=== PATIENT | male | born 1950 | race Caucasian/White ===

== ENCOUNTER 2016-02-20 07:51 | Inpatient (IN) | payer OTHER, MEDICARE ==
[~2016-02-20] VITALS: Ht 180.3 cm; Wt 100.3 kg
[~2016-02-20 07:51] MED LIST: DOXY100C PO; METF500T PO; TRAM50TA PO
[2016-02-20 07:55] VITALS: BP 139/71; PULSE 88; RESP 22; TEMP 98.1; O2SAT 99
[2016-02-20] MEDS ORDERED: PIPERACIL-TAZO 4.5 GM PREMIX 100 ML IV STA (08:08)
[2016-02-20] MEDS ORDERED: VANCOMYCIN INJ 1,000 MG in SODIUM CHLOR 0.9% 250 ML INJ 250 ML IV STA (08:08)
--- NOTE | 2016-02-20 08:13 | PD ---
HPI Chief Complaint: Skin Problem Time Seen by Provider: 08:03 Travel History International Travel<30 days: No Contact w/Intl Traveler<30days: No Traveled to known affect area: No History of Present Illness HPI 65-year-old male with history of diabetes, COPD, recent admission for sepsis from right leg cellulitis, presents to the ER today after having signed out to weeks ago for sepsis, complaining of increased left leg swelling and pain. He states that he also has had multiple areas on the arms, legs, and neck of pustules to pop up and then become painful sores. He has been having chills. He states his COPD he has been acting up and he has been having shortness of breath and dyspnea on exertion ongoing. He denies any chest pains, abdominal pains, or other symptoms. Modifying Factors: None Associated Signs & Symptoms: Sores on the extremities, left leg swelling and pain Risk Factors: Recent admission for right leg cellulitis PFSH Past Medical History Asthma: Yes Anxiety: Yes Depression: Yes Heart Rhythm Problems: No Cancer: No Cardiovascular Problems: Yes High Cholesterol: Yes Chest Pain: Yes Congestive Heart Failure: No COPD: Yes Cerebrovascular Accident: Yes Diabetes: Yes Patient Takes Glucophage: No Endocrine: Yes Genitourinary: No Hypertension: Yes Immune Disorder: No Musculoskeletal: No Neurologic: No Psychiatric: Yes Reproductive: No Respiratory: Yes Sleep Apnea: No Thyroid Disease: No Tetanus Vaccination: < 5 Years Past Surgical History Abdominal Surgery: Yes (COLOSTOMY AND REVERSAL) Cardiac Surgery: No Ear Surgery: No Endocrine Surgery: No Eye Surgery: No Genitourinary Surgery: No Oral Surgery: No Thoracic Surgery: No Tonsillectomy: Yes Other Surgery: Yes (SPLEENECTOMY) Social History Alcohol Use: Yes (1-2 BEERS DAILY) Tobacco Use: No (QUIT 2016) Substance Use: No Allergies-Medications (Allergen,Severity, Reaction): Coded Allergies: No Known Allergies (Unverified , 02/20/16) Reported Meds & Prescriptions Reported Meds & Active Scripts Active Reported Metformin (Metformin HCl) 500 Mg Tab 500 Mg PO BIDPC With meals Review of Systems Except as stated in HPI: all other systems reviewed are Neg Physical Exam Narrative GENERAL: Well-nourished, well-developed elderly white male patient in mild respiratory distress after getting up from wheelchair. Awake and oriented 3. SKIN: Warm and dry. Notable for several areas of excoriation and surrounding erythema which is diffuse on his arms, back of the neck, and legs. HEAD: Normocephalic. EYES: No scleral icterus. No injection or drainage. NECK: Supple, trachea midline. CARDIOVASCULAR: Regular rate and rhythm without murmurs, gallops, or rubs. RESPIRATORY: Breath sounds equal bilaterally. No accessory muscle use. GASTROINTESTINAL: Abdomen soft, non-tender, nondistended. MUSCULOSKELETAL: No cyanosis, or edema. BACK: Nontender without obvious deformity. No CVA tenderness. EXTREMITIES: No clubbing, cyanosis, or edema. No joint tenderness, effusion, or edema noted. Bilateral posterior calf tenderness with erythema surrounding excoriated areas. No fluctuance. Data Data Last Documented VS Vital Signs Date Time Temp Pulse Resp B/P Pulse Ox O2 Delivery O2 Flow Rate FiO2 02/20/16 08:36 97 Room Air 02/20/16 08:36 18 02/20/16 07:55 98.1 88 139/71 Orders Complete Blood Count With Diff (02/20/16 08:08) Comprehensive Metabolic Panel (02/20/16 08:08) Lactic Acid Sepsis Protocol (02/20/16 08:08) Blood Culture (02/20/16 08:08) Chest, Single Ap (02/20/16 08:08) Blood Glucose (02/20/16 08:08) Ecg Monitoring (02/20/16 08:08) Iv Access Insert/Monitor (02/20/16 08:08) Oximetry (02/20/16 08:08) Oxygen Administration (02/20/16 08:08) Piperacil-Tazo 4.5 Gm Premix (Zosyn 4.5 (02/20/16 08:08) Vancomycin Inj (Vancomycin Inj) (02/20/16 08:08) Prothrombin Time / Inr (Pt) (02/20/16 08:08) Act Partial Throm Time (Ptt) (02/20/16 08:08) Us Leg Venous Doppler Bilat (02/20/16 08:08) Admit Order (Ed Use Only) (02/20/16 10:55) Labs Laboratory Tests Test 02/20/16 08:12 White Blood Count 4.0 TH/MM3 Red Blood Count 3.44 MIL/MM3 Hemoglobin 11.6 GM/DL Hematocrit 33.3 % Mean Corpuscular Volume 96.9 FL Mean Corpuscular Hemoglobin 33.6 PG Mean Corpuscular Hemoglobin 34.7 % Concent Red Cell Distribution Width 14.6 % Platelet Count 61 TH/MM3 Mean Platelet Volume 8.7 FL Neutrophils (%) (Auto) 74.7 % Lymphocytes (%) (Auto) 12.3 % Monocytes (%) (Auto) 10.7 % Eosinophils (%) (Auto) 1.5 % Basophils (%) (Auto) 0.8 % Neutrophils # (Auto) 3.0 TH/MM3 Lymphocytes # (Auto) 0.5 TH/MM3 Monocytes # (Auto) 0.4 TH/MM3 Eosinophils # (Auto) 0.1 TH/MM3 Basophils # (Auto) 0.0 TH/MM3 CBC Comment AUTO DIFF Differential Comment AUTO DIFF CONFIRMED Platelet Estimate LOW Platelet Morphology Comment NORMAL Red Cell Morphology Comment NORMAL Prothrombin Time 12.5 SEC Prothromb Time International 1.1 RATIO Ratio Activated Partial 38.2 SEC Thromboplast Time Sodium Level 136 MEQ/L Potassium Level 4.4 MEQ/L Chloride Level 105 MEQ/L Carbon Dioxide Level 21.9 MEQ/L Anion Gap 9 MEQ/L Blood Urea Nitrogen 14 MG/DL Creatinine 1.53 MG/DL Estimat Glomerular Filtration 46 ML/MIN Rate Random Glucose 127 MG/DL Lactic Acid Level 2.6 mmol/L Calcium Level 8.0 MG/DL Total Bilirubin 2.1 MG/DL Aspartate Amino Transf 74 U/L (AST/SGOT) Alanine Aminotransferase 36 U/L (ALT/SGPT) Alkaline Phosphatase 167 U/L Total Protein 7.4 GM/DL Albumin 2.3 GM/DL [facility] Medical Decision Making Medical Screen Exam Complete: Yes Emergency Medical Condition: Yes Medical Record Reviewed: Yes Interpretation(s) Laboratory Tests Test 02/20/16 08:12 Red Blood Count 3.44 MIL/MM3 (4.50-5.90) Hemoglobin 11.6 GM/DL (13.0-17.0) Hematocrit 33.3 % (39.0-51.0) Platelet Count 61 TH/MM3 (150-450) Neutrophils (%) (Auto) 74.7 % (16.0-70.0) Monocytes (%) (Auto) 10.7 % (0.0-8.0) Lymphocytes # (Auto) 0.5 TH/MM3 (1.0-4.8) Platelet Estimate LOW (NORMAL) Prothrombin Time 12.5 SEC (9.8-11.6) Activated Partial 38.2 SEC Thromboplast Time (24.3-30.1) Creatinine 1.53 MG/DL (0.60-1.30) Estimat Glomerular Filtration 46 ML/MIN (>89) Rate Random Glucose 127 MG/DL (74-106) Lactic Acid Level 2.6 mmol/L (0.4-2.0) Calcium Level 8.0 MG/DL (8.5-10.1) Total Bilirubin 2.1 MG/DL (0.2-1.0) Aspartate Amino Transf 74 U/L (15-37) (AST/SGOT) Alkaline Phosphatase 167 U/L (45-117) Albumin 2.3 GM/DL (3.4-5.0) Last 24 hours Impressions Lower Extremity Ultrasound 02/20/16807 Signed Impressions: Service Date/Time: February 09:52 - CONCLUSION: Normal examination. Alberto Guallpa MD Chest X-Ray 02/20/16807 Signed Impressions: Service Date/Time: February 08:06 - CONCLUSION: No acute disease. Gagandeep Damon MD Differential Diagnosis Cellulitis of the legs versus DVT versus dependent edema versus insect bites/ localized allergic reaction Narrative Course There is significant cellulitis and IV antibiotics were initiated. Ultrasound reveals no signs of DVT. Case was then discussed with Dr. Burgos for admission. Diagnosis Primary Impression: Cellulitis of right lower extremity Admitting Information Admitting Physician Requests: Admit Samy Bonilla MD Feb 20, 2016 08:13
--- NOTE | 2016-02-20 08:22 | RADRPT ---
EXAM DATE/TIME: 02/20/2016 08:06 [facility] COMPARISON: CHEST SINGLE AP, January 20, 2016, 3:17. INDICATIONS : Short of breath MEDICAL HISTORY : Diabetes mellitus type II. SURGICAL HISTORY : None. ENCOUNTER: Initial ACUITY: 1 day PAIN SCORE: 0/10 LOCATION: Bilateral chest FINDINGS: A single view of the chest demonstrates the lungs to be symmetrically aerated without evidence of mas s, infiltrate or effusion. The cardiomediastinal contours are unremarkable. Osseous structures are intact. CONCLUSION: No acute disease. Gagandeep Damon MD on February 20, 2016 at 8:20 Board Certified Radiologist. This report was verified electronically.
[2016-02-20 08:36] VITALS: RESP 18; O2SAT 97
[2016-02-20 08:45] LABS: BASOPHIL % 0.8 % (0.0-2.0); EOSINOPHIL # 0.1 TH/MM3 (0-0.4); EOSINOPHIL % 1.5 % (0.0-4.0); HEMATOCRIT 33.3 % (39.0-51.0); LYMPH % 12.3 % (9.0-44.0); LYMPHOCYTE # 0.5 TH/MM3 (1.0-4.8); MEAN CELL VOLUME 96.9 FL (80.0-100.0); MEAN CORPUSCULAR HEMOGLOBIN 33.6 PG (27.0-34.0); MEAN CORPUSCULAR HGB CONC 34.7 % (32.0-36.0); MONO % 10.7 % (0.0-8.0); NEUT % 74.7 % (16.0-70.0); PLATELET COUNT 61 TH/MM3 (150-450); RED BLOOD COUNT 3.44 MIL/MM3 (4.50-5.90); RED CELL DISTRIBUTION WIDTH 14.6 % (11.6-17.2)
[2016-02-20 08:48] LABS: HEMO FLAGS AUTO DIFF
[2016-02-20 08:58] LABS: ALT (GPT) 36 U/L (12-78); ANION GAP 9 MEQ/L (5-15); AST (GOT) 74 U/L (15-37); BICARBONATE 21.9 MEQ/L (21.0-32.0); BLOOD UREA NITROGEN 14 MG/DL (7-18); CHLORIDE 105 MEQ/L (98-107); GLOMERULAR FILTRATION RATE 46 ML/MIN (>89); POTASSIUM 4.4 MEQ/L (3.5-5.1); SODIUM (NA) 136 MEQ/L (136-145)
[2016-02-20 09:01] LABS: ALKALINE PHOSPHATASE 167 U/L (45-117); TOTAL BILIRUBIN ADULT 2.1 MG/DL (0.2-1.0)
[2016-02-20 09:02] LABS: APTT (PATIENT) 38.2 SEC (24.3-30.1); INTERNATIONAL NORMALIZED RATIO 1.1 RATIO; PROTHROMBIN TIME - PATIENT 12.5 SEC (9.8-11.6)
[2016-02-20 09:30] LABS: PLATELET ESTIMATE SMEAR LOW (NORMAL); PLATELET MORPHOLOGY NORMAL (NORMAL); SCAN/DIFF AUTO DIFF CONFIRMED
[2016-02-20 10:38] LABS: LACTIC ACID GHOST NOT REPORTABLE
--- NOTE | 2016-02-20 10:52 | RADRPT ---
EXAM DATE/TIME: 02/20/2016 09:52 [facility] COMPARISON: No previous studies available for comparison. INDICATIONS : Thrombosis. MEDICAL HISTORY : CVA. Diabetic. Diverticulitis. Chronic obstructive pulmonary disease. Hypertension. Hypercholester olemia SURGICAL HISTORY : Tonsillectomy. Ostomy and reversal ENCOUNTER: Subsequent ACUITY: 1 month PAIN SCORE: 10/10 LOCATION: Bilateral leg. TECHNIQUE: Venous ultrasound of the left and right leg was performed from the inguinal ligament to the proximal calf. Real-time, color Doppler and spectral tracing, compression and augmentation techniques were us ed. FINDINGS: RIGHT LEG: There is normal compressibility of the deep venous system from the inguinal region to the proximal ca lf. No echogenic clot is seen in the lumen of the common femoral, femoral, popliteal, and posterior tibial veins. There is a normal response of the venous system to proximal and distal augmentation an d respiration. LEFT LEG: There is normal compressibility of the deep venous system from the inguinal region to the proximal ca lf. No echogenic clot is seen in the lumen of the common femoral, femoral, popliteal, and posterior tibial veins. There is a normal response of the venous system to proximal and distal augmentation an d respiration. CONCLUSION: Normal examination. Alberto Guallpa MD on February 20, 2016 at 10:36 Board Certified Radiologist. This report was verified electronically.
[2016-02-20 12:36] VITALS: BP 134/74; PULSE 88; RESP 18; O2SAT 97
[2016-02-20] MEDS ORDERED: ACETAMINOPHEN/HYDROcodone 325 MG/5 MG TAB PO PRN (13:15)
[2016-02-20] MEDS ORDERED: MAGNESIUM HYDROXIDE SUSP 30 ML CUP PO PRN (13:15)
[2016-02-20] MEDS ORDERED: SODIUM CHLORIDE 0.9% FLUSH 5 ML FLUSH FLUSH PRN (13:15)
[2016-02-20] MEDS ORDERED: RESP: ALBUTEROL 2.5 MG/IPRATROPIUM 0.5 MG NEB (PRN) NEB (13:15)
[2016-02-20] MEDS ORDERED: ONDANSETRON HCL 4 MG/2 ML VIAL IVP PRN (13:15)
[2016-02-20] MEDS ORDERED: NALOXONE HCL 0.4 MG/ML AMP IV PRN (13:15)
[2016-02-20] MEDS ORDERED: Vancomycin Consult Pharmacy 1 EA OTHER SCH (13:15)
[2016-02-20] MEDS ORDERED: DEXTROSE 50% IN WATER 50 ML VIAL(D50) IV PUSH PRN (13:15)
[2016-02-20] MEDS ORDERED: ACETAMINOPHEN 325 MG TAB PO PRN ×2 (13:15)
[2016-02-20] MEDS ORDERED: GLUCAGON 1 MG/ML VIAL OTHER PRN (13:15)
[2016-02-20] MEDS ORDERED: ENOXAPARIN SODIUM 40 MG/0.4 ML SYRINGE SQ SCH (13:15)
--- NOTE | 2016-02-20 13:17 | HHI.HP ---
[facility] Primary Care Physician [facility] Admission Diagnosis leg cellulitis Diagnoses: (1) Cellulitis of both lower extremities (2) Infection of skin (3) COPD exacerbation Chief Complaint: Painful Skin rash/erythema bilateral lower extremities Travel History International Travel<30 Days: No Contact w/Intl Traveler <30 Da: No Traveled to Known Affected Are: No History of Present Illness 65-year-old male with past medical history diabetes type 2, came to the ED for evaluation of multiple skin rash, bilateral lower extremity erythema/ redness and swelling mostly worse on the left than the right evolving lower leg down to the ankle along with multiple skin sores covering his entire body surface. Patient states, that a month ago he went out fishing at the [employer] and was bitten by mosquitoes. Since then he has noticed multiple skin sores which have progressively gotten worse. Over the past few days he has had worsening and painful swelling of bilateral lower extremities however more so into left than the right. She reported subjective fever. States the pain is a 10 out of 10 in intensity. Patient also complained of shortness of breath and has noticed increase wheezing. Otherwise he has no other issues. Review of Systems Other Other 12 systems reviewed and are negative except for the one mentioned in the history of present illness Past Family Social History Past Medical History COPD Tobacco abuse Liver cirrhosis Type 2 diabetes Hypertension Dyslipidemia Diverticulitis h Past Surgical History History of colostomy and reversal Splenectomy Tonsillectomy Reported Medications Metformin 500 mg twice a day Allergies: Coded Allergies: No Known Allergies (Unverified , 02/20/16) Family History Family history positive for diabetes type 2 in his grandmother Social History Used to smoke 1 pack per day 40 years until he quit 2 weeks ago Drinks 1-2 beers per day Physical Exam Vital Signs Vital Signs Date Time Temp Pulse Resp B/P Pulse Ox O2 Delivery O2 Flow Rate FiO2 02/20/16 12:36 88 18 134/74 97 02/20/16 08:36 97 Room Air 02/20/16 08:36 18 97 Room Air 02/20/16 07:55 98.1 88 22 139/71 99 Physical Exam GENERAL: This is a well-nourished, well-developed patient, in no apparent distress. SKIN: Multiple sores with several areas of excoriation and surrounding erythema which is diffuse on his arms, back of the neck, and legs. HEAD: Atraumatic. Normocephalic. No temporal or scalp tenderness. EYES: Pupils equal round and reactive. Extraocular motions intact. No scleral icterus. No injection or drainage. ENT: Nose without bleeding, purulent drainage or septal hematoma. Throat without erythema, tonsillar hypertrophy or exudate. Uvula midline. Airway patent. NECK: Trachea midline. No JVD or lymphadenopathy. Supple, nontender, no meningeal signs. CARDIOVASCULAR: Regular rate and rhythm without murmurs, gallops, or rubs. RESPIRATORY: Clear to auscultation. Breath sounds decrease bilaterally. Positive for expiratory wheezing GASTROINTESTINAL: Abdomen soft, non-tender, nondistended. No hepato-splenomegaly , or palpable masses. No guarding. MUSCULOSKELETAL: Extremities without clubbing, cyanosis, or edema. Bilateral posterior calf tenderness with erythema surrounding excoriated areas L>R lower extremities NEUROLOGICAL: Awake and alert. Cranial nerves II through XII intact. Motor and sensory grossly within normal limits. Five out of 5 muscle strength in all muscle groups. Normal speech. Laboratory Laboratory Tests Test 02/20/16 02/20/16 08:12 11:56 White Blood Count 4.0 Red Blood Count 3.44 Hemoglobin 11.6 Hematocrit 33.3 Mean Corpuscular Volume 96.9 Mean Corpuscular Hemoglobin 33.6 Mean Corpuscular Hemoglobin 34.7 Concent Red Cell Distribution Width 14.6 Platelet Count 61 Mean Platelet Volume 8.7 Neutrophils (%) (Auto) 74.7 Lymphocytes (%) (Auto) 12.3 Monocytes (%) (Auto) 10.7 Eosinophils (%) (Auto) 1.5 Basophils (%) (Auto) 0.8 Neutrophils # (Auto) 3.0 Lymphocytes # (Auto) 0.5 Monocytes # (Auto) 0.4 Eosinophils # (Auto) 0.1 Basophils # (Auto) 0.0 CBC Comment AUTO DIFF Differential Comment AUTO DIFF CONFIRMED Platelet Estimate LOW Platelet Morphology Comment NORMAL Red Cell Morphology Comment NORMAL Prothrombin Time 12.5 Prothromb Time International 1.1 Ratio Activated Partial 38.2 Thromboplast Time Sodium Level 136 Potassium Level 4.4 Chloride Level 105 Carbon Dioxide Level 21.9 Anion Gap 9 Blood Urea Nitrogen 14 Creatinine 1.53 Estimat Glomerular Filtration 46 Rate Random Glucose 127 Lactic Acid Level 2.6 1.1 Calcium Level 8.0 Total Bilirubin 2.1 Aspartate Amino Transf 74 (AST/SGOT) Alanine Aminotransferase 36 (ALT/SGPT) Alkaline Phosphatase 167 Total Protein 7.4 Albumin 2.3 Date/Time Procedure Status Source Growth 02/20/16 08:20 Aerobic Blood Culture Received Blood Peripheral Pending 02/20/16 08:20 Anaerobic Blood Culture Received Blood Peripheral Pending Result Diagram: 02/20/1612 02/20/16811 Imaging Last Impressions Lower Extremity Ultrasound 02/20/16807 Signed Impressions: Service Date/Time: February 09:52 - CONCLUSION: Normal examination. Alberto Guallpa MD Chest X-Ray 02/20/16807 Signed Impressions: Service Date/Time: , February 20, 2016 08:06 - CONCLUSION: No acute disease. Gagandeep Damon MD Assessment and Plan Problem List: (1) Cellulitis of both lower extremities ICD Code: L03.115 Status: Acute (2) Infection of skin ICD Code: L08.9 Status: Acute (3) COPD exacerbation ICD Code: J44.1 Status: Acute (4) Alcohol dependence ICD Code: F10.20 Status: Acute (5) Thrombocytopenia ICD Code: D69.6 Status: Acute Assessment and Plan 65-year-old male with Cellulitis of both lower extremities as well as skin infection: Status post vancomycin and Zosyn IV 1 in ED, will continue with Zosyn 3.3 and 75 mg every 8 IV and vancomycin 1.2 mg every 24H pending culture. May consider consultation to infectious diseases specialist COPD exacerbation: Chest x-ray noted and reviewed by me without any acute pulmonary disease however patient symptomatic therefore was treated with prednisone 20 mg by mouth daily, start Spiriva, Mucinex and Symbicort as well as DuoNeb when necessary and schedule. Maintain oxygen saturation above 92%. Diabetes type 2: Resume metformin, starts insulin sliding scale with fingerstick blood glucose monitoring. Hypertension: Currently normotensive on no medication, continue to monitor. History of hyperlipidemia: Not on any statin, check lipid profile and treat accordingly. History of alcohol abuse: Counseled to quit, start rally pack, CIWS per protocol Thrombocytopenia: 2/2 liver disease, continue to monitor DVT prophylaxis: Heparin Code Status Full code Discussed Condition With Patient, ED physician Physician Certification 2 Midnight Certification Type: Admission for Inpatient Services Order for Inpatient Services The services are ordered in accordance with Medicare regulations or non- Medicare payer requirements, as applicable. In the case of services not specified as inpatient-only, they are appropriately provided as inpatient services in accordance with the 2-midnight benchmark. Estimated LOS (days): 2 days is the estimated time the patient will need to remain in the hospital, assuming treatment plan goals are met and no additional complications. Post-Hospital Plan: Not yet determined Gagandeep Burgos MD Feb 20, 2016 13:17
[2016-02-20] MEDS ORDERED: predniSONE 20 MG TAB PO SCH (14:00)
[2016-02-20] MEDS ORDERED: VANCOMYCIN 1,000 MG/NS 250 ML IV ONE ×2 (15:00)
[2016-02-20 15:07] VITALS: BP 138/76; PULSE 90; RESP 18; O2SAT 96
[2016-02-20] MEDS: ACETAMINOPHEN/HYDROcodone 325 MG/7.5 MG TAB PO PRN (15:12)
[2016-02-20] MEDS: PIPERACIL-TAZO 3.375 GM PREMIX 50 ML IV SCH (16:33)
[2016-02-20] MEDS: INSULIN NovoLIN REGULAR SUPPLEMENTAL SCALE SQ SCH ×2 (16:42→21:00)
[2016-02-20] MEDS: RESP: ALBUTEROL 2.5 MG/IPRATROPIUM 0.5 MG NEB (SCH) NEB ×2 (16:52→22:38)
[2016-02-20] MEDS: metFORMIN HCL 500 MG TAB PO SCH (17:52)
[2016-02-20 18:07] VITALS: BP 142/80; PULSE 88; RESP 18; O2SAT 95
[2016-02-20] MEDS: guaiFENesin E.R. 600 MG TAB PO SCH (22:28)
[2016-02-20] MEDS: HEPARIN SODIUM - SQ 10,000 UNITS/ML VIAL SQ SCH (22:28)
[2016-02-20] MEDS: SODIUM CHLORIDE 0.9% FLUSH 5 ML FLUSH FLUSH SCH (23:09)
[2016-02-20] MEDS: BUDESONIDE-FORMOTEROL 160/4.5 MCG INHALER INH SCH (23:09)
[2016-02-20] MEDS: LACTOBACILLUS ACIDOPHILUS TAB PO SCH (23:10)
[2016-02-21] MEDS: PIPERACIL-TAZO 3.375 GM PREMIX 50 ML IV SCH ×3 (00:01→17:35)
[2016-02-21 00:08] VITALS: BP 128/76; PULSE 70; RESP 22; TEMP 96.2; O2SAT 97
[2016-02-21 04:27] VITALS: BP 107/56; PULSE 57; RESP 16; TEMP 96.7; O2SAT 96
[2016-02-21] MEDS: INSULIN NovoLIN REGULAR SUPPLEMENTAL SCALE SQ SCH ×4 (07:00→22:29)
--- NOTE | 2016-02-21 08:44 | HHI.PR ---
Subjective Remarks Follow-up lower extremity cellulitis/skin sores and infection 02/21/16-patient seen and examined, complaints of lower extremities wound drainage. Some shortness of breath and wheezing as well as coughing mostly nonproductive. Afebrile Objective Vitals Vital Signs Date Time Temp Pulse Resp B/P Pulse Ox O2 Delivery O2 Flow Rate FiO2 02/21/16 04:27 96.7 57 16 107/56 96 02/21/16 00:08 96.2 70 22 128/76 97 02/20/16 18:07 88 18 142/80 95 Room Air 02/20/16 15:07 90 18 138/76 96 Room Air 02/20/16 12:36 88 18 134/74 97 I/O 02/20/16 02/20/16 02/20/16 02/21/16 02/21/16 02/21/16 07:00 15:00 23:00 07:00 15:00 23:00 Intake Total 350 ml Output Total 800 ml Balance -450 ml Intake Oral 350 ml Output Urine Total 800 ml # Voids 2 Result Diagram: 02/20/16 0812 02/20/16 0812 Imaging Last Impressions Lower Extremity Ultrasound 02/20/16 0808 Signed Impressions: Service Date/Time: February 09:52 - CONCLUSION: Normal examination. Alberto Guallpa MD Chest X-Ray 02/20/16 0808 Signed Impressions: Service Date/Time: February 08:06 - CONCLUSION: No acute disease. Gagandeep Damon MD Objective Remarks GENERAL: NAD SKIN: Multiple sores with several areas of excoriation and surrounding erythema which is diffuse on his arms, back of the neck, and legs. HEAD: Normocephalic. EYES: No scleral icterus. No injection or drainage. NECK: Supple, trachea midline. No JVD or lymphadenopathy. CARDIOVASCULAR: Regular rate and rhythm without murmurs, gallops, or rubs. RESPIRATORY: Breath sounds equal bilaterally. No accessory muscle use.exp wheezing GASTROINTESTINAL: Abdomen soft, non-tender, nondistended. MUSCULOSKELETAL: No cyanosis, or edema. Bilateral posterior calf tenderness with erythema surrounding excoriated areas L>R lower extremities with some drainage BACK: Nontender without obvious deformity. No CVA tenderness. A/P Problem List: (1) Cellulitis of both lower extremities ICD Code: L03.115 Status: Acute (2) Infection of skin ICD Code: L08.9 Status: Acute (3) COPD exacerbation ICD Code: J44.1 Status: Acute (4) Alcohol dependence ICD Code: F10.20 Status: Acute (5) Thrombocytopenia ICD Code: D69.6 Status: Acute Assessment and Plan 65-year-old male with Cellulitis of both lower extremities as well as skin infection: Status post vancomycin and Zosyn IV 1 in ED, on Zosyn and vancomycin IV pending culture. May consider consultation to infectious diseases specialist. Will consult wound care nurse COPD exacerbation: Patient still symptomatic therefore will d/c prednisone 20 mg by mouth daily, start Solu-Medrol 40 mg IV every 12H, continue Spiriva, Mucinex and Symbicort as well as DuoNeb when necessary and schedule. Maintain oxygen saturation above 92%. Diabetes type 2: on metformin, continue insulin sliding scale with fingerstick blood glucose monitoring. Hypertension: Currently normotensive on no medication, continue to monitor. History of hyperlipidemia: Not on any statin, check lipid profile and treat accordingly. History of alcohol abuse: Counseled to quit, continue rally pack, CIWS per protocol Thrombocytopenia: 2/2 liver disease, continue to monitor DVT prophylaxis: Gagandeep Thacker MD Feb 21, 2016 08:44
[2016-02-21 08:57] VITALS: BP 103/54; PULSE 55; RESP 20; TEMP 96.3; O2SAT 96
[2016-02-21] MEDS ORDERED: VANCOMYCIN INJ 1,250 MG in SODIUM CHLOR 0.9% 250 ML INJ 250 ML IV SCH (09:00)
[2016-02-21 09:21] LABS: AUTOMATED NEUTROPHIL # 1.5 TH/MM3 (1.8-7.7); BASOPHIL % 0.4 % (0.0-2.0); EOSINOPHIL % 0.2 % (0.0-4.0); HEMATOCRIT 31.1 % (39.0-51.0); LYMPH % 24.6 % (9.0-44.0); LYMPHOCYTE # 0.6 TH/MM3 (1.0-4.8); MEAN CELL VOLUME 96.3 FL (80.0-100.0); MEAN CORPUSCULAR HEMOGLOBIN 32.3 PG (27.0-34.0); MEAN CORPUSCULAR HGB CONC 33.6 % (32.0-36.0); MONO % 17.4 % (0.0-8.0); NEUT % 57.4 % (16.0-70.0); PLATELET COUNT 53 TH/MM3 (150-450); RED BLOOD COUNT 3.23 MIL/MM3 (4.50-5.90); WHITE BLOOD COUNT 2.6 TH/MM3 (4.0-11.0)
[2016-02-21 09:39] LABS: HEMO FLAGS AUTO DIFF
[2016-02-21 09:47] LABS: ALKALINE PHOSPHATASE 128 U/L (45-117); ALT (GPT) 32 U/L (12-78); ANION GAP 10 MEQ/L (5-15); AST (GOT) 74 U/L (15-37); BICARBONATE 20.4 MEQ/L (21.0-32.0); BLOOD UREA NITROGEN 18 MG/DL (7-18); CHLORIDE 109 MEQ/L (98-107); GLOMERULAR FILTRATION RATE 49 ML/MIN (>89); HDL CHOLESTEROL 18.3 MG/DL (40.0-60.0); LDL CHOLESTEROL 45 MG/DL (0-99); POTASSIUM 4.2 MEQ/L (3.5-5.1); SODIUM (NA) 139 MEQ/L (136-145); TOTAL BILIRUBIN ADULT 1.5 MG/DL (0.2-1.0)
[2016-02-21] MEDS: BUDESONIDE-FORMOTEROL 160/4.5 MCG INHALER INH SCH ×2 (10:30→22:20)
[2016-02-21] MEDS: LACTOBACILLUS ACIDOPHILUS TAB PO SCH ×2 (10:31→22:19)
[2016-02-21] MEDS: metFORMIN HCL 500 MG TAB PO SCH ×2 (10:31→17:34)
[2016-02-21] MEDS: guaiFENesin E.R. 600 MG TAB PO SCH ×2 (10:31→22:19)
[2016-02-21] MEDS: methylPREDNISolone SOD SUCC 40 MG/1 ML VIAL IV PUSH SCH ×2 (10:31→22:18)
[2016-02-21] MEDS: SODIUM CHLORIDE 0.9% FLUSH 5 ML FLUSH FLUSH SCH ×2 (10:32→22:18)
[2016-02-21] MEDS: VANCOMYCIN INJ 1,500 MG in SODIUM CHLORID 0.9% 500 ML INJ 500 ML IV SCH (10:33)
[2016-02-21] MEDS: HEPARIN SODIUM - SQ 10,000 UNITS/ML VIAL SQ SCH ×2 (10:33→22:19)
[2016-02-21] MEDS: RESP: ALBUTEROL 2.5 MG/IPRATROPIUM 0.5 MG NEB (SCH) NEB ×3 (10:47→20:00)
[2016-02-21] MEDS: TIOTROPIUM BROMIDE 18 MCG INH INH SCH (11:33)
[2016-02-21 11:43] VITALS: BP 113/70; PULSE 67; RESP 20; TEMP 97.7; O2SAT 97
[2016-02-21 11:43] LABS: PLATELET ESTIMATE SMEAR LOW (NORMAL); PLATELET MORPHOLOGY NORMAL (NORMAL); SCAN/DIFF AUTO DIFF CONFIRMED
[2016-02-21 16:02] VITALS: BP 130/73; PULSE 77; RESP 22; TEMP 97.8; O2SAT 97
[2016-02-21] MEDS: ACETAMINOPHEN/HYDROcodone 325 MG/7.5 MG TAB PO PRN (17:35)
[2016-02-21 19:44] VITALS: BP 130/71; PULSE 61; RESP 20; TEMP 98.1; O2SAT 95
[2016-02-21] MEDS: TEMAZEPAM 15 MG CAP PO PRN (22:34)
[2016-02-22] VITALS (7 sets, daily range): BP systolic 122–159; BP diastolic 61–80; PULSE 57–78; RESP 18–20; TEMP 96.2–98.1; O2SAT 93–97
[2016-02-22] MEDS: PIPERACIL-TAZO 3.375 GM PREMIX 50 ML IV SCH ×3 (00:03→17:48)
[2016-02-22 06:46] LABS: BICARBONATE 22.4 MEQ/L (21.0-32.0); POTASSIUM 4.8 MEQ/L (3.5-5.1)
[2016-02-22] MEDS: INSULIN NovoLIN REGULAR SUPPLEMENTAL SCALE SQ SCH ×4 (07:00→21:00)
[2016-02-22 07:05] LABS: AUTOMATED NEUTROPHIL # 2.7 TH/MM3 (1.8-7.7); BASOPHIL % 0.1 % (0.0-2.0); LYMPH % 13.4 % (9.0-44.0); LYMPHOCYTE # 0.4 TH/MM3 (1.0-4.8); MEAN CELL VOLUME 97.1 FL (80.0-100.0); MEAN CORPUSCULAR HEMOGLOBIN 32.6 PG (27.0-34.0); MEAN CORPUSCULAR HGB CONC 33.6 % (32.0-36.0); MONO % 4.6 % (0.0-8.0); NEUT % 81.9 % (16.0-70.0); PLATELET COUNT 48 TH/MM3 (150-450); RED CELL DISTRIBUTION WIDTH 15.2 % (11.6-17.2); WHITE BLOOD COUNT 3.3 TH/MM3 (4.0-11.0)
[2016-02-22 07:15] LABS: HEMO FLAGS AUTO DIFF
[2016-02-22] MEDS: RESP: ALBUTEROL 2.5 MG/IPRATROPIUM 0.5 MG NEB (SCH) NEB ×2 (08:00→14:00)
--- NOTE | 2016-02-22 09:38 | HHI.PR ---
Subjective Remarks Follow-up lower extremity cellulitis/skin sores and infection 02/21/16-patient seen and examined, complaints of lower extremities wound drainage. Some shortness of breath and wheezing as well as coughing mostly nonproductive. Afebrile 02/22/16-patient seen and examined; reports significant improvement or shortness of breath and wheezing as well as cough. Afebrile denies any chest pain. States his wounds are looking better Objective Vitals Vital Signs Date Time Temp Pulse Resp B/P Pulse Ox O2 Delivery O2 Flow Rate FiO2 02/22/16 07:26 97.7 60 18 122/72 95 02/22/16 04:25 98.1 58 20 159/74 94 02/22/16 00:16 98.0 59 18 125/61 97 02/21/16 19:44 98.1 61 20 130/71 95 02/21/16 18:40 18 02/21/16 16:02 97.8 77 22 130/73 97 02/21/16 11:43 97.7 67 20 113/70 97 Result Diagram: 02/22/1652102/22/16521 Imaging Last Impressions Lower Extremity Ultrasound 02/20/16807 Signed Impressions: Service Date/Time: February 09:52 - CONCLUSION: Normal examination. Alberto Guallpa MD Chest X-Ray 02/20/16807 Signed Impressions: Service Date/Time: February 08:06 - CONCLUSION: No acute disease. Gagandeep Damon MD Objective Remarks GENERAL: NAD SKIN: Multiple sores with several areas of excoriation and improving surrounding erythema which is diffuse on his arms, back of the neck, and legs. HEAD: Normocephalic. EYES: No scleral icterus. No injection or drainage. NECK: Supple, trachea midline. No JVD or lymphadenopathy. CARDIOVASCULAR: Regular rate and rhythm without murmurs, gallops, or rubs. RESPIRATORY: Breath sounds equal bilaterally. No accessory muscle use.exp wheezing GASTROINTESTINAL: Abdomen soft, non-tender, nondistended. MUSCULOSKELETAL: No cyanosis, or edema. Bilateral posterior improving calf tenderness with improving erythema surrounding excoriated areas L>R lower extremities with some drainage BACK: Nontender without obvious deformity. No CVA tenderness. A/P Problem List: (1) Cellulitis of both lower extremities ICD Code: L03.115 Status: Acute (2) Infection of skin ICD Code: L08.9 Status: Acute (3) COPD exacerbation ICD Code: J44.1 Status: Acute (4) Alcohol dependence ICD Code: F10.20 Status: Acute (5) Thrombocytopenia ICD Code: D69.6 Status: Acute Assessment and Plan 65-year-old male with Cellulitis of both lower extremities as well as skin infection: Status post vancomycin and Zosyn IV 1 in ED, continue Zosyn and vancomycin IV pending culture. May consider consultation to infectious diseases specialist if no improvement. Appreciate wound care nurse recommendation COPD exacerbation: Improving on Solu-Medrol 40 mg IV every 12H, continue Spiriva , Mucinex and Symbicort as well as DuoNeb when necessary and schedule. Likely switch to by mouth prednisone in a.m. 02/23/16. Maintain oxygen saturation above 92%. Peripheral vascular disease: Check CTA runoff bilateral lower extremities prior to discharge and May consider evaluation from vascular surgery Diabetes type 2: on metformin, continue insulin sliding scale with fingerstick blood glucose monitoring. Hypertension: Currently normotensive on no medication, continue to monitor. History of hyperlipidemia: LDL 45 therefore will not start patient on any statin History of alcohol abuse: Counseled to quit, continue rally pack, CIWS per protocol Thrombocytopenia: 2/2 liver disease, continue to monitor DVT prophylaxis: Heparin Gagandeep Burgos MD Feb 22, 2016 09:38
[2016-02-22] MEDS: SODIUM CHLORIDE 0.9% FLUSH 5 ML FLUSH FLUSH SCH ×2 (10:43→21:00)
[2016-02-22] MEDS: TIOTROPIUM BROMIDE 18 MCG INH INH SCH (10:43)
[2016-02-22] MEDS: BUDESONIDE-FORMOTEROL 160/4.5 MCG INHALER INH SCH ×2 (10:44→21:14)
[2016-02-22] MEDS: methylPREDNISolone SOD SUCC 40 MG/1 ML VIAL IV PUSH SCH ×2 (10:44→21:13)
[2016-02-22] MEDS: LACTOBACILLUS ACIDOPHILUS TAB PO SCH ×2 (10:44→21:13)
[2016-02-22] MEDS: metFORMIN HCL 500 MG TAB PO SCH (10:44)
[2016-02-22] MEDS: HEPARIN SODIUM - SQ 10,000 UNITS/ML VIAL SQ SCH ×2 (10:44→21:13)
[2016-02-22] MEDS: guaiFENesin E.R. 600 MG TAB PO SCH ×2 (10:45→21:13)
[2016-02-22 10:53] LABS: PLATELET ESTIMATE SMEAR LOW (NORMAL); PLATELET MORPHOLOGY NORMAL (NORMAL); SCAN/DIFF AUTO DIFF CONFIRMED; TARGET CELLS 1+ (NORMAL)
[2016-02-22] MEDS: VANCOMYCIN INJ 1,500 MG in SODIUM CHLORID 0.9% 500 ML INJ 500 ML IV SCH (11:53)
[2016-02-22] MEDS: diphenhydrAMINE HCL 25 MG CAP PO PRN (21:13)
[2016-02-23] VITALS: BP 144/78; PULSE 67; RESP 20; TEMP 96.5; O2SAT 93
[2016-02-23] MEDS: PIPERACIL-TAZO 3.375 GM PREMIX 50 ML IV SCH ×2 (00:56→08:49)
[2016-02-23] MEDS: ACETAMINOPHEN/HYDROcodone 325 MG/7.5 MG TAB PO PRN ×3 (00:56→21:08)
[2016-02-23 04:00] VITALS: BP 123/74; PULSE 59; RESP 20; TEMP 96.6; O2SAT 94
[2016-02-23] MEDS: INSULIN NovoLIN REGULAR SUPPLEMENTAL SCALE SQ SCH ×4 (07:00→21:00)
[2016-02-23] MEDS: RESP: ALBUTEROL 2.5 MG/IPRATROPIUM 0.5 MG NEB (SCH) NEB ×3 (07:35→21:04)
[2016-02-23 08:02] VITALS: BP 142/93; PULSE 70; RESP 18; TEMP 96.8; O2SAT 97
[2016-02-23] MEDS: guaiFENesin E.R. 600 MG TAB PO SCH ×2 (08:49→21:07)
[2016-02-23] MEDS: BUDESONIDE-FORMOTEROL 160/4.5 MCG INHALER INH SCH ×2 (08:50→21:08)
[2016-02-23] MEDS: TIOTROPIUM BROMIDE 18 MCG INH INH SCH (08:50)
[2016-02-23] MEDS: SODIUM CHLORIDE 0.9% FLUSH 5 ML FLUSH FLUSH SCH ×2 (08:50→21:08)
[2016-02-23] MEDS: HEPARIN SODIUM - SQ 10,000 UNITS/ML VIAL SQ SCH ×2 (08:50→21:07)
[2016-02-23] MEDS: LACTOBACILLUS ACIDOPHILUS TAB PO SCH ×2 (08:50→21:07)
[2016-02-23] MEDS: predniSONE 20 MG TAB PO SCH (08:50)
[2016-02-23] MEDS ORDERED: PHARMACY ORDERED LAB XX ONE (09:45)
[2016-02-23] MEDS: metFORMIN HCL 500 MG TAB PO SCH ×2 (10:47→17:12)
[2016-02-23] MEDS: VANCOMYCIN INJ 1,500 MG in SODIUM CHLORID 0.9% 500 ML INJ 500 ML IV SCH (10:57)
[2016-02-23 12:02] VITALS: BP 127/75; PULSE 53; RESP 18; TEMP 96.6; O2SAT 99
--- NOTE | 2016-02-23 13:14 | HHI.FPPN ---
Subjective Remarks Patient seen and examined this am. Vitals are stable. Afebrile. Saturating well on room air. Current recieving breating treatment, coughing the entire time. It is dry. Constant tickle. Feels his leg infection is improving. Has lots of itching, mostly in the morning and in the evening. He subconsciously scratches and then bleeds from his sore sites. Objective Vitals Vital Signs Date Time Temp Pulse Resp B/P Pulse Ox O2 Delivery O2 Flow Rate FiO2 02/23/16 12:02 96.6 53 18 127/75 99 02/23/16 08:02 96.8 70 18 142/93 97 02/23/16 04:00 96.6 59 20 123/74 94 02/23/16 01:56 18 02/23/16 00:00 96.5 67 20 144/78 93 02/22/16 20:00 96.2 78 20 138/72 95 02/22/16 18:42 96.6 69 18 140/80 94 02/22/16 15:08 97.5 57 18 130/78 93 I/O 02/22/16 02/22/16 02/22/16 02/23/16 02/23/16 02/23/16 07:00 15:00 23:00 07:00 15:00 23:00 Intake Total 120 ml 290 ml Balance 120 ml 290 ml Intake Oral 120 ml 240 ml IV Total 50 ml # Voids 1 2 # Bowel Movements 0 0 Result Diagram: 02/22/16 0522 02/22/16 0522 Imaging Last Impressions Lower Extremity Ultrasound 02/20/16 0808 Signed Impressions: Service Date/Time: February 09:52 - CONCLUSION: Normal examination. Alberto Guallpa MD Chest X-Ray 02/20/16 0808 Signed Impressions: Service Date/Time: February 08:06 - CONCLUSION: No acute disease. Gagandeep Damon MD Objective Remarks GENERAL: NAD SKIN: Multiple sores with several areas of excoriation and improving surrounding erythema which is diffuse on his arms, back of the neck, and legs. Sores on left leg (approx 5) are draining with surrounding erythema and several lesions on right leg are healing and have healing scar in the center. The left leg has some swelling. HEAD: Normocephalic. EYES: No scleral icterus. No injection or drainage. NECK: Supple, trachea midline. No JVD or lymphadenopathy. CARDIOVASCULAR: Regular rate and rhythm without murmurs, gallops, or rubs. RESPIRATORY: Breath sounds equal bilaterally. No accessory muscle use.exp wheezing GASTROINTESTINAL: Abdomen soft, non-tender, nondistended. MUSCULOSKELETAL: No cyanosis. Non pitting edema of LE. BACK: Nontender without obvious deformity. No CVA tenderness. A/P Assessment and Plan 65-year-old male with Cellulitis of both lower extremities as well as skin infection: Status post vancomycin and Zosyn IV 1 in ED, will continue with Zosyn 3.3 and 75 mg every 8 IV and vancomycin 1.2 mg every 24H (since 02/19). Appears significantly improved. * blood culture negative x 3 days * Will switch to PO abx Keflex 500 mg PO q8hrs * Motrin for swelling COPD exacerbation: Chest x-ray negative any acute pulmonary disease however patient was symptomatic therefore and was treated with prednisone 20 mg by mouth daily, Spiriva, Mucinex and Symbicort as well as DuoNeb when necessary and schedule. Maintain oxygen saturation above 92%. * Tessalon peals for dry nagging cough * Honey prn Diabetes type 2: Resume metformin, starts insulin sliding scale with fingerstick blood glucose monitoring. Hypertension: Currently normotensive on no medication, continue to monitor. History of hyperlipidemia: lipid profile wnl History of alcohol abuse: Counseled to quit, rally pack, CIWA per protocol Thrombocytopenia: 2/2 liver disease, continue to monitor DVT prophylaxis: Heparin Discharge Planning Will switch to PO abx, if continues to improve plan for d/c tomorrow. Problem List: (1) COPD exacerbation Status: Acute (2) Thrombocytopenia Status: Acute (3) Alcohol dependence Status: Acute (4) Cellulitis of both lower extremities Status: Acute Cathi Ruth MD R3 Feb 23, 2016 13:14
[2016-02-23] MEDS: IBUPROFEN 600 MG TAB PO SCH ×2 (14:00→21:07)
[2016-02-23] MEDS: CEPHALEXIN MONOHYDRATE 500 MG CAP PO SCH ×2 (14:45→21:06)
[2016-02-23 16:00] VITALS: BP 119/79; PULSE 53; RESP 18; TEMP 96.8; O2SAT 98
[2016-02-23] MEDS: diphenhydrAMINE HCL 25 MG CAP PO PRN (17:12)
[2016-02-23] MEDS: BENZONATATE 100 MG CAP PO SCH (17:12)
[2016-02-23 20:00] VITALS: BP 146/74; PULSE 63; RESP 20; TEMP 96.8; O2SAT 93
[2016-02-24] VITALS: BP 121/86; PULSE 68; RESP 20; TEMP 96.8; O2SAT 94
[2016-02-24 04:00] VITALS: BP 134/72; PULSE 62; RESP 20; TEMP 96.7; O2SAT 96
[2016-02-24] MEDS: CEPHALEXIN MONOHYDRATE 500 MG CAP PO SCH ×3 (06:55→21:04)
[2016-02-24] MEDS: IBUPROFEN 600 MG TAB PO SCH ×3 (06:56→21:04)
[2016-02-24] MEDS: INSULIN NovoLIN REGULAR SUPPLEMENTAL SCALE SQ SCH ×4 (06:56→21:00)
[2016-02-24] MEDS: ACETAMINOPHEN/HYDROcodone 325 MG/7.5 MG TAB PO PRN ×2 (06:59→21:04)
[2016-02-24] MEDS: RESP: ALBUTEROL 2.5 MG/IPRATROPIUM 0.5 MG NEB (SCH) NEB ×2 (07:36→12:38)
[2016-02-24 08:00] VITALS: BP 136/74; PULSE 62; RESP 20; TEMP 96.9; O2SAT 96
[2016-02-24 08:14] LABS: BICARBONATE 20.5 MEQ/L (21.0-32.0)
[2016-02-24 08:16] LABS: POTASSIUM 5.2 MEQ/L (3.5-5.1)
[2016-02-24] MEDS: metFORMIN HCL 500 MG TAB PO SCH (08:33)
[2016-02-24] MEDS: BENZONATATE 100 MG CAP PO SCH ×3 (08:33→17:05)
[2016-02-24] MEDS: predniSONE 20 MG TAB PO SCH (08:33)
[2016-02-24] MEDS: LACTOBACILLUS ACIDOPHILUS TAB PO SCH ×2 (08:33→21:04)
[2016-02-24] MEDS: guaiFENesin E.R. 600 MG TAB PO SCH ×2 (08:34→21:03)
[2016-02-24] MEDS: HEPARIN SODIUM - SQ 10,000 UNITS/ML VIAL SQ SCH ×2 (08:35→21:05)
[2016-02-24] MEDS: diphenhydrAMINE HCL 25 MG CAP PO PRN ×3 (08:40→21:03)
[2016-02-24] MEDS: TIOTROPIUM BROMIDE 18 MCG INH INH SCH (08:41)
[2016-02-24] MEDS: BUDESONIDE-FORMOTEROL 160/4.5 MCG INHALER INH SCH ×2 (08:42→21:00)
[2016-02-24 12:00] VITALS: BP 128/72; PULSE 64; RESP 20; TEMP 97.6; O2SAT 97
[2016-02-24] MEDS ORDERED: SYMB160A INH (12:28)
[2016-02-24] MEDS ORDERED: CEPH500C PO (12:28)
[2016-02-24] MEDS ORDERED: SPIRCAP INH (12:28)
[2016-02-24] MEDS ORDERED: LACT PO (12:28)
[2016-02-24] MEDS ORDERED: MUCI600T PO (12:28)
[2016-02-24] MEDS ORDERED: DIPH25CA PO (12:28)
--- NOTE | 2016-02-24 12:28 | HHI.DCPOC ---
Discharge Care Plan Goals to Promote Your Health * To prevent worsening of your condition and complications * To maintain your health at the optimal level Directions to Meet Your Goals Take your medications as prescribed Follow your dietary instruction Follow activity as directed Keep your appointments as scheduled Take your immunizations and boosters as scheduled If your symptoms worsen call your PCP, if no PCP go to Urgent Care Center or Emergency Room Smoking is Dangerous to Your Health. Avoid second hand smoke Call the 24-hour hour crisis hotline for domestic abuse at Mona Contreras MD Feb 24, 2016 12:28
--- NOTE | 2016-02-24 12:28 | HHI.DS ---
Discharge Summary Admission Date Feb 20, 2016 at 10:59 Discharge Date: Feb 25, 2016 Admitting Diagnosis leg cellulitis (1) Cellulitis of both lower extremities ICD Code: L03.115 Diagnosis: Principal (2) Infection of skin ICD Code: L08.9 Diagnosis: Principal (3) COPD exacerbation ICD Code: J44.1 Diagnosis: Secondary (4) Alcohol dependence ICD Code: F10.20 Diagnosis: Secondary (5) Thrombocytopenia ICD Code: D69.6 Diagnosis: Secondary Procedures none Brief History - From Admission 65-year-old male with past medical history diabetes type 2, came to the ED for evaluation of multiple skin rash, bilateral lower extremity erythema/ redness and swelling mostly worse on the left than the right evolving lower leg down to the ankle along with multiple skin sores covering his entire body surface. Patient states, that a month ago he went out [place] the [place] and was bitten by mosquitoes. Since then he has noticed multiple skin sores which have progressively gotten worse. Over the past few days he has had worsening and painful swelling of bilateral lower extremities however more so into left than the right. She reported subjective fever. States the pain is a 10 out of 10 in intensity. Patient also complained of shortness of breath and has noticed increase wheezing. Otherwise he has no other issues. CBC/BMP: 02/22/16 0522 02/24/16 0647 Significant Findings Laboratory Tests Test 02/22/16 02/23/16 02/24/16 05:22 10:45 06:47 White Blood Count 3.3 TH/MM3 (4.0-11.0) Red Blood Count 3.30 MIL/MM3 (4.50-5.90) Hemoglobin 10.8 GM/DL (13.0-17.0) Hematocrit 32.0 % (39.0-51.0) Platelet Count 48 TH/MM3 (150-450) Neutrophils (%) (Auto) 81.9 % (16.0-70.0) Lymphocytes # (Auto) 0.4 TH/MM3 (1.0-4.8) Platelet Estimate LOW (NORMAL) Target Cells 1+ (NORMAL) Chloride Level 108 MEQ/L 112 MEQ/L (98-107) (98-107) Blood Urea Nitrogen 26 MG/DL (7-18) 46 MG/DL (7-18) Creatinine 1.53 MG/DL 1.93 MG/DL (0.60-1.30) (0.60-1.30) Estimat Glomerular Filtration 46 ML/MIN (>89) 35 ML/MIN (>89) Rate Random Glucose 141 MG/DL (74-106) Calcium Level 8.2 MG/DL 8.2 MG/DL (8.5-10.1) (8.5-10.1) Vancomycin Level Trough 11.7 MCG/ML (5.0-10.0) Potassium Level 5.2 MEQ/L (3.5-5.1) Carbon Dioxide Level 20.5 MEQ/L (21.0-32.0) PE at Discharge GENERAL: NAD SKIN: Multiple sores with several areas of excoriation and improving surrounding erythema which is diffuse on his arms, back of the neck, and legs. HEAD: Normocephalic. EYES: No scleral icterus. No injection or drainage. NECK: Supple, trachea midline. No JVD or lymphadenopathy. CARDIOVASCULAR: Regular rate and rhythm without murmurs, gallops, or rubs. RESPIRATORY: Breath sounds equal bilaterally. No accessory muscle use.exp wheezing GASTROINTESTINAL: Abdomen soft, non-tender, nondistended. MUSCULOSKELETAL: No cyanosis, or edema. Bilateral posterior improving calf tenderness with improving erythema surrounding excoriated areas L>R lower extremities with some drainage BACK: Nontender without obvious deformity. No CVA tenderness. Hospital Course 65-year-old male with Cellulitis of both lower extremities as well as skin infection: Status post vancomycin and Zosyn IV 1 in ED, continue Zosyn and vancomycin IV pending culture. May consider consultation to infectious diseases specialist if no improvement. Appreciate wound care nurse recommendation. Improved. Discharged home on PO abx. To follow up with PCP and consultants at [place]. COPD exacerbation: Improving on Solu-Medrol 40 mg IV every 12H, continue Spiriva , Mucinex and Symbicort as well as DuoNeb when necessary and schedule. Likely switch to by mouth prednisone in a.m. 02/23/16. Maintain oxygen saturation above 92%. Peripheral vascular disease: Check CTA runoff bilateral lower extremities prior to discharge and May consider evaluation from vascular surgery Diabetes type 2: on metformin, continue insulin sliding scale with fingerstick blood glucose monitoring. Hypertension: Currently normotensive on no medication, continue to monitor. History of hyperlipidemia: LDL 45 therefore will not start patient on any statin History of alcohol abuse: Counseled to quit, continue rally pack, CIWS per protocol Thrombocytopenia: 2/2 liver disease, continue to monitor DVT prophylaxis: Heparin DC when arrangements done per CM Pt Condition on Discharge: Fair Discharge Disposition: Disch w/ Home Health Serv Discharge Time: > 30 minutes Discharge Instructions DIET: Follow Instructions for: Diabetic Diet Activities you can perform: Regular-No Restrictions Follow up Referrals: PCP Follow-up - 3-5 Days New Medications: Prednisone (21) 10 mg tab Dose Pack (Prednisone (21) 10 mg tab Dose Pack) 10 Mg Pack 10 MG PO DIRECTED Inflammation #1 Ref 0 DSPK Budesonide-Formoterol Inh (Symbicort Inh) 160-4.5 Mcg/Act Aero 2 PUFF INH Q12HR copd #30 INHALER Cephalexin (Cephalexin) 500 Mg Cap 500 MG PO Q8HR cellulitis #30 CAP Diphenhydramine (Diphenhydramine) 25 Mg Cap 25 MG PO Q6H PRN itching #15 CAP Guaifenesin ER 12 HR (Mucinex ER 12 HR) 600 Mg Suzi 600 MG PO BID cough #6 TAB Lactobacillus Acidophilus (Acidophilus/l-Sporogenes) 1 Tab Tab 1 TAB PO Q12HR probiotic, take 2 hrs appart a #30 TAB Tiotropium Inh (Spiriva Handihaler) 18 Mcg Cap 18 MCG INH DAILY copd #30 CAP Continued Medications: Metformin (Metformin) 500 Mg Tab 500 MG PO BIDPC With meals Blood Sugar Management #60 Ref 0 TAB Mona Contreras MD Feb 24, 2016 12:28
--- NOTE | 2016-02-24 13:55 | HHI.FF ---
Face to Face Verification Diagnosis: (1) Cellulitis (2) Respiratory failure (3) Tobacco abuse (4) Sepsis (5) Cellulitis of right lower extremity (6) Bandemia (7) COPD exacerbation (8) Liver cirrhosis Physical Therapy Order: Evaluate and Treat Occupational Therapy Order: Evaluate and Treat Home Health Nursing Order: Medical education Signs/symptoms of disease process Medication education-adverse effect Nursing assessment with vital signs I have seen patient Eric Ortiz on 02/24/16. My clinical findings support the need for the requested home health care services because: Ltd mobility - disease progression I certify that my clinical findings support that this patient is homebound because: Post-op weakness Mona Contreras MD Feb 24, 2016 13:55
[2016-02-24 16:00] VITALS: BP 132/70; PULSE 68; RESP 18; TEMP 98.1; O2SAT 99
--- NOTE | 2016-02-24 16:32 | HHI.PR ---
Subjective Remarks Patient is in nad. No n/v/d/c. Rash improving. However still with itchy skin. Objective Vitals Vital Signs Date Time Temp Pulse Resp B/P Pulse Ox O2 Delivery O2 Flow Rate FiO2 02/24/16 12:00 97.6 64 20 128/72 97 02/24/16 08:00 96.9 62 20 136/74 96 02/24/16 04:00 96.7 62 20 134/72 96 02/24/16 00:00 96.8 68 20 121/86 94 02/23/16 20:00 96.8 63 20 146/74 93 02/23/16 18:23 18 I/O 02/23/16 02/23/16 02/23/16 02/24/16 02/24/16 02/24/16 07:00 15:00 23:00 07:00 15:00 23:00 Intake Total 290 ml 1180 ml 240 ml 120 ml 720 ml Balance 290 ml 1180 ml 240 ml 120 ml 720 ml Intake Oral 240 ml 600 ml 240 ml 120 ml 720 ml IV Total 50 ml 580 ml # Voids 2 4 1 3 3 # Bowel Movements 0 0 0 Result Diagram: 02/22/16 0522 02/24/16 0647 Imaging Last Impressions Lower Extremity Ultrasound 02/20/16 0808 Signed Impressions: Service Date/Time: February 09:52 - CONCLUSION: Normal examination. Alberto Guallpa MD Chest X-Ray 02/20/16 0808 Signed Impressions: Service Date/Time: February 08:06 - CONCLUSION: No acute disease. Gagandeep Damon MD Objective Remarks GENERAL: NAD SKIN: Multiple sores with several areas of excoriation and improving surrounding erythema which is diffuse on his arms, back of the neck, and legs. HEAD: Normocephalic. EYES: No scleral icterus. No injection or drainage. NECK: Supple, trachea midline. No JVD or lymphadenopathy. CARDIOVASCULAR: Regular rate and rhythm without murmurs, gallops, or rubs. RESPIRATORY: Breath sounds equal bilaterally. No accessory muscle use.exp wheezing GASTROINTESTINAL: Abdomen soft, non-tender, nondistended. MUSCULOSKELETAL: No cyanosis, or edema. Bilateral posterior improving calf tenderness with improving erythema surrounding excoriated areas L>R lower extremities with some drainage BACK: Nontender without obvious deformity. No CVA tenderness. A/P Problem List: (1) Cellulitis of both lower extremities ICD Code: L03.115 Status: Acute (2) Infection of skin ICD Code: L08.9 Status: Acute (3) COPD exacerbation ICD Code: J44.1 Status: Acute (4) Alcohol dependence ICD Code: F10.20 Status: Acute (5) Thrombocytopenia ICD Code: D69.6 Status: Acute Assessment and Plan 65-year-old male with Cellulitis of both lower extremities as well as skin infection: Status post vancomycin and Zosyn IV 1 in ED, continue Zosyn and vancomycin IV pending culture. May consider consultation to infectious diseases specialist if no improvement. Appreciate wound care nurse recommendation COPD exacerbation: Improving on Solu-Medrol 40 mg IV every 12H, continue Spiriva , Mucinex and Symbicort as well as DuoNeb when necessary and schedule. Likely switch to by mouth prednisone in a.m. 02/23/16. Maintain oxygen saturation above 92%. Peripheral vascular disease: Check CTA runoff bilateral lower extremities prior to discharge and May consider evaluation from vascular surgery Diabetes type 2: on metformin, continue insulin sliding scale with fingerstick blood glucose monitoring. Hypertension: Currently normotensive on no medication, continue to monitor. History of hyperlipidemia: LDL 45 therefore will not start patient on any statin History of alcohol abuse: Counseled to quit, continue rally pack, CIWS per protocol Thrombocytopenia: 2/2 liver disease, continue to monitor DVT prophylaxis: Heparin DC when arrangements done per Mona Contreras MD Feb 24, 2016 16:32
[2016-02-24] MEDS ORDERED: PRED10PA PO (16:33)
[2016-02-24 20:00] VITALS: BP 147/82; PULSE 71; RESP 20; TEMP 96.8; O2SAT 95
[2016-02-24] MEDS: SODIUM CHLORIDE 0.9% FLUSH 5 ML FLUSH FLUSH SCH (21:00)
[2016-02-24] MEDS: TEMAZEPAM 15 MG CAP PO PRN (23:51)
[2016-02-25] VITALS: BP 116/64; PULSE 77; RESP 20; TEMP 96; O2SAT 96
[2016-02-25 04:00] VITALS: BP 146/70; PULSE 70; RESP 20; TEMP 96.5; O2SAT 96
[2016-02-25] MEDS: CEPHALEXIN MONOHYDRATE 500 MG CAP PO SCH (05:40)
[2016-02-25] MEDS: IBUPROFEN 600 MG TAB PO SCH (05:40)
[2016-02-25] MEDS: INSULIN NovoLIN REGULAR SUPPLEMENTAL SCALE SQ SCH (05:44)
[2016-02-25 08:00] VITALS: BP 147/92; PULSE 80; RESP 18; TEMP 97.5; O2SAT 96
== END 2016-02-25 10:21 | disposition home or self-care (01) | DRG 603 ==
LOC: NEPE 07:51 → NEDA 10:59 → NEDH 21:23 → NEPHCDU 23:29 → N05B 02-22 17:58
PROVIDERS: ADMIT Hospitalist; ATTEND Hospitalist
DX: L03.115 Cellulitis of right lower limb (principal); L03.116 Cellulitis of left lower limb; J44.1 Chronic obstructive pulmonary disease with (acute) exacerbation; D69.59 Other secondary thrombocytopenia; K74.60 Unspecified cirrhosis of liver; I10 Essential (primary) hypertension; M79.89 Other specified soft tissue disorders; J45.909 Unspecified asthma, uncomplicated; E78.00 Pure hypercholesterolemia, unspecified; E78.5 Hyperlipidemia, unspecified; E11.9 Type 2 diabetes mellitus without complications; Z79.84 Long term (current) use of oral hypoglycemic drugs; Z87.891 Personal history of nicotine dependence; Z86.73 Personal history of transient ischemic attack (TIA), and cerebral infarction without residual deficits; F10.20 Alcohol dependence, uncomplicated
CPT/HCPCS: 71010; 80048; 80053; 80061; 80202; 82948; 83605; 85025; 85610; 85730; 87040; 93970; 94640; 94664; 96365; 96375; J1644; J2543; J2920; J3370; J7040; J7050; J7512

== ENCOUNTER 2016-11-29 16:30 | Emergency (ER) | payer OTHER, MEDICARE ==
[~2016-11-29 16:30] MED LIST changes: +CEPH500C PO; +DIPH25CA PO; -DOXY100C PO; +LACT PO; +MUCI600T PO; +PRED10PA PO; +SPIRCAP INH; +SYMB160A INH; -TRAM50TA PO
[2016-11-29 16:33] VITALS: BP 133/74; PULSE 84; RESP 18; TEMP 98; O2SAT 96
--- NOTE | 2016-11-29 17:31 | PD ---
Physical Exam Time Seen by Provider: 17:29 Narrative 66-year-old male complaining of severe abdominal pain, abdominal bloating, and blood in his stool times one and half to 2 weeks ago. History of cirrhosis. Denies fever. Reports vomiting a couple times. Reports current alcohol use. Denies anticoagulant therapy. Patient seen in triage. Vital signs reviewed. Patient awaiting bed placement. Data Data Last Documented VS Vital Signs Date Time Temp Pulse Resp B/P (MAP) Pulse Ox O2 Delivery O2 Flow Rate FiO2 11/29/16 16:33 98.0 84 18 133/74 (93) 96 MDM Supervised Visit with [facility]: Malu Blood Nov 29, 2016 17:31
[2016-11-29] MEDS ORDERED: SODIUM CHLOR 0.9% 1000 ML INJ 1,000 ML IV SCH (17:55)
[2016-11-29] MEDS ORDERED: FAMOTIDINE 20 MG/2 ML VIAL IV PUSH ONE (18:00)
[2016-11-29] MEDS ORDERED: ONDANSETRON HCL 4 MG/2 ML VIAL IV PUSH ONE (18:00)
[2016-11-29] MEDS ORDERED: PANTOPRAZOLE SODIUM 40 MG VIAL IVP ONE (18:00)
[2016-11-29] MEDS ORDERED: MORPHINE SULFATE 4 MG/ML INJ IV PUSH ONE (18:00)
[2016-11-29 18:30] VITALS: BP 127/73; PULSE 80; RESP 20; O2SAT 100
--- NOTE | 2016-11-29 18:31 | PD ---
HPI Chief Complaint: GI Complaint Time Seen by Provider: 17:50 Travel History International Travel<30 days: No Contact w/Intl Traveler<30days: No Traveled to known affect area: No History of Present Illness HPI 66-year-old male that presents to the ED for evaluation of abdominal pain. Patient has had abdominal pain for about 2 weeks now. Per patient she's been sober for some time about 2 weeks ago he started drinking again secondary to stresses secondary to money issues. Patient has a history of liver disease which per patient states is likely cirrhosis. He states that the abdominal pain is gone and the pain has become more severe the past couple days. He's had a couple of bloody stools about a week and a half ago. Not anymore. Per patient when he wipes sometimes he does see blood. He states no nausea or vomiting. Per patient pain is 8 out of 10. His been drinking today and yesterday. Per patient he feels distended as well. No leg pain or arm pain. No chest pain or shortness of breath. No nausea or vomiting. No history of paracentesis in the past. Denies taking any blood thinners. Pain per patient states mainly on the lower abdomen. PFSH Past Medical History Asthma: Yes Anxiety: Yes Depression: Yes Heart Rhythm Problems: No Cancer: No Cardiovascular Problems: Yes High Cholesterol: Yes Chest Pain: Yes Congestive Heart Failure: No COPD: Yes Cerebrovascular Accident: Yes Diabetes: Yes Endocrine: Yes Genitourinary: No Hypertension: Yes Immune Disorder: No Musculoskeletal: No Neurologic: No Psychiatric: Yes Reproductive: No Respiratory: Yes Sleep Apnea: No Thyroid Disease: No Past Surgical History Abdominal Surgery: Yes (COLOSTOMY AND REVERSAL) Cardiac Surgery: No Ear Surgery: No Endocrine Surgery: No Eye Surgery: No Genitourinary Surgery: No Oral Surgery: No Thoracic Surgery: No Tonsillectomy: Yes Other Surgery: Yes (SPLEENECTOMY) Social History Alcohol Use: Yes (1-2 BEERS DAILY) Tobacco Use: No (QUIT 2015) Substance Use: No Allergies-Medications (Allergen,Severity, Reaction): Coded Allergies: No Known Allergies (Unverified , 11/29/16) Reported Meds & Prescriptions Reported Meds & Active Scripts Active Spiriva Handihaler (Tiotropium Inh) 18 Mcg Cap 18 Mcg INH DAILY Symbicort Inh (Budesonide/Formoterol Fumarate) 160-4.5 Mcg/Act Aero 2 Puff INH Q12HR Reported Klonopin (Clonazepam) 1 Mg Tab 1 Mg PO BID [Bp Med] PO BID Metformin (Metformin HCl) 500 Mg Tab 500 Mg PO BIDPC With meals Review of Systems Except as stated in HPI: all other systems reviewed are Neg Physical Exam Narrative GENERAL: SKIN: Warm and dry. HEAD: Atraumatic. Normocephalic. EYES: Pupils equal and round. No scleral icterus. No injection or drainage. ENT: No nasal bleeding or discharge. Mucous membranes pink and moist. Tongue is midline. No uvula deviation. NECK: Trachea midline. No JVD. CARDIOVASCULAR: Regular rate and rhythm. No murmurs, S3, S4. RESPIRATORY: No accessory muscle use. Clear to auscultation. Breath sounds equal bilaterally. GASTROINTESTINAL: Abdomen soft, tender in the lower abdomen, moderately distended. Hepatic and splenic margins not palpable. MUSCULOSKELETAL: Extremities without clubbing, cyanosis, or edema. No obvious deformities. Full range of motion of the upper and lower extremities bilaterally. 2+ pulses bilaterally. NEUROLOGICAL: Awake and alert. No obvious cranial nerve deficits. Motor grossly within normal limits. Five out of 5 muscle strength in the arms and legs. Normal speech. PSYCHIATRIC: Appropriate mood and affect; insight and judgment normal. Data Data Last Documented VS Vital Signs Date Time Temp Pulse Resp B/P (MAP) Pulse Ox O2 Delivery O2 Flow Rate FiO2 11/29/16 20:13 82 139/62 (87) 99 Room Air 11/29/16 18:57 18 11/29/16 16:33 98.0 Orders Orders Complete Blood Count With Diff (11/29/16 17:55) Comprehensive Metabolic Panel (11/29/16 17:55) Lipase (11/29/16 17:55) Lactic Acid (11/29/16 17:55) Prothrombin Time / Inr (Pt) (11/29/16 17:55) Act Partial Throm Time (Ptt) (11/29/16 17:55) Urinalysis - C+S If Indicated (11/29/16 17:55) Ct Abd/Pel W Iv Contrast(Rout) (11/29/16 17:55) Iv Access Insert/Monitor (11/29/16 17:55) Ecg Monitoring (11/29/16 17:55) Oximetry (11/29/16 17:55) Morphine Inj (Morphine Inj) (11/29/16 18:00) Pantoprazole Inj (Protonix Inj) (11/29/16 18:00) Sodium Chlor 0.9% 1000 Ml Inj (Ns 1000 M (11/29/16 17:55) Famotidine Inj (Pepcid Inj) (11/29/16 18:00) Ondansetron Inj (Zofran Inj) (11/29/16 18:00) Alcohol (Ethanol) (11/29/16 17:55) Type And Screen (11/29/16 17:55) Iohexol 350 Inj (Omnipaque 350 Inj) (11/29/16 19:54) Hydromorphone Pf Inj (Dilaudid Pf Inj) (11/29/16 20:15) Urine Culture (11/29/16 20:06) Labs Laboratory Tests Test 11/29/16 18:30 11/29/16 20:06 White Blood Count 4.2 TH/MM3 Red Blood Count 3.49 MIL/MM3 Hemoglobin 12.1 GM/DL Hematocrit 35.3 % Mean Corpuscular Volume 101.2 FL Mean Corpuscular Hemoglobin 34.8 PG Mean Corpuscular Hemoglobin Concent 34.3 % Red Cell Distribution Width 15.9 % Platelet Count 90 TH/MM3 Mean Platelet Volume 10.2 FL Neutrophils (%) (Auto) 58.9 % Lymphocytes (%) (Auto) 24.8 % Monocytes (%) (Auto) 11.2 % Eosinophils (%) (Auto) 3.9 % Basophils (%) (Auto) 1.2 % Neutrophils # (Auto) 2.5 TH/MM3 Lymphocytes # (Auto) 1.0 TH/MM3 Monocytes # (Auto) 0.5 TH/MM3 Eosinophils # (Auto) 0.2 TH/MM3 Basophils # (Auto) 0.1 TH/MM3 CBC Comment AUTO DIFF Differential Comment AUTO DIFF CONFIRMED Prothrombin Time 13.4 SEC Prothromb Time International Ratio 1.2 RATIO Activated Partial Thromboplast Time 34.8 SEC Blood Urea Nitrogen 15 MG/DL Creatinine 0.81 MG/DL Random Glucose 80 MG/DL Total Protein 6.3 GM/DL Albumin 2.4 GM/DL Calcium Level 8.3 MG/DL Alkaline Phosphatase 252 U/L Aspartate Amino Transf (AST/SGOT) 116 U/L Alanine Aminotransferase (ALT/SGPT) 54 U/L Total Bilirubin 4.5 MG/DL Sodium Level 139 MEQ/L Potassium Level 4.2 MEQ/L Chloride Level 110 MEQ/L Carbon Dioxide Level 21.2 MEQ/L Anion Gap 8 MEQ/L Estimat Glomerular Filtration Rate 96 ML/MIN Lactic Acid Level 0.9 mmol/L Lipase 324 U/L Ethyl Alcohol Level LESS THAN 3 MG/DL Urine Color YELLOW Urine Turbidity CLEAR Urine pH 5.5 Urine Specific [place] 1.028 Urine Protein NEG mg/dL Urine Glucose (UA) NEG mg/dL Urine Ketones NEG mg/dL Urine Occult Blood SMALL Urine Nitrite NEG Urine Bilirubin SMALL Urine Urobilinogen 2.0 MG/DL Urine Leukocyte Esterase MOD Urine RBC LESS THAN 1 /hpf Urine WBC 27 /hpf Urine Squamous Epithelial Cells 1 /hpf Urine Bacteria FEW /hpf Urine Mucus FEW /lpf Microscopic Urinalysis Comment CULTURE INDICATED MDM Medical Decision Making Medical Screen Exam Complete: Yes Emergency Medical Condition: Yes Medical Record Reviewed: Yes Interpretation(s) CBC & BMP Diagram 11/29/16 18:30 Total Protein 6.3 L, Albumin 2.4 L, Calcium Level 8.3 L, Alkaline Phosphatase 252 H, Aspartate Amino Transf (AST/SGOT) 116 H, Alanine Aminotransferase (ALT/ SGPT) 54, Total Bilirubin 4.5 H UA shows UTI coags WNL CT abdomen shows moderate ascities, 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 alcohol negative lipase WNL Differential Diagnosis Abdominal pain versus acute abdomen versus cirrhosis versus sinusitis versus diverticulitis versus GI bleed versus gastritis versus appendicitis Narrative Course 66-year-old male that presents to the ED for evaluation of abdominal pain. Patient was properly examined and was found to have signs and symptoms consistent with appears to be abdominal pain. Unclear etiology at this time. Labs and imaging were ordered. Patient was started on IV pain medications. Labs and imaging showed ascites otherwise unremarkable. Patient does appear to have signs and symptoms consistent with liver cirrhosis. Case was discussed in my attending who was made aware of all findings and recommends discharge and outpatient treatment. Patient was told this. Patient does appear to have inflammation of his left abdomen per CT report but unclear. On physical examination he does not appear to have an area of erythema. Could be early cellulitis. At this time patient will be treated for this with tramadol, Lasix with potassium as well as Keflex. Patient was told to follow with PCP. See ED worsening symptoms. HemaPrompt Point of Care Internal Pos. & Neg. Controls: Passed Fecal Specimen Occult Blood: Positive Diagnosis Primary Impression: Liver cirrhosis Qualified Codes: K70.31 - Alcoholic cirrhosis of liver with ascites Additional Impressions: UTI (urinary tract infection) Qualified Codes: N30.01 - Acute cystitis with hematuria Abdominal pain Qualified Codes: R10.84 - Generalized abdominal pain Patient Instructions: General Instructions, Narcotic given in the ED Additional Instructions: Take medications as prescribed. Follow-up with PCP. See ED for any worsening symptoms. Do not drink or drive while taking pain medication. Apply ice or heat as needed for pain Med/Other Pt SpecificInfo: Prescription(s) given Disposition: 01 DISCHARGE HOME Condition: Xavi Johnson Nov 29, 2016 18:31
[2016-11-29 18:52] LABS: AUTOMATED NEUTROPHIL # 2.5 TH/MM3 (1.8-7.7); BASOPHIL # 0.1 TH/MM3 (0-0.2); BASOPHIL % 1.2 % (0.0-2.0); EOSINOPHIL # 0.2 TH/MM3 (0-0.4); EOSINOPHIL % 3.9 % (0.0-4.0); HEMATOCRIT 35.3 % (39.0-51.0); LYMPH % 24.8 % (9.0-44.0); MEAN CELL VOLUME 101.2 FL (80.0-100.0); MEAN CORPUSCULAR HEMOGLOBIN 34.8 PG (27.0-34.0); MEAN CORPUSCULAR HGB CONC 34.3 % (32.0-36.0); MONO % 11.2 % (0.0-8.0); NEUT % 58.9 % (16.0-70.0); PLATELET COUNT 90 TH/MM3 (150-450); RED BLOOD COUNT 3.49 MIL/MM3 (4.50-5.90); RED CELL DISTRIBUTION WIDTH 15.9 % (11.6-17.2); WHITE BLOOD COUNT 4.2 TH/MM3 (4.0-11.0)
[2016-11-29 18:57] VITALS: RESP 18
[2016-11-29 19:02] LABS: ALCOHOL LESS THAN 3 MG/DL (0-5); ANION GAP 8 MEQ/L (5-15); AST (GOT) 116 U/L (15-37); BICARBONATE 21.2 MEQ/L (21.0-32.0); BLOOD UREA NITROGEN 15 MG/DL (7-18); CHLORIDE 110 MEQ/L (98-107); GLOMERULAR FILTRATION RATE 96 ML/MIN (>89); HEMO FLAGS AUTO DIFF; POTASSIUM 4.2 MEQ/L (3.5-5.1); SODIUM (NA) 139 MEQ/L (136-145)
[2016-11-29 19:04] LABS: INTERNATIONAL NORMALIZED RATIO 1.2 RATIO; PROTHROMBIN TIME - PATIENT 13.4 SEC (9.8-11.6)
[2016-11-29 19:05] LABS: ALKALINE PHOSPHATASE 252 U/L (45-117); ALT (GPT) 54 U/L (12-78); TOTAL BILIRUBIN ADULT 4.5 MG/DL (0.2-1.0)
[2016-11-29 19:06] LABS: APTT (PATIENT) 34.8 SEC (24.3-30.1)
[2016-11-29 19:29] LABS: SCAN/DIFF AUTO DIFF CONFIRMED
[2016-11-29] MEDS ORDERED: IOHEXOL 350 MG/ML 10 ML VIAL (for RAD DIAG) IVCONTRAST ONE (19:54)
[2016-11-29] MEDS ORDERED: CLON1 PO (20:12)
[2016-11-29] MEDS ORDERED: BP MED PO (20:12)
[2016-11-29 20:13] VITALS: BP 139/62; PULSE 82; O2SAT 99
[2016-11-29] MEDS ORDERED: HYDROmorphone HCL PF 1 MG/ML VIAL IV PUSH ONE ×2 (20:15→21:15)
--- NOTE | 2016-11-29 20:26 | RADRPT ---
EXAM DATE/TIME: 11/29/2016 19:42 [facility] COMPARISON: No previous studies available for comparison. INDICATIONS : Diffuse abdomen pain today. IV CONTRAST: 93 cc Omnipaque 350 (iohexol) IV ORAL CONTRAST: No oral contrast ingested. RADIATION DOSE: 14.21 CTDIvol (mGy) MEDICAL HISTORY : Stroke. Hypertension. diabetes SURGICAL HISTORY : None. ENCOUNTER: Initial ACUITY: 1 day PAIN SCALE: 7/10 LOCATION: Bilateral abdomen TECHNIQUE: Volumetric scanning of the abdomen and pelvis was performed. Using automated exposure control and ad justment of the mA and/or kV according to patient size, radiation dose was kept as low as reasonably achievable to obtain optimal diagnostic quality images. DICOM format image data is available electro nically for review and comparison. FINDINGS: LOWER LUNGS: The visualized lower lungs are clear. LIVER: Liver is diffusely abnormal in appearance with a heterogeneous texture and nodular contour. Portal ve in is patent. There are no focal lesions or evidence of biliary duct dilatation. SPLEEN: Spleen is enlarged. PANCREAS: Within normal limits. KIDNEYS: Normal in size and shape. There is no mass, stone or hydronephrosis. ADRENAL GLANDS: Within normal limits. VASCULAR: Large serpiginous vascular channels are seen along the fundus of the stomach. A spontaneous gastroren al shunt is identified. Large vascular channels identified from the gastric varices caudally into the left renal vein. There is no aortic aneurysm. BOWEL/MESENTERY: A moderate amount of ascites is identified. There is no evidence of ileus or significant intestinal w all inflammation. ABDOMINAL WALL: Umbilical hernia with underlying air-filled loop of small bowel is noted. Focal inflammation is ident ified in the left mid abdominal wall. RETROPERITONEUM: There is no lymphadenopathy. BLADDER: No wall thickening or mass. REPRODUCTIVE: Within normal limits. INGUINAL: There is no lymphadenopathy or hernia. MUSCULOSKELETAL: Within normal limits for patient age. CONCLUSION: 1. Cirrhotic liver disease with moderate splenomegaly 2. Gastric varices with gastrorenal shunt 3. Moderate ascites 4. Periumbilical hernia 5. Left anterior mid abdominal wall inflammation or wall no evidence of significant ileus or obstruct chano gas pattern. Mikey Fuller MD on November 29, 2016 at 20:09 Board Certified Radiologist. This report was verified electronically.
[2016-11-29 20:48] LABS: BACTERIA, URINE FEW /hpf; BLOOD, URINE SMALL (NEG); COMMENT (UR) CULTURE INDICATED; CULTURE IF INDICATED CULTURE INDICATED; GLUCOSE,URINE NEG (NEG); KETONE, URINE NEG (NEG); MUCUS URINE FEW /lpf (OCC); NITRITE,URINE NEG (NEG); PH, URINE 5.5 (5.0-8.5); SQUAMOUS EPITHELIAL CELL URINE 1 /hpf (0-5); URINE COLOR YELLOW (YELLW/STRAW)
[2016-11-29] MEDS ORDERED: CEPH-460 PO (21:09)
[2016-11-29] MEDS ORDERED: TRAM50TA PO (21:09)
[2016-11-29] MEDS ORDERED: FURO1TAB62 PO (21:09)
[2016-11-29] MEDS ORDERED: POTA10CA PO (21:09)
[2016-11-29] MEDS ORDERED: FUROSEMIDE 20 MG TAB PO ONE (21:15)
[2016-11-29] MEDS ORDERED: CEPHALEXIN MONOHYDRATE 500 MG CAP PO ONE (21:15)
== END 2016-11-29 21:20 | disposition home or self-care (01) ==
LOC: NEPC 16:30
DX: K70.31 Alcoholic cirrhosis of liver with ascites (principal); N30.01 Acute cystitis with hematuria; R10.84 Generalized abdominal pain; B96.1 Klebsiella pneumoniae [K. pneumoniae] as the cause of diseases classified elsewhere; E11.9 Type 2 diabetes mellitus without complications; I10 Essential (primary) hypertension; E78.00 Pure hypercholesterolemia, unspecified; Z79.84 Long term (current) use of oral hypoglycemic drugs; Z79.899 Other long term (current) drug therapy; Z87.09 Personal history of other diseases of the respiratory system; Z86.59 Personal history of other mental and behavioral disorders; Z86.79 Personal history of other diseases of the circulatory system
CPT/HCPCS: 74177; 80053; 80307; 81001; 83605; 83690; 85025; 85610; 85730; 86850; 86900; 86901; 87077; 87086; 87186; 96361; 96374; 96375; 99285; C9113; J1170; J2270; J2405; J7030; Q9967

== ENCOUNTER 2016-11-30 08:07 | Inpatient (IN) | payer MEDICARE ==
[~2016-11-30] VITALS: Ht 180.3 cm; Wt 95.0 kg
[~2016-11-30 08:07] MED LIST changes: +BP MED PO; +CEPH-460 PO; -CEPH500C PO; +CLON1 PO; -DIPH25CA PO; +FURO1TAB62 PO; -LACT PO; -MUCI600T PO; +POTA10CA PO; -PRED10PA PO; +TRAM50TA PO
[2016-11-30 08:12] VITALS: BP 115/56; PULSE 81; RESP 16; TEMP 97.5; O2SAT 92
[2016-11-30 09:29] VITALS: BP 121/67; PULSE 73; RESP 18; TEMP 97.4; O2SAT 97
--- NOTE | 2016-11-30 09:33 | PD ---
HPI Chief Complaint: GI Complaint Time Seen by Provider: 09:33 Travel History International Travel<30 days: No Contact w/Intl Traveler<30days: No Traveled to known affect area: No History of Present Illness HPI 66-year-old male came to the emergency room with history of severe abdominal pain. Patient was in the emergency room yesterday for abdominal distention and abdominal pain. There was CT scan of his abdomen along with blood test done. CT scan showed significant ascites and some bowel loop hernia without obstruction. Patient says that he has vomited twice and the pain still continues. Patient was a chronic alcoholic but quit drinking 2 months ago as per him. He has history of esophageal varices but has not had any blood in his vomit this time. He pointed to his entire abdomen saying that everything hurts. No history of diarrhea. Vital signs are relatively stable. Patient seemed very anxious and in distress from the pain asking to give some pain medication. PFSH Past Medical History Narrative Medical List of his past medical, surgical, social and family history is reviewed from the nursing note. Asthma: Yes Anxiety: Yes Depression: Yes Heart Rhythm Problems: No Cancer: No Cardiovascular Problems: Yes High Cholesterol: Yes Chest Pain: Yes Congestive Heart Failure: No COPD: Yes Cerebrovascular Accident: Yes Diabetes: Yes Endocrine: Yes Gastrointestinal Disorders: Yes Genitourinary: No Hypertension: Yes Immune Disorder: No Implanted Vascular Access Dvce: No Musculoskeletal: No Neurologic: No Psychiatric: Yes Reproductive: No Respiratory: Yes Sleep Apnea: No Thyroid Disease: No Past Surgical History Abdominal Surgery: Yes (COLOSTOMY AND REVERSAL) Cardiac Surgery: No Ear Surgery: No Endocrine Surgery: No Eye Surgery: No Genitourinary Surgery: No Neurologic Surgery: No Oral Surgery: No Thoracic Surgery: No Tonsillectomy: Yes Other Surgery: Yes (SPLEENECTOMY) Social History Alcohol Use: Yes (1-2 BEERS DAILY) Tobacco Use: No (QUIT 2015) Substance Use: No Allergies-Medications (Allergen,Severity, Reaction): Coded Allergies: No Known Allergies (Unverified , 11/30/16) Comments No known drug allergies Reported Meds & Prescriptions Reported Meds & Active Scripts Active Potassium Chloride ER (Potassium Chloride) 10 Meq Cap 10 Meq PO DAILY 7 Days Lasix (Furosemide) 20 Mg Tab 20 Mg PO DAILY Keflex (Cephalexin) 500 Mg Cap 500 Mg PO Q8H 10 Days Tramadol (Tramadol HCl) 50 Mg Tab 50 Mg PO Q6H PRN Spiriva Handihaler (Tiotropium Inh) 18 Mcg Cap 18 Mcg INH DAILY Symbicort Inh (Budesonide/Formoterol Fumarate) 160-4.5 Mcg/Act Aero 2 Puff INH Q12HR Reported Klonopin (Clonazepam) 1 Mg Tab 1 Mg PO BID [Bp Med] PO BID Metformin (Metformin HCl) 500 Mg Tab 500 Mg PO BIDPC With meals Narrative Medication List of his home medications reviewed from the nursing note. Review of Systems Except as stated in HPI: all other systems reviewed are Neg Physical Exam Narrative GENERAL: Awake, alert, moderate distress, anxious SKIN: Focused skin assessment warm/dry. HEAD: Atraumatic. Normocephalic. EYES: Pupils equal and round. No scleral icterus. No injection or drainage. ENT: No nasal bleeding or discharge. Dry mucous membrane NECK: Trachea midline. No JVD. CARDIOVASCULAR: Regular rate and rhythm. No murmur appreciated. RESPIRATORY: No accessory muscle use. Clear to auscultation. Breath sounds equal bilaterally. GASTROINTESTINAL: Abdomen soft, non-tender, distended, diminished bowel sounds. Hepatic and splenic margins not palpable. Ascites, thrill, ventral hernia palpated MUSCULOSKELETAL: No obvious deformities. No clubbing. No cyanosis. No edema. NEUROLOGICAL: Awake and alert. No obvious cranial nerve deficits. Motor grossly within normal limits. Normal speech. PSYCHIATRIC: Appropriate mood and affect; insight and judgment normal. Data Data Last Documented VS Vital Signs Date Time Temp Pulse Resp B/P (MAP) Pulse Ox O2 Delivery O2 Flow Rate FiO2 11/30/16 09:29 97.4 73 18 121/67 (85) 97 Room Air Orders Orders Complete Blood Count With Diff (11/30/16 09:39) Comprehensive Metabolic Panel (11/30/16 09:39) Lipase (11/30/16 09:39) Prothrombin Time / Inr (Pt) (11/30/16 09:39) Urinalysis - C+S If Indicated (11/30/16 09:39) Iv Access Insert/Monitor (11/30/16 09:39) Ecg Monitoring (11/30/16 09:39) Oximetry (11/30/16 09:39) Sodium Chloride 0.9% Flush (Ns Flush) (11/30/16 09:45) Abdomen, Upright Only (11/30/16 09:39) Morphine Inj (Morphine Inj) (11/30/16 09:45) Chest, Single Ap (11/30/16 ) Urine Culture (11/30/16 11:31) Admit Order (Ed Use Only) (11/30/16 12:15) Morphine Inj (Morphine Inj) (11/30/16 12:30) Labs Laboratory Tests Test 11/30/16 09:51 11/30/16 11:31 White Blood Count 4.5 TH/MM3 Red Blood Count 3.63 MIL/MM3 Hemoglobin 12.4 GM/DL Hematocrit 36.6 % Mean Corpuscular Volume 100.8 FL Mean Corpuscular Hemoglobin 34.3 PG Mean Corpuscular Hemoglobin Concent 34.0 % Red Cell Distribution Width 15.5 % Platelet Count 68 TH/MM3 Mean Platelet Volume 9.3 FL Neutrophils (%) (Auto) 74.6 % Lymphocytes (%) (Auto) 12.7 % Monocytes (%) (Auto) 9.5 % Eosinophils (%) (Auto) 2.1 % Basophils (%) (Auto) 1.1 % Neutrophils # (Auto) 3.4 TH/MM3 Lymphocytes # (Auto) 0.6 TH/MM3 Monocytes # (Auto) 0.4 TH/MM3 Eosinophils # (Auto) 0.1 TH/MM3 Basophils # (Auto) 0.1 TH/MM3 CBC Comment AUTO DIFF Differential Comment AUTO DIFF CONFIRMED Prothrombin Time 13.1 SEC Prothromb Time International Ratio 1.2 RATIO Blood Urea Nitrogen 15 MG/DL Creatinine 0.92 MG/DL Random Glucose 107 MG/DL Total Protein 6.7 GM/DL Albumin 2.5 GM/DL Calcium Level 8.3 MG/DL Alkaline Phosphatase 209 U/L Aspartate Amino Transf (AST/SGOT) 116 U/L Alanine Aminotransferase (ALT/SGPT) 56 U/L Total Bilirubin 6.0 MG/DL Sodium Level 139 MEQ/L Potassium Level 3.8 MEQ/L Chloride Level 110 MEQ/L Carbon Dioxide Level 20.2 MEQ/L Anion Gap 9 MEQ/L Estimat Glomerular Filtration Rate 83 ML/MIN Lipase 212 U/L Urine Color DARK-YELLOW Urine Turbidity HAZY Urine pH 5.5 Urine Specific [place] 1.033 Urine Protein TRACE mg/dL Urine Glucose (UA) NEG mg/dL Urine Ketones NEG mg/dL Urine Occult Blood SMALL Urine Nitrite NEG Urine Bilirubin SMALL Urine Urobilinogen 4.0 MG/DL Urine Leukocyte Esterase LARGE Urine RBC 9 /hpf Urine WBC 141 /hpf Urine WBC Clumps FEW Urine Squamous Epithelial Cells <1 /hpf Urine Bacteria RARE /hpf Urine Hyaline Casts 4 /lpf Urine Mucus FEW /lpf Microscopic Urinalysis Comment CULTURE INDICATED MDM Medical Decision Making Medical Screen Exam Complete: Yes Emergency Medical Condition: Yes Medical Record Reviewed: Yes Differential Diagnosis Intense ascites, incarcerated hernia, SBP Narrative Course 12:19 PM blood test results are back. CBC is unchanged from yesterday. However the chemistry shows hyperbilirubinemia which is worse than yesterday. Patient does have history of cirrhosis. I intend to admit him so that he can be seen by GI as well as paracentesis done. He was medicated for pain 2. Since there was a CAT scan done yesterday just did a plain film to look for any major bowel obstruction which I did not see. Procedures EKG Prior to Arrival: No Diagnosis Primary Impression: Liver cirrhosis Qualified Codes: K70.31 - Alcoholic cirrhosis of liver with ascites Additional Impressions: Hyperbilirubinemia Intractable abdominal pain Ventral hernia Qualified Codes: K43.9 - Ventral hernia without obstruction or gangrene Admitting Information Admitting Physician Requests: it Ammon Mcdonough MD Nov 30, 2016 09:33
[2016-11-30] MEDS ORDERED: SODIUM CHLORIDE 0.9% FLUSH 10 ML FLUSH IV FLUSH PRN ×2 (09:45→12:15)
[2016-11-30] MEDS ORDERED: MORPHINE SULFATE 8 MG/ML INJ IV PUSH ONE (09:45)
[2016-11-30 10:13] LABS: AUTOMATED NEUTROPHIL # 3.4 TH/MM3 (1.8-7.7); BASOPHIL # 0.1 TH/MM3 (0-0.2); BASOPHIL % 1.1 % (0.0-2.0); EOSINOPHIL # 0.1 TH/MM3 (0-0.4); EOSINOPHIL % 2.1 % (0.0-4.0); HEMATOCRIT 36.6 % (39.0-51.0); HEMO FLAGS AUTO DIFF; LYMPH % 12.7 % (9.0-44.0); LYMPHOCYTE # 0.6 TH/MM3 (1.0-4.8); MEAN CELL VOLUME 100.8 FL (80.0-100.0); MEAN CORPUSCULAR HEMOGLOBIN 34.3 PG (27.0-34.0); MONO % 9.5 % (0.0-8.0); NEUT % 74.6 % (16.0-70.0); PLATELET COUNT 68 TH/MM3 (150-450); RED BLOOD COUNT 3.63 MIL/MM3 (4.50-5.90); RED CELL DISTRIBUTION WIDTH 15.5 % (11.6-17.2); WHITE BLOOD COUNT 4.5 TH/MM3 (4.0-11.0)
[2016-11-30 10:23] LABS: INTERNATIONAL NORMALIZED RATIO 1.2 RATIO; PROTHROMBIN TIME - PATIENT 13.1 SEC (9.8-11.6)
[2016-11-30 10:38] LABS: SCAN/DIFF AUTO DIFF CONFIRMED
[2016-11-30 10:41] LABS: ALT (GPT) 56 U/L (12-78); ANION GAP 9 MEQ/L (5-15); AST (GOT) 116 U/L (15-37); BICARBONATE 20.2 MEQ/L (21.0-32.0); BLOOD UREA NITROGEN 15 MG/DL (7-18); CHLORIDE 110 MEQ/L (98-107); GLOMERULAR FILTRATION RATE 83 ML/MIN (>89); POTASSIUM 3.8 MEQ/L (3.5-5.1); SODIUM (NA) 139 MEQ/L (136-145)
[2016-11-30 10:44] LABS: ALKALINE PHOSPHATASE 209 U/L (45-117)
--- NOTE | 2016-11-30 10:47 | RADRPT ---
EXAM DATE/TIME: 11/30/2016 10:12 [facility] COMPARISON: CHEST SINGLE AP, February 20, 2016, 8:06. INDICATIONS : Short of breath. MEDICAL HISTORY : Chronic obstructive pulmonary disease. Emphysema. Stroke. bronchitis, diabetes, hypertension SURGICAL HISTORY : None. ENCOUNTER: Initial ACUITY: 1 day PAIN SCORE: 0/10 LOCATION: Bilateral chest FINDINGS: Portable AP view of the chest demonstrates a normal-sized cardiac silhouette. Lungs are underinflated with mild atelectasis at the lung bases. No effusion or pneumothorax is identified. Bones and soft t issues demonstrate no acute finding. CONCLUSION: Mild atelectasis at the lung bases. No acute cardiopulmonary abnormality is identified. Alberto Singh MD on November 30, 2016 at 10:45 Board Certified Radiologist. This report was verified electronically.
--- NOTE | 2016-11-30 10:52 | RADRPT ---
EXAM DATE/TIME: 11/30/2016 10:06 [facility] COMPARISON: No previous studies available for comparison. INDICATIONS : Abdomen pain, bloated MEDICAL HISTORY : Stroke. Hypertension diabetes SURGICAL HISTORY : part of colon removed. ENCOUNTER: Initial ACUITY: 2 days PAIN SCORE: 10/10 LOCATION: Bilateral abdomen FINDINGS: 2 portable erect views of the upper abdomen are very limited due to the penetration of this study in conjunction with the patient's body habitus. No gross pneumoperitoneum observed. No dilated loops of bowel appreciated. Lung bases are clear. CONCLUSION: Limited exam without gross pneumoperitoneum. Eric Cruz Jr., MD on November 30, 2016 at 10:50 Board Certified Radiologist. This report was verified electronically.
[2016-11-30 12:08] LABS: BACTERIA, URINE RARE /hpf; BLOOD, URINE SMALL (NEG); COMMENT (UR) CULTURE INDICATED; CULTURE IF INDICATED CULTURE INDICATED; GLUCOSE,URINE NEG (NEG); HYALINE CAST, URINE 4 /lpf (RARE); KETONE, URINE NEG (NEG); MUCUS URINE FEW /lpf (OCC); NITRITE,URINE NEG (NEG); PH, URINE 5.5 (5.0-8.5); SQUAMOUS EPITHELIAL CELL URINE <1 /hpf (0-5); URINE COLOR DARK-YELLOW (YELLW/STRAW)
[2016-11-30] MEDS ORDERED: ACETAMINOPHEN/HYDROcodone 325 MG/10 MG TAB PO PRN (12:15)
[2016-11-30] MEDS ORDERED: NALOXONE HCL 0.4 MG/ML AMP IV PUSH PRN (12:15)
[2016-11-30] MEDS ORDERED: ACETAMINOPHEN/HYDROcodone 325 MG/5 MG TAB PO PRN (12:15)
[2016-11-30] MEDS ORDERED: ONDANSETRON HCL 4 MG/2 ML VIAL IVP PRN (12:15)
[2016-11-30] MEDS ORDERED: MAGNESIUM HYDROXIDE SUSP 30 ML CUP PO PRN (12:15)
[2016-11-30] MEDS ORDERED: MORPHINE SULFATE 4 MG/ML INJ IV PUSH ONE ×3 (12:30→14:16)
[2016-11-30] MEDS ORDERED: LORazepam 2 MG/ML VIAL IV PUSH PRN (13:00)
[2016-11-30] MEDS ORDERED: DEXTROSE 50% IN WATER 50 ML VIAL(D50) IV PUSH PRN (13:15)
[2016-11-30] MEDS ORDERED: GLUCAGON 1 MG/ML VIAL OTHER PRN (13:15)
--- NOTE | 2016-11-30 13:16 | HHI.HP ---
[facility] Primary Care Physician No Primary Care Physician Admission Diagnosis intractable abdominal pain, hyperbilirubinemia, ascites Diagnoses: (1) Liver cirrhosis Diagnosis: Principal (2) Hyperbilirubinemia Diagnosis: Principal (3) Intractable abdominal pain Diagnosis: Principal (4) Ventral hernia Diagnosis: Principal (5) Abdominal pain Diagnosis: Principal Travel History International Travel<30 Days: No Contact w/Intl Traveler <30 Da: No Traveled to Known Affected Are: No History of Present Illness Mr. Ortiz is a 66 year old male. He returns to the ER today, he was here yesterday, for abdominal pain. He's been having abdominal pain and distention recently. She attributes this to return to abusing alcohol temporarily. Since yesterday's bilirubin level has increased and he has elevated LFTs. At baseline he has cirrhosis and ascites. He's had a paracentesis in the past. Etiology for his symptoms may be related to his ascites or could represent an obstructive biliary pattern. His primary complaint is pain. He not denies any fever. Review of Systems Constitutional: COMPLAINS OF: Fatigue, DENIES: Fever, Chills, Dizziness, Change in appetite, Night Sweats Eyes: DENIES: Blurred vision, Diplopia, Eye inflammation, Eye pain Ears, nose, mouth, throat: DENIES: Tinnitus, Hearing loss, Vertigo Respiratory: DENIES: Apneas, Cough, Wheezing, Sputum production Cardiovascular: DENIES: Chest pain, Palpitations, Syncope Gastrointestinal: COMPLAINS OF: Abdominal pain, DENIES: Black stools, Bloody stools Musculoskeletal: COMPLAINS OF: Joint Swelling, DENIES: Joint pain, Muscle aches , Stiffness Integumentary: DENIES: Abnormal pigmentation, Nail changes, Pruritus, Rash Hematologic/lymphatic: DENIES: Bruising, Lymphadenopathy Immunologic/allergic: DENIES: Eczema, Urticaria Neurologic: DENIES: Abnormal gait, Headache, Paresthesias Psychiatric: DENIES: Anxiety, Confusion, Hallucinations Past Family Social History Past Medical History Asthma Gen. anxiety disorder COPD Hypertension Diabetes mellitus type 2 CVA History of chest pain Hyperlipidemia Past Surgical History Tonsillectomy Splenectomy History of colostomy History of colostomy reversal Reported Medications Reported Meds & Active Scripts Active Potassium Chloride ER (Potassium Chloride) 10 Meq Cap 10 Meq PO DAILY 7 Days Lasix (Furosemide) 20 Mg Tab 20 Mg PO DAILY Keflex (Cephalexin) 500 Mg Cap 500 Mg PO Q8H 10 Days Tramadol (Tramadol HCl) 50 Mg Tab 50 Mg PO Q6H PRN Spiriva Handihaler (Tiotropium Inh) 18 Mcg Cap 18 Mcg INH DAILY Symbicort Inh (Budesonide/Formoterol Fumarate) 160-4.5 Mcg/Act Aero 2 Puff INH Q12HR Reported Klonopin (Clonazepam) 1 Mg Tab 1 Mg PO BID [Bp Med] PO BID Metformin (Metformin HCl) 500 Mg Tab 500 Mg PO BIDPC With meals Allergies: Coded Allergies: No Known Allergies (Unverified , 11/30/16) Family History Patient denies any positive medical history in his family Social History Patient denies any illicit drug abuse history Patient was a smoker but says he quit in 2016 Patient at baseline drinks 1-2 beers per day but says he's been drinking higher amounts recently, doesn't quantify. Physical Exam Vital Signs Vital Signs Date Time Temp Pulse Resp B/P (MAP) Pulse Ox O2 Delivery O2 Flow Rate FiO2 11/30/16 09:29 97.4 73 18 121/67 (85) 97 Room Air 11/30/16 08:12 97.5 81 16 115/56 (75) 92 Physical Exam GENERAL: NAD, A&Ox3 HEAD: Normocephalic. NECK: Supple, trachea midline. No lymphadenopathy. EYES: No scleral icterus. No injection or drainage. CARDIOVASCULAR: Regular rate and rhythm without murmurs, gallops, or rubs. RESPIRATORY: Breath sounds equal bilaterally. No accessory muscle use. GASTROINTESTINAL: Abdomen soft, non-tender. Abdominal distention. MUSCULOSKELETAL: No cyanosis. Bilateral lower extremity edema SKIN: Warm and dry. Jaundice. NEURO: No focal neurological deficitis. Laboratory Laboratory Tests Test 11/30/16 09:51 11/30/16 11:31 White Blood Count 4.5 Red Blood Count 3.63 Hemoglobin 12.4 Hematocrit 36.6 Mean Corpuscular Volume 100.8 Mean Corpuscular Hemoglobin 34.3 Mean Corpuscular Hemoglobin Concent 34.0 Red Cell Distribution Width 15.5 Platelet Count 68 Mean Platelet Volume 9.3 Neutrophils (%) (Auto) 74.6 Lymphocytes (%) (Auto) 12.7 Monocytes (%) (Auto) 9.5 Eosinophils (%) (Auto) 2.1 Basophils (%) (Auto) 1.1 Neutrophils # (Auto) 3.4 Lymphocytes # (Auto) 0.6 Monocytes # (Auto) 0.4 Eosinophils # (Auto) 0.1 Basophils # (Auto) 0.1 CBC Comment AUTO DIFF Differential Comment AUTO DIFF CONFIRMED Prothrombin Time 13.1 Prothromb Time International Ratio 1.2 Blood Urea Nitrogen 15 Creatinine 0.92 Random Glucose 107 Total Protein 6.7 Albumin 2.5 Calcium Level 8.3 Alkaline Phosphatase 209 Aspartate Amino Transf (AST/SGOT) 116 Alanine Aminotransferase (ALT/SGPT) 56 Total Bilirubin 6.0 Sodium Level 139 Potassium Level 3.8 Chloride Level 110 Carbon Dioxide Level 20.2 Anion Gap 9 Estimat Glomerular Filtration Rate 83 Lipase 212 Urine Color DARK-YELLOW Urine Turbidity HAZY Urine pH 5.5 Urine Specific [place] 1.033 Urine Protein TRACE Urine Glucose (UA) NEG Urine Ketones NEG Urine Occult Blood SMALL Urine Nitrite NEG Urine Bilirubin SMALL Urine Urobilinogen 4.0 Urine Leukocyte Esterase LARGE Urine RBC 9 Urine WBC 141 Urine WBC Clumps FEW Urine Squamous Epithelial Cells <1 Urine Bacteria RARE Urine Hyaline Casts 4 Urine Mucus FEW Microscopic Urinalysis Comment CULTURE INDICATED Date/Time Source Procedure Growth Status 11/30/16 11:31 Urine Clean Catch Urine Culture Pending Received Result Diagram: 11/30/16 0951 11/30/16 0951 Imaging Last Impressions Abdomen X-Ray 11/30/16 0939 Signed Impressions: Service Date/Time: Wednesday, November 30, 2016 10:06 - CONCLUSION: Limited exam without gross pneumoperitoneum. Eric Cruz Jr., MD Chest X-Ray 11/30/16 0000 Signed Impressions: Service Date/Time: Wednesday, November 30, 2016 10:12 - CONCLUSION: Mild atelectasis at the lung bases. No acute cardiopulmonary abnormality is identified. MD Bernabe Jacoboi VTE Risk Assessment Jason VTE Risk Assessment: Mod/High Risk (score >= 2) VTE Pharm Contraindication: High risk for bleeding Caprini Risk Assessment Model Point Value = 1 Point Value = 2 Point Value = 3 Point Value = 5 Age 41-60 Minor surgery BMI > 25 kg/m2 Swollen legs Varicose veins or History of unexplained or recurrent spontaneous Oral contraceptives or hormone replacement Sepsis (< 1 month) Serious lung disease, including pneumonia (< 1 month) Abnormal pulmonary function Acute myocardial infarction Congestive heart failure (< 1 month) History of inflammatory bowel disease Medical patient at bed rest Age 61-74 Arthroscopic surgery Major open surgery (> 45 min) Laparoscopic surgery (> 45 min) Malignancy Confined to bed (> 72 hours) Immobilizing plaster cast Central venous access Age >= 75 History of VTE Family history of VTE Factor V Leiden Prothrombin [id number] Lupus anticoagulant Anticardiolipin antibodies Elevated serum homocysteine Heparin-induced thrombocytopenia Other congenital or acquired thrombophilia Stroke (< 1 month) Elective arthroplasty Hip, pelvis, or leg fracture Acute spinal cord injury (< 1 month) Prophylaxis Regimen Total Risk Factor Score Risk Level Prophylaxis Regimen 0-1 Low Early ambulation 2 Moderate Order ONE of the following: *Sequential Compression Device (SCD) *Heparin 5000 units SQ BID 3-4 Higher Order ONE of the following medications: *Heparin 5000 units SQ TID *Enoxaparin/Lovenox 40 mg SQ daily (WT < 150 kg, CrCl > 30 mL/min) *Enoxaparin/Lovenox 30 mg SQ daily (WT < 150 kg, CrCl > 10-29 mL/min) *Enoxaparin/Lovenox 30 mg SQ BID (WT < 150 kg, CrCl > 30 mL/min) AND/OR *Sequential Compression Device (SCD) 5 or more Highest Order ONE of the following medications: *Heparin 5000 units SQ TID (Preferred with Epidurals) *Enoxaparin/Lovenox 40 mg SQ daily (WT < 150 kg, CrCl > 30 mL/min) *Enoxaparin/Lovenox 30 mg SQ daily (WT < 150 kg, CrCl > 10-29 mL/min) *Enoxaparin/Lovenox 30 mg SQ BID (WT < 150 kg, CrCl > 30 mL/min) AND *Sequential Compression Device (SCD) Assessment and Plan Problem List: (1) Ventral hernia ICD Code: K43.9 - Ventral hernia without obstruction or gangrene Status: Acute (2) Intractable abdominal pain ICD Code: R10.9 - Unspecified abdominal pain Status: Acute (3) Hyperbilirubinemia ICD Code: E80.6 - Other disorders of bilirubin metabolism Status: Acute (4) Liver cirrhosis ICD Code: K74.60 - Unspecified cirrhosis of liver Status: Acute (5) Abdominal pain ICD Code: R10.9 - Unspecified abdominal pain Status: Acute (6) UTI (urinary tract infection) ICD Code: N39.0 - Urinary tract infection, site not specified Status: Acute Assessment and Plan Assessment and plan 66-year-old male admitted secondary to abdominal pain. Abdominal pain Hyperbilirubinemia Symptomatic ascites Transaminitis Consult IR for therapeutic paracentesis Obtain nuclear medicine HIDA scan to evaluate for any biliary obstruction GI consult Follow bilirubin levels Follow LFTs Hepatitis Panel ordered UTI Rocephin Follow urine cultures Probiotics History of Alcohol Abuse Thiamine Folic Acid Follow for DTs Asthma COPD No exacerbations Follow clinically Gen. anxiety disorder Ativan ordered for procedure Hypertension Continue baseline blood pressure treatments Follow blood pressures Diabetes mellitus type 2 Follow blood sugars Insulin sliding scale Diabetic diet History of CVA Follow clinically Hyperlipidemia Follows as an outpatient DVT prophylaxis SCDs, patient has increased bleed risk Physician Certification 2 Midnight Certification Type: Admission for Inpatient Services Order for Inpatient Services The services are ordered in accordance with Medicare regulations or non- Medicare payer requirements, as applicable. In the case of services not specified as inpatient-only, they are appropriately provided as inpatient services in accordance with the 2-midnight benchmark. Estimated LOS (days): 3 days is the estimated time the patient will need to remain in the hospital, assuming treatment plan goals are met and no additional complications. Post-Hospital Plan: Home Problem Qualifiers (1) Liver cirrhosis: Qualified Codes: K70.31 - Alcoholic cirrhosis of liver with ascites (2) Ventral hernia: Qualified Codes: K43.9 - Ventral hernia without obstruction or gangrene Sudhakar Woodson MD Nov 30, 2016 13:16
--- NOTE | 2016-11-30 13:58 | PD.CONS ---
HPI History of Present Illness This is a 66 year old male with hx cirrhosis, ETOH abuse, diverticulitis, who presented to the ER with worsening abd pain. He has been having abd pain for the last 2 weeks, he started "drinking again" 3 weeks ago. He also admits red blood in his stools in the last 5 to 6 days. Admits n/v, no blood. Denies fevers , weight loss, hematemesis. He had colonoscopy and EGD in 2011, says polyps were found and these procedures were done prior to getting colostomy reversal. He had colostomy and colectomy d/t [place] in [place], timing not clear and pt cannot elaborate. he says he has cirrhosis from herbicides in [place], denies heavy drinking. Admits hx hepatitis but does not know what kind. Poor historian (Ginny Cam) PFSH Past Medical History Asthma Gen. anxiety disorder COPD Hypertension Diabetes mellitus type 2 CVA History of chest pain Hyperlipidemia Past Surgical History Tonsillectomy Splenectomy History of colostomy History of colostomy reversal (Ginny Cam) Coded Allergies: No Known Allergies (Unverified , 11/30/16) Family History Patient denies any positive medical history in his family Social History 1/2 ppd Started "drinking again" but denies hx of heavy ETOH use, inconsistently (Ginny Cam) Review of Systems Constitutional: DENIES: Fever, Weight loss Eyes: DENIES: Photosensitivity Ears, nose, mouth, throat: DENIES: Hearing loss Respiratory: DENIES: Hemoptysis Gastrointestinal: COMPLAINS OF: Bloody stools, Diarrhea, Nausea, Vomiting, Swelling of Abdomen, DENIES: Black stools, Constipation, Hematemesis Genitourinary: DENIES: Hematuria Integumentary: DENIES: Rash Neurologic: DENIES: Abnormal gait Psychiatric: DENIES: Confusion (Ginny Cam) GI Exam Vitals I&O Vital Signs Date Time Temp Pulse Resp B/P (MAP) Pulse Ox O2 Delivery O2 Flow Rate FiO2 11/30/16 09:29 97.4 73 18 121/67 (85) 97 Room Air 11/30/16 08:12 97.5 81 16 115/56 (75) 92 Imaging Last Impressions Abdomen X-Ray 11/30/16 0939 Signed Impressions: Service Date/Time: Wednesday, November 30, 2016 10:06 - CONCLUSION: Limited exam without gross pneumoperitoneum. Eric Cruz Jr., MD Chest X-Ray 11/30/16 0000 Signed Impressions: Service Date/Time: Wednesday, November 30, 2016 10:12 - CONCLUSION: Mild atelectasis at the lung bases. No acute cardiopulmonary abnormality is identified. Alberto Singh MD Laboratory Test 11/30/16 09:51 11/30/16 11:31 White Blood Count 4.5 TH/MM3 Red Blood Count 3.63 MIL/MM3 Hemoglobin 12.4 GM/DL Hematocrit 36.6 % Mean Corpuscular Volume 100.8 FL Mean Corpuscular Hemoglobin 34.3 PG Mean Corpuscular Hemoglobin Concent 34.0 % Red Cell Distribution Width 15.5 % Platelet Count 68 TH/MM3 Mean Platelet Volume 9.3 FL Neutrophils (%) (Auto) 74.6 % Lymphocytes (%) (Auto) 12.7 % Monocytes (%) (Auto) 9.5 % Eosinophils (%) (Auto) 2.1 % Basophils (%) (Auto) 1.1 % Neutrophils # (Auto) 3.4 TH/MM3 Lymphocytes # (Auto) 0.6 TH/MM3 Monocytes # (Auto) 0.4 TH/MM3 Eosinophils # (Auto) 0.1 TH/MM3 Basophils # (Auto) 0.1 TH/MM3 CBC Comment AUTO DIFF Differential Comment AUTO DIFF CONFIRMED Prothrombin Time 13.1 SEC Prothromb Time International Ratio 1.2 RATIO Blood Urea Nitrogen 15 MG/DL Creatinine 0.92 MG/DL Random Glucose 107 MG/DL Total Protein 6.7 GM/DL Albumin 2.5 GM/DL Calcium Level 8.3 MG/DL Alkaline Phosphatase 209 U/L Aspartate Amino Transf (AST/SGOT) 116 U/L Alanine Aminotransferase (ALT/SGPT) 56 U/L Total Bilirubin 6.0 MG/DL Sodium Level 139 MEQ/L Potassium Level 3.8 MEQ/L Chloride Level 110 MEQ/L Carbon Dioxide Level 20.2 MEQ/L Anion Gap 9 MEQ/L Estimat Glomerular Filtration Rate 83 ML/MIN Lipase 212 U/L Urine Color DARK-YELLOW Urine Turbidity HAZY Urine pH 5.5 Urine Specific [place] 1.033 Urine Protein TRACE mg/dL Urine Glucose (UA) NEG mg/dL Urine Ketones NEG mg/dL Urine Occult Blood SMALL Urine Nitrite NEG Urine Bilirubin SMALL Urine Urobilinogen 4.0 MG/DL Urine Leukocyte Esterase LARGE Urine RBC 9 /hpf Urine WBC 141 /hpf Urine WBC Clumps FEW Urine Squamous Epithelial Cells <1 /hpf Urine Bacteria RARE /hpf Urine Hyaline Casts 4 /lpf Urine Mucus FEW /lpf Microscopic Urinalysis Comment CULTURE INDICATED Date/Time Source Procedure Growth Status 11/30/16 11:31 Urine Clean Catch Urine Culture Pending Received Physical Examination HEENT: PERRL; normocephalic; atraumatic; +icterus CHEST: cough, diminished CARDIAC: RRR ABDOMEN: semi firm, distended, diffusely TTP, dull; bowel sounds are present in all four quadrants. EXTREMITIES: No clubbing, cyanosis, pitting edema BLE SKIN: Normal; no rash; mild jaundice ADMINISTRATIVE PROFESSIONAL: No focal deficits; alert and oriented times three. (Ginny Cam) Assessment and Plan Plan ASSESSMENT - elevated LFTs, ascites - on admission AST 116, ALT 56, ALP 209, tbil 6.0, this is higher than previous admission. hx cirrhosis. Pt claims d/t herbicide exposure in [place], admits hepatitis. Admits starting "drinking again" but denies any hx of ETOH abuse. paracentesis pending. KUB unremarkable. hep panel pending. US 2016 shows cirrhosis. - blood in stool, abd pain - blood in stools last 5-6 days. pt cites distant hx diverticulitis but can offer no further details. EGD colonoscopy 2011. hx colectomy, colostomy and reversal. will get CT r/o diverticulitis - anemia - mild, hgb 12.4 PLAN - CT abd/pelvis - await hepatitis panel - await paracentesis - consider EGD +/- colonoscopy - monitor LFTs - ammonia level - monitor HH - further recs to follow This pt seen by myself and Dr Thorne and this note is written on his behalf (Ginny Cam) Physician Comments Patient seen and examined Agree with above Continue with current supportive care Monitor labs We'll plan for an EGD and a colonoscopy on Wednesday and we will prep the colon tomorrow We will also check for the alpha-fetoprotein (Jay Thorne MD) Ginny Cam Nov 30, 2016 13:58 Jay Thorne MD Nov 30, 2016 22:21
[2016-11-30] MEDS: HYDROmorphone HCL PF 1 MG/ML VIAL IV PUSH PRN (14:10)
[2016-11-30] MEDS ORDERED: DIATRIZOATE MEGLUM/DIATRIZOATE SOD 9 ML CUP PO ONE (14:35)
[2016-11-30 15:10] VITALS: BP 116/73; PULSE 82; RESP 20; TEMP 97.6; O2SAT 94
[2016-11-30] MEDS ORDERED: LIDOCAINE HCL 1% 20 ML VIAL ONE (15:45)
[2016-11-30] MEDS: cefTRIAXone INJ 1,000 MG in SODIUM CHLORIDE 0.9% INJ 100 ML IV SCH (16:04)
[2016-11-30] MEDS ORDERED: DIATRIZOATE MEGLUM/DIATRIZOATE SOD 9 ML CUP ONE (16:12)
[2016-11-30 16:16] VITALS: BP 128/68; PULSE 85; RESP 18; O2SAT 98
--- NOTE | 2016-11-30 16:43 | RADRPT ---
EXAM DATE/TIME: 11/30/2016 14:52 [facility] COMPARISON: No previous studies available for comparison. INDICATIONS : Ascites. MEDICAL HISTORY : Myocardial infarction. Hypercholesterolemia. Hypertension. COPD. Diabetes. Emphysema. Cirrhosis. ETOH . SURGICAL HISTORY : Tonsillectomy. Splenectomy. Colostomy and reversal. Paracentesis. ENCOUNTER: Initial ACUITY: 1 week PAIN SCORE: 4/10 LOCATION: Right lower quadrant FLUID: Total volume of 2500 cc of clear, yellow fluid was removed. Fluid was discarded. Paracentesis was therapeutic only. Post procedure scanning reveals no hematoma or other complication. TECHNIQUE: 1. Ultrasound guidance for abdominal paracentesis. 2. Paracentesis. The risks, benefits, and alternatives to ultrasound guided paracentesis were explained to the patient in detail including the risk of bleeding and infection. Written and verbal informed consent was obt ained. With the patient on the ultrasound table, ultrasound imaging was used to select the most appropriate approach for paracentesis. Overlying skin was prepped and draped in the usual sterile fashion and wi th a local anesthetic, a dermatotomy was made with an 11 blade scalpel. A 6 Vincentian Iim-S-[id number] ca theter was introduced into the peritoneal cavity and fluid was collected. The patient tolerated the procedure well and left the ultrasound suite in stable condition. CONCLUSION: Uncomplicated ultrasound guided paracentesis. Gagandeep Damon MD on November 30, 2016 at 16:41 Board Certified Radiologist. This report was verified electronically.
[2016-11-30] MEDS: INSULIN ASPART SUPPLEMENTAL SCALE SQ SCH ×2 (17:00→21:00)
[2016-11-30] MEDS ORDERED: IOHEXOL 350 MG/ML 10 ML VIAL (for RAD DIAG) IVCONTRAST ONE (17:43)
--- NOTE | 2016-11-30 17:48 | RADRPT ---
EXAM DATE/TIME: 11/30/2016 17:24 [facility] COMPARISON: CT ABDOMEN & PELVIS W CONTRAST, November 29, 2016, 19:42. INDICATIONS : Abdomen pain with elevated live enzymes. IV CONTRAST: 97 cc Omnipaque 350 (iohexol) IV ORAL CONTRAST: Prescribed oral contrast ingested. RADIATION DOSE: 13.06 CTDIvol (mGy) MEDICAL HISTORY : None SURGICAL HISTORY : None. ENCOUNTER: Initial ACUITY: 1 day PAIN SCALE: 7/10 LOCATION: Bilateral abdomen TECHNIQUE: Volumetric scanning of the abdomen and pelvis was performed. Using automated exposure control and ad justment of the mA and/or kV according to patient size, radiation dose was kept as low as reasonably achievable to obtain optimal diagnostic quality images. DICOM format image data is available electro nically for review and comparison. FINDINGS: LOWER LUNGS: Mild left basilar atelectasis. No effusions. No pericardial effusion. LIVER: There is a lobulated contour to the liver with a heterogeneous background. All volume ascites adjacen t to the liver. Portal vein remains patent. Large varices are seen at the GE junction. A gastrospleni c shunt is observed. No mass or ductal dilatation. The gallbladder is well-distended and contains yovany arious excretion of contrast within its lumen. SPLEEN: The spleen is just on the normal range of size. It measures 12.5 cm. No splenic lesion. Splenic vein is patent. PANCREAS: Within normal limits. KIDNEYS: Normal in size and shape. There is no mass, stone or hydronephrosis. ADRENAL GLANDS: Within normal limits. VASCULAR: There is no aortic aneurysm. BOWEL/MESENTERY: The stomach, small bowel, and colon demonstrate no acute abnormality. There is no free intraperitone al air or fluid. Surgical reyna seen involving the sigmoid colon. ABDOMINAL WALL: There is mild stranding of the subcutaneous fat throughout the abdominal wall but most pronounced wit hin the left lower quadrant and bilateral flanks. This is stable. Umbilical hernia containing omental fat. RETROPERITONEUM: There is no lymphadenopathy. BLADDER: No wall thickening or mass. REPRODUCTIVE: Within normal limits. INGUINAL: There is no lymphadenopathy or hernia. MUSCULOSKELETAL: Within normal limits for patient age. CONCLUSION: 1. Cirrhosis with small volume ascites and mild splenomegaly. 2. Mild left basilar atelectasis. 3. Edema involving the abdominal wall. No abscess or fluid collection. 4. Umbilical hernia containing fat. Eric Cruz Jr., MD on November 30, 2016 at 17:40 Board Certified Radiologist. This report was verified electronically.
[2016-11-30 20:00] VITALS: BP 126/70; PULSE 73; RESP 20; TEMP 96.6; O2SAT 96
[2016-11-30] MEDS: LACTOBACILLUS ACIDOPHILUS TAB PO SCH (20:11)
[2016-11-30] MEDS: SODIUM CHLORIDE 0.9% FLUSH 10 ML FLUSH IV FLUSH SCH (20:58)
[2016-11-30] MEDS: DOCUSATE SODIUM 50 MG/SENNA 8.6 MG TAB PO SCH (21:00)
[2016-12-01] VITALS: BP 123/76; PULSE 97; RESP 22; TEMP 97.3; O2SAT 92
[2016-12-01] MEDS: HYDROmorphone HCL PF 1 MG/ML VIAL IV PUSH PRN ×2 (00:45→07:38)
[2016-12-01 07:02] LABS: BASOPHIL # 0.1 TH/MM3 (0-0.2); BASOPHIL % 1.2 % (0.0-2.0); EOSINOPHIL # 0.2 TH/MM3 (0-0.4); EOSINOPHIL % 4.1 % (0.0-4.0); HEMATOCRIT 34.2 % (39.0-51.0); LYMPH % 18.9 % (9.0-44.0); LYMPHOCYTE # 0.8 TH/MM3 (1.0-4.8); MEAN CELL VOLUME 100.7 FL (80.0-100.0); MEAN CORPUSCULAR HEMOGLOBIN 34.4 PG (27.0-34.0); MEAN CORPUSCULAR HGB CONC 34.2 % (32.0-36.0); MONO % 8.1 % (0.0-8.0); NEUT % 67.7 % (16.0-70.0); PLATELET COUNT 63 TH/MM3 (150-450); RED BLOOD COUNT 3.39 MIL/MM3 (4.50-5.90); WHITE BLOOD COUNT 4.4 TH/MM3 (4.0-11.0)
[2016-12-01 07:08] LABS: HEMO FLAGS AUTO DIFF
[2016-12-01 07:34] LABS: ANION GAP 8 MEQ/L (5-15); AST (GOT) 112 U/L (15-37); BICARBONATE 21.6 MEQ/L (21.0-32.0); BLOOD UREA NITROGEN 18 MG/DL (7-18); CHLORIDE 108 MEQ/L (98-107); GLOMERULAR FILTRATION RATE 81 ML/MIN (>89); POTASSIUM 3.9 MEQ/L (3.5-5.1); SODIUM (NA) 138 MEQ/L (136-145)
[2016-12-01] MEDS: FOLIC ACID 1 MG TAB PO SCH (07:37)
[2016-12-01] MEDS: THIAMINE HCL 100 MG TAB PO SCH (07:37)
[2016-12-01] MEDS: DOCUSATE SODIUM 50 MG/SENNA 8.6 MG TAB PO SCH ×2 (07:38→20:25)
[2016-12-01] MEDS: LACTOBACILLUS ACIDOPHILUS TAB PO SCH ×3 (07:38→16:39)
[2016-12-01 07:39] LABS: ALKALINE PHOSPHATASE 177 U/L (45-117); ALT (GPT) 56 U/L (12-78)
[2016-12-01] MEDS: SODIUM CHLORIDE 0.9% FLUSH 10 ML FLUSH IV FLUSH SCH ×2 (07:45→20:26)
[2016-12-01] MEDS: INSULIN ASPART SUPPLEMENTAL SCALE SQ SCH ×4 (07:45→20:26)
[2016-12-01 08:00] VITALS: BP 131/76; PULSE 70; RESP 18; TEMP 96.7; O2SAT 93
[2016-12-01 08:03] LABS: SCAN/DIFF AUTO DIFF CONFIRMED
--- NOTE | 2016-12-01 08:03 | HHI.PR ---
Subjective Remarks Patient refusing HIDA scan. Discusse dwith the patien the is theodore mathur. he says he was not able to eat at all for the past 4 day s2/2 severe pain and he wanted to eat now since pain is better controlled, he agrees for HIDA scan tomorrow. Discusse dwith th epatient,will be NpO after midnight. Patient denies com, sob, n/v/d/c. Has some nonroductive cough. Says abdominal pain is better controlled. No fever ro chills. Objective Vitals Vital Signs Date Time Temp Pulse Resp B/P (MAP) Pulse Ox O2 Delivery O2 Flow Rate FiO2 12/01/16 00:00 97.3 97 22 123/76 (92) 92 11/30/16 20:00 96.6 73 20 126/70 (88) 96 11/30/16 18:05 11/30/16 16:16 85 18 128/68 (88) 98 Room Air 11/30/16 15:10 97.6 82 20 116/73 (87) 94 11/30/16 09:29 97.4 73 18 121/67 (85) 97 Room Air 11/30/16 08:12 97.5 81 16 115/56 (75) 92 I/O 11/30/16 11/30/16 11/30/16 12/01/16 12/01/16 12/01/16 07:00 15:00 23:00 07:00 15:00 23:00 Intake Total 480 ml Balance 480 ml Intake Oral 480 ml # Voids 3 Result Diagram: 12/01/16 0635 12/01/16 0635 Imaging Last Impressions Abdomen X-Ray 11/30/16 0939 Signed Impressions: Service Date/Time: Wednesday, November 30, 2016 10:06 - CONCLUSION: Limited exam without gross pneumoperitoneum. Eric Cruz Jr., MD Cyst Biopsy Asp-Paracentesis US 11/30/16 0000 Signed Impressions: Service Date/Time: Wednesday, November 30, 2016 14:52 - CONCLUSION: Uncomplicated ultrasound guided paracentesis. Gagandeep Damon MD Chest X-Ray 11/30/16 0000 Signed Impressions: Service Date/Time: Wednesday, November 30, 2016 10:12 - CONCLUSION: Mild atelectasis at the lung bases. No acute cardiopulmonary abnormality is identified. Alberto Singh MD Abdomen/Pelvis CT 11/30/16 0000 Signed Impressions: Service Date/Time: Wednesday, November 30, 2016 17:24 - CONCLUSION: 1. Cirrhosis with small volume ascites and mild splenomegaly. 2. Mild left basilar atelectasis. 3. Edema involving the abdominal wall. No abscess or fluid collection. 4. Umbilical hernia containing fat. Eric Cruz Jr., MD Objective Remarks GENERAL: Pleasant 66 yo male, well nourished well developed appears in nad. RESPIRATORY: No accessory muscle use. Clear to auscultation. Breath sounds equal bilaterally. GASTROINTESTINAL: Abdomen soft,diffuse tenderness, distended. MUSCULOSKELETAL: Extremities without clubbing, cyanosis, or edema. No obvious deformities. NEUROLOGICAL: Awake and alert. No obvious cranial nerve deficits. Motor grossly within normal limits. Five out of 5 muscle strength in the arms and legs. Normal speech. PSYCHIATRIC: Appropriate mood and affect; insight and judgment normal. A/P Problem List: (1) Ventral hernia ICD Code: K43.9 - Ventral hernia without obstruction or gangrene Status: Acute (2) Intractable abdominal pain ICD Code: R10.9 - Unspecified abdominal pain Status: Acute (3) Hyperbilirubinemia ICD Code: E80.6 - Other disorders of bilirubin metabolism Status: Acute (4) Liver cirrhosis ICD Code: K74.60 - Unspecified cirrhosis of liver Status: Acute (5) Abdominal pain ICD Code: R10.9 - Unspecified abdominal pain Status: Acute (6) UTI (urinary tract infection) ICD Code: N39.0 - Urinary tract infection, site not specified Status: Acute Assessment and Plan 66-year-old male admitted secondary to abdominal pain. Abdominal pain Hyperbilirubinemia Symptomatic ascites Transaminitis Consult IR for therapeutic paracentesis Obtain nuclear medicine HIDA scan to evaluate for any biliary obstruction , NPO after midnight GI consult Follow bilirubin levels Follow LFTs Hepatitis Panel pending IS UTI Rocephin Follow urine cultures Probiotics History of Alcohol Abuse Thiamine Folic Acid Follow for DTs Asthma COPD No exacerbations Follow clinically Gen. anxiety disorder Ativan ordered for procedure Hypertension Continue baseline blood pressure treatments Follow blood pressures Diabetes mellitus type 2 Follow blood sugars Insulin sliding scale Diabetic diet History of CVA Follow clinically Hyperlipidemia Follows as an outpatient DVT prophylaxis SCDs, patient has increased bleed risk Problem Qualifiers (1) Ventral hernia: Qualified Codes: K43.9 - Ventral hernia without obstruction or gangrene (2) Liver cirrhosis: Qualified Codes: K70.31 - Alcoholic cirrhosis of liver with ascites Mona Contreras MD Dec 01, 2016 08:03
[2016-12-01 12:00] VITALS: BP 130/76; PULSE 65; RESP 18; TEMP 96.2; O2SAT 97
[2016-12-01] MEDS: LACTULOSE SYRUP 20 GM/30 ML CUP PO SCH ×4 (13:00→20:25)
[2016-12-01] MEDS: cefTRIAXone INJ 1,000 MG in SODIUM CHLORIDE 0.9% INJ 100 ML IV SCH (13:56)
[2016-12-01 16:00] VITALS: BP 137/82; PULSE 77; RESP 18; TEMP 97.7; O2SAT 95
[2016-12-01] MEDS: HYDROmorphone HCL PF 2 MG/ML VIAL IV PUSH PRN ×2 (16:39→23:17)
[2016-12-01 20:00] VITALS: BP 127/71; PULSE 79; RESP 17; TEMP 96.4; O2SAT 94
--- NOTE | 2016-12-01 22:19 | HHI.GIFU ---
Subjective Remarks Laying in bed states he has an important appointment in [place] on and is insisting on leaving for that appointment Objective Vitals I&O Vital Signs Date Time Temp Pulse Resp B/P (MAP) Pulse Ox O2 Delivery O2 Flow Rate FiO2 12/01/16 16:00 97.7 77 18 137/82 (100) 95 12/01/16 12:00 96.2 65 18 130/76 (94) 97 12/01/16 08:00 96.7 70 18 131/76 (94) 93 12/01/16 00:00 97.3 97 22 123/76 (92) 92 I/O 11/30/16 11/30/16 11/30/16 12/01/16 12/01/16 12/01/16 07:00 15:00 23:00 07:00 15:00 23:00 Intake Total 480 ml 1680 ml Balance 480 ml 1680 ml Intake Oral 480 ml 1680 ml # Voids 3 5 # Bowel Movements 0 Laboratory Laboratory Tests Test 12/01/16 06:35 White Blood Count 4.4 Red Blood Count 3.39 Hemoglobin 11.7 Hematocrit 34.2 Mean Corpuscular Volume 100.7 Mean Corpuscular Hemoglobin 34.4 Mean Corpuscular Hemoglobin Concent 34.2 Red Cell Distribution Width 16.0 Platelet Count 63 Mean Platelet Volume 9.2 Neutrophils (%) (Auto) 67.7 Lymphocytes (%) (Auto) 18.9 Monocytes (%) (Auto) 8.1 Eosinophils (%) (Auto) 4.1 Basophils (%) (Auto) 1.2 Neutrophils # (Auto) 3.0 Lymphocytes # (Auto) 0.8 Monocytes # (Auto) 0.4 Eosinophils # (Auto) 0.2 Basophils # (Auto) 0.1 CBC Comment AUTO DIFF Differential Comment AUTO DIFF CONFIRMED Blood Urea Nitrogen 18 Creatinine 0.94 Random Glucose 108 Total Protein 6.0 Albumin 2.3 Calcium Level 8.1 Alkaline Phosphatase 177 Aspartate Amino Transf (AST/SGOT) 112 Alanine Aminotransferase (ALT/SGPT) 56 Total Bilirubin 5.0 Sodium Level 138 Potassium Level 3.9 Chloride Level 108 Carbon Dioxide Level 21.6 Anion Gap 8 Estimat Glomerular Filtration Rate 81 Ammonia 75 Tumor Marker Alpha Fetoprotein 171.1 Hepatitis A IgM Antibody NEGATIVE Hepatitis B Surface Antigen POSITIVE Hepatitis B Core IgM Antibody NEGATIVE Hepatitis C Antibody NEGATIVE Date/Time Source Procedure Growth Status 11/30/16 11:31 Urine Clean Catch Urine Culture - Preliminary IMMATURE GROWTH - REINCUBATE Resulted Imaging Last 48 hours Impressions Abdomen X-Ray 11/30/16 0939 Signed Impressions: Service Date/Time: Wednesday, November 30, 2016 10:06 - CONCLUSION: Limited exam without gross pneumoperitoneum. Eric Cruz Jr., MD Cyst Biopsy Asp-Paracentesis US 11/30/16 0000 Signed Impressions: Service Date/Time: Wednesday, November 30, 2016 14:52 - CONCLUSION: Uncomplicated ultrasound guided paracentesis. Gagandeep Damon MD Chest X-Ray 11/30/16 0000 Signed Impressions: Service Date/Time: Wednesday, November 30, 2016 10:12 - CONCLUSION: Mild atelectasis at the lung bases. No acute cardiopulmonary abnormality is identified. Alberto Singh MD Abdomen/Pelvis CT 11/30/16 0000 Signed Impressions: Service Date/Time: Wednesday, November 30, 2016 17:24 - CONCLUSION: 1. Cirrhosis with small volume ascites and mild splenomegaly. 2. Mild left basilar atelectasis. 3. Edema involving the abdominal wall. No abscess or fluid collection. 4. Umbilical hernia containing fat. Eric Cruz Jr., MD Physical Exam HEENT: normocephalic; atraumatic; no jaundice. Throat is clear. NECK: Neck is supple, no JVD, CHEST: Chest is clear to auscultation and percussion. CARDIAC: Regular rate and rhythm with no murmur gallop or rubs. ABDOMEN: Soft, nondistended, nontender; no hepatosplenomegaly; bowel sounds are present in all four quadrants. EXTREMITIES: No clubbing, cyanosis, or edema. SKIN: Normal; no rash; no jaundice. 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 Assessment and Plan Plan ASSESSMENT - elevated LFTs consistent with alcohol injury, acute alcoholic hepatitis, ascites - on admission AST 116, ALT 56, ALP 209, tbil 6.0, this is higher than previous admission. hx cirrhosis. Pt claims d/t herbicide exposure in [place], admits hepatitis. Admits starting "drinking again" but denies any hx of ETOH abuse. paracentesis pending. KUB unremarkable. hep panel pending. US 2016 shows cirrhosis. - blood in stool, abd pain - blood in stools last 5-6 days. pt cites distant hx diverticulitis but can offer no further details. EGD colonoscopy 2011. hx colectomy, colostomy and reversal. will get CT r/o diverticulitis - anemia - mild, hgb 12.4 Elevated alpha-fetoprotein Hepatitis B surface antigen positive PLAN -We will obtain MRI of the abdomen to further evaluate for hepatocellular carcinoma -Patient with what appears to be chronic hepatitis B we'll check the DNA - await paracentesis - consider EGD +/- colonoscopy but patient is not wanting to pursue that at this point - monitor LFTs - ammonia level slightly elevated patient will need to be on lactulose and Xifaxan - monitor HH - further recs to follow Jay Thorne MD Dec 01, 2016 22:19
[2016-12-01] MEDS: RIFAXIMIN 550 MG TAB PO SCH (23:19)
[2016-12-02] VITALS: BP 137/65; PULSE 86; RESP 17; TEMP 97.4; O2SAT 96
[2016-12-02 07:13] LABS: AUTOMATED NEUTROPHIL # 2.4 TH/MM3 (1.8-7.7); BASOPHIL # 0.1 TH/MM3 (0-0.2); BASOPHIL % 2.6 % (0.0-2.0); EOSINOPHIL # 0.2 TH/MM3 (0-0.4); EOSINOPHIL % 4.4 % (0.0-4.0); HEMATOCRIT 33.2 % (39.0-51.0); LYMPH % 23.9 % (9.0-44.0); MEAN CORPUSCULAR HEMOGLOBIN 34.9 PG (27.0-34.0); MEAN CORPUSCULAR HGB CONC 34.2 % (32.0-36.0); MONO % 10.7 % (0.0-8.0); NEUT % 58.4 % (16.0-70.0); PLATELET COUNT 56 TH/MM3 (150-450); RED BLOOD COUNT 3.26 MIL/MM3 (4.50-5.90); WHITE BLOOD COUNT 4.1 TH/MM3 (4.0-11.0)
[2016-12-02 07:19] LABS: HEMO FLAGS AUTO DIFF
[2016-12-02 07:22] LABS: ALT (GPT) 64 U/L (12-78); ANION GAP 5 MEQ/L (5-15); AST (GOT) 125 U/L (15-37); BICARBONATE 24.6 MEQ/L (21.0-32.0); BLOOD UREA NITROGEN 17 MG/DL (7-18); CHLORIDE 110 MEQ/L (98-107); GLOMERULAR FILTRATION RATE 81 ML/MIN (>89); POTASSIUM 4.3 MEQ/L (3.5-5.1); SODIUM (NA) 140 MEQ/L (136-145)
[2016-12-02 07:24] LABS: ALKALINE PHOSPHATASE 169 U/L (45-117)
[2016-12-02] MEDS: INSULIN ASPART SUPPLEMENTAL SCALE SQ SCH ×4 (07:39→19:55)
[2016-12-02 08:00] VITALS: BP 130/73; PULSE 98; RESP 17; TEMP 97; O2SAT 92
[2016-12-02 08:41] LABS: PLATELET ESTIMATE SMEAR LOW (NORMAL); PLATELET MORPHOLOGY NORMAL (NORMAL); SCAN/DIFF AUTO DIFF CONFIRMED
[2016-12-02] MEDS: THIAMINE HCL 100 MG TAB PO SCH (09:00)
--- NOTE | 2016-12-02 11:13 | RADRPT ---
EXAM DATE/TIME: 12/02/2016 07:55 [facility] COMPARISON: CT ABDOMEN & PELVIS W CONTRAST, November 30, 2016, 17:24. INDICATIONS : Abdominal pain, nausea and vomiting. DOSE: 4.1 mCi Tc99m Mebrofenin IV MEDICAL HISTORY : Chronic obstructive pulmonary disease. SURGICAL HISTORY : Colon resection. ENCOUNTER: Initial ACUITY: 1 day PAIN SCALE: 1/10 LOCATION: Right upper quadrant TECHNIQUE: Following the intravenous administration of radiotracer, dynamic sequential images were performed wit h continuous acquisition. FINDINGS: HEPATIC KINETICS: Very poor uptake of radiotracer in the hepatic parenchyma with a large amount of background activity on the first 20 minutes of images characteristic of poor hepatic function. Limited washout as well a. BILIARY CLEARANCE: Activity is first seen in the extrahepatic biliary system at 50 minutes. There is normal excretion i nto the small bowel. GALLBLADDER: Nonvisualization of the gallbladder BILIARY ENTRIC REFLUX: None observed. CONCLUSION: 1. Poor hepatic uptake with enlargement of background activity on the earlier images characteristic o f limited biliary function. Prior CT shows findings characteristic of hepatic cirrhosis. 2. Similarly, limited washout and tracer excretion. 3. Nonvisualization of the gallbladder. In the appropriate clinical setting, findings could represent acute cholecystitis. Damion Mejia MD on December 02, 2016 at 11:08 Board Certified Radiologist. This report was verified electronically.
[2016-12-02] MEDS ORDERED: GADODIAMIDE PF 287 MG/ML 20 ML VIAL (for RAD MRI) IVCONTRAST ONE (11:24)
[2016-12-02 12:00] VITALS: BP 126/84; PULSE 95; RESP 18; TEMP 96.6; O2SAT 96
--- NOTE | 2016-12-02 12:04 | RADRPT ---
EXAM DATE/TIME: 12/02/2016 10:32 [facility] COMPARISON: BILIARY SCAN (HIDA), December 02, 2016, 7:55. CT ABDOMEN & PELVIS W CONTRAST, November 30, 2016, 17:24 . INDICATIONS : Cirrhosis. CONTRAST: 19 cc Omniscan (gadodiamide) IV MEDICAL HISTORY : Renal insufficiency. Hypertension. Cirrhosis. DIABETES SURGICAL HISTORY : Colon resection. ENCOUNTER: Subsequent ACUITY: 3 day PAIN SCORE: 6/10 LOCATION: ABDOMEN TECHNIQUE: Multiplanar, multisequence magnetic resonance imaging of the abdomen was performed without and with i ntravenous contrast. FINDINGS: LIVER: The liver measures 13.5 cm. It demonstrates a nodular contour with right lobe atrophy. There are no T 2 hyperintense lesions or concerning lesions with increased diffusion signal. There is slight increas ed enhancement on the arterial phase within segment 4 but no abnormality is identified in this area o n any additional sequence. No concerning enhancing lesion is seen. There is heterogeneous enhancement at the liver dome. Portal vein is patent. Hepatic vasculature demonstrates no acute abnormality. BILIARY: There is no intra- or extra-hepatic biliary ductal dilatation. Gallbladder contains no stones. There is diffuse gallbladder wall edema. SPLEEN: Enlarged measuring 17.4 cm. PANCREAS: Within normal limits. ADRENALS: Not well seen but none no abnormality is appreciated. KIDNEYS: Normal size and signal intensity. There is no hydronephrosis or mass. There are bilateral renal cyst s. OTHER: Aorta is nonaneurysmal. There is no lymphadenopathy. There are large gastric varices and a splenorena l shunt is present. A small volume of free fluid is present within the abdomen. CONCLUSION: 1. Liver features diagnostic of a cirrhosis. No suspicious enhancing liver lesion is identified. 2. There are findings associated with chronic liver disease and portal hypertension including small v olume ascites, splenomegaly, and large gastric varices. Alberto Singh MD on December 02, 2016 at 11:15 Board Certified Radiologist. This report was verified electronically.
[2016-12-02] MEDS: RIFAXIMIN 550 MG TAB PO SCH ×2 (12:25→19:55)
[2016-12-02] MEDS: FOLIC ACID 1 MG TAB PO SCH (12:25)
[2016-12-02] MEDS: LACTOBACILLUS ACIDOPHILUS TAB PO SCH ×3 (12:26→18:00)
[2016-12-02] MEDS: DOCUSATE SODIUM 50 MG/SENNA 8.6 MG TAB PO SCH ×2 (12:27→19:54)
[2016-12-02] MEDS: LACTULOSE SYRUP 20 GM/30 ML CUP PO SCH ×4 (12:29→19:55)
[2016-12-02] MEDS: SODIUM CHLORIDE 0.9% FLUSH 10 ML FLUSH IV FLUSH SCH ×2 (12:33→19:55)
--- NOTE | 2016-12-02 13:41 | HHI.PR ---
Subjective Remarks Went for HIDA, seen there after. Patient in nad. Says he is still with nausea, did not vomit. No chest pain . No sob he has copd. No fever or chills. Objective Vitals Vital Signs Date Time Temp Pulse Resp B/P (MAP) Pulse Ox O2 Delivery O2 Flow Rate FiO2 12/02/16 08:00 97.0 98 17 130/73 (92) 92 12/02/16 00:00 97.4 86 17 137/65 (89) 96 12/01/16 20:00 96.4 79 17 127/71 (89) 94 12/01/16 16:00 97.7 77 18 137/82 (100) 95 I/O 12/01/16 12/01/16 12/01/16 12/02/16 12/02/16 12/02/16 07:00 15:00 23:00 07:00 15:00 23:00 Intake Total 480 ml 1680 ml 0 ml Balance 480 ml 1680 ml 0 ml Intake Oral 480 ml 1680 ml 0 ml # Voids 3 5 3 # Bowel Movements 0 1 Result Diagram: 12/02/1622 12/02/16621 Imaging Last Impressions Hepatobiliary Scan Nuclear Medicine 12/02/16 0600 Signed Impressions: Service Date/Time: Friday, December 02, 2016 07:55 - CONCLUSION: 1. Poor hepatic uptake with enlargement of background activity on the earlier images characteristic of limited biliary function. Prior CT shows findings characteristic of hepatic cirrhosis. 2. Similarly, limited washout and tracer excretion. 3. Nonvisualization of the gallbladder. In the appropriate clinical setting, findings could represent acute cholecystitis. Damion Mejia MD Abdomen MRI 12/02/16 0000 Signed Impressions: Service Date/Time: Friday, December 02, 2016 10:32 - CONCLUSION: 1. Liver features diagnostic of a cirrhosis. No suspicious enhancing liver lesion is identified. 2. There are findings associated with chronic liver disease and portal hypertension including small volume ascites, splenomegaly, and large gastric varices. Alberto Singh MD Abdomen X-Ray 11/30/16 0939 Signed Impressions: Service Date/Time: Wednesday, November 30, 2016 10:06 - CONCLUSION: Limited exam without gross pneumoperitoneum. Eric Cruz Jr., MD Cyst Biopsy Asp-Paracentesis US 11/30/16 0000 Signed Impressions: Service Date/Time: Wednesday, November 30, 2016 14:52 - CONCLUSION: Uncomplicated ultrasound guided paracentesis. Gagandeep Damon MD Chest X-Ray 11/30/16 0000 Signed Impressions: Service Date/Time: Wednesday, November 30, 2016 10:12 - CONCLUSION: Mild atelectasis at the lung bases. No acute cardiopulmonary abnormality is identified. Alberto Singh MD Abdomen/Pelvis CT 11/30/16 0000 Signed Impressions: Service Date/Time: Wednesday, November 30, 2016 17:24 - CONCLUSION: 1. Cirrhosis with small volume ascites and mild splenomegaly. 2. Mild left basilar atelectasis. 3. Edema involving the abdominal wall. No abscess or fluid collection. 4. Umbilical hernia containing fat. Eric Cruz Jr., MD Objective Remarks GENERAL: Pleasant 66 yo male, well nourished well developed appears in nad. RESPIRATORY: No accessory muscle use. Clear to auscultation. Breath sounds equal bilaterally. GASTROINTESTINAL: Abdomen soft,diffuse tenderness, distended. MUSCULOSKELETAL: Extremities without clubbing, cyanosis, or edema. No obvious deformities. NEUROLOGICAL: Awake and alert. No obvious cranial nerve deficits. Motor grossly within normal limits. Five out of 5 muscle strength in the arms and legs. Normal speech. PSYCHIATRIC: Appropriate mood and affect; insight and judgment normal. A/P Problem List: (1) Ventral hernia ICD Code: K43.9 - Ventral hernia without obstruction or gangrene Status: Acute (2) Intractable abdominal pain ICD Code: R10.9 - Unspecified abdominal pain Status: Acute (3) Hyperbilirubinemia ICD Code: E80.6 - Other disorders of bilirubin metabolism Status: Acute (4) Liver cirrhosis ICD Code: K74.60 - Unspecified cirrhosis of liver Status: Acute (5) Abdominal pain ICD Code: R10.9 - Unspecified abdominal pain Status: Acute (6) UTI (urinary tract infection) ICD Code: N39.0 - Urinary tract infection, site not specified Status: Acute Assessment and Plan 66-year-old male admitted secondary to abdominal pain. Abdominal pain Hyperbilirubinemia Symptomatic ascites Transaminitis Consult IR for therapeutic paracentesis Obtain nuclear medicine HIDA scan to evaluate for any biliary obstruction , NPO after midnight GI consult Follow bilirubin levels Follow LFTs Hepatitis Panel pending IS Plan for EGD 12/03/16 UTI Rocephin Follow urine cultures Probiotics History of Alcohol Abuse Thiamine Folic Acid Follow for DTs Asthma COPD No exacerbations Follow clinically Gen. anxiety disorder Ativan ordered for procedure Hypertension Continue baseline blood pressure treatments Follow blood pressures Diabetes mellitus type 2 Follow blood sugars Insulin sliding scale Diabetic diet History of CVA Follow clinically Hyperlipidemia Follows as an outpatient DVT prophylaxis SCDs, patient has increased bleed risk Problem Qualifiers (1) Ventral hernia: Qualified Codes: K43.9 - Ventral hernia without obstruction or gangrene (2) Liver cirrhosis: Qualified Codes: K70.31 - Alcoholic cirrhosis of liver with ascites Mona Contreras MD Dec 02, 2016 13:41
[2016-12-02] MEDS: cefTRIAXone INJ 1,000 MG in SODIUM CHLORIDE 0.9% INJ 100 ML IV SCH (15:05)
[2016-12-02] MEDS: HYDROmorphone HCL PF 2 MG/ML VIAL IV PUSH PRN ×2 (15:05→23:12)
[2016-12-02 16:00] VITALS: BP 114/53; PULSE 81; RESP 19; TEMP 97.4; O2SAT 96
--- NOTE | 2016-12-02 16:47 | HHI.GIFU ---
Subjective Remarks Resting in bed. Pt states that he has postponed his appointment and plans on leaving to go to [place] Wednesday night. He is having some abdominal discomfort. He is agreeable to EGD/Colonoscopy as long as it can be done first thing in am. (Jesica Claros) Objective Vitals I&O Vital Signs Date Time Temp Pulse Resp B/P (MAP) Pulse Ox O2 Delivery O2 Flow Rate FiO2 12/02/16 16:00 97.4 81 19 114/53 (73) 96 12/02/16 12:00 96.6 95 18 126/84 (98) 96 12/02/16 08:00 97.0 98 17 130/73 (92) 92 12/02/16 00:00 97.4 86 17 137/65 (89) 96 12/01/16 20:00 96.4 79 17 127/71 (89) 94 I/O 12/01/16 12/01/16 12/01/16 12/02/16 12/02/16 12/02/16 07:00 15:00 23:00 07:00 15:00 23:00 Intake Total 480 ml 1680 ml 0 ml Balance 480 ml 1680 ml 0 ml Intake Oral 480 ml 1680 ml 0 ml # Voids 3 5 3 # Bowel Movements 0 1 Laboratory Laboratory Tests Test 12/02/16 06:22 White Blood Count 4.1 Red Blood Count 3.26 Hemoglobin 11.4 Hematocrit 33.2 Mean Corpuscular Volume 102.0 Mean Corpuscular Hemoglobin 34.9 Mean Corpuscular Hemoglobin Concent 34.2 Red Cell Distribution Width 16.0 Platelet Count 56 Mean Platelet Volume 9.1 Neutrophils (%) (Auto) 58.4 Lymphocytes (%) (Auto) 23.9 Monocytes (%) (Auto) 10.7 Eosinophils (%) (Auto) 4.4 Basophils (%) (Auto) 2.6 Neutrophils # (Auto) 2.4 Lymphocytes # (Auto) 1.0 Monocytes # (Auto) 0.4 Eosinophils # (Auto) 0.2 Basophils # (Auto) 0.1 CBC Comment AUTO DIFF Differential Comment AUTO DIFF CONFIRMED Platelet Estimate LOW Platelet Morphology Comment NORMAL Blood Urea Nitrogen 17 Creatinine 0.94 Random Glucose 89 Total Protein 6.0 Albumin 2.2 Calcium Level 8.0 Alkaline Phosphatase 169 Aspartate Amino Transf (AST/SGOT) 125 Alanine Aminotransferase (ALT/SGPT) 64 Total Bilirubin 5.0 Sodium Level 140 Potassium Level 4.3 Chloride Level 110 Carbon Dioxide Level 24.6 Anion Gap 5 Estimat Glomerular Filtration Rate 81 Ammonia 62 Date/Time Source Procedure Growth Status 11/30/16 11:31 Urine Clean Catch Urine Culture - Final 10-50,000 CFU/ML MIXED AMADA... Complete Imaging Last Impressions Hepatobiliary Scan Nuclear Medicine 12/02/16 0600 Signed Impressions: Service Date/Time: Friday, December 02, 2016 07:55 - CONCLUSION: 1. Poor hepatic uptake with enlargement of background activity on the earlier images characteristic of limited biliary function. Prior CT shows findings characteristic of hepatic cirrhosis. 2. Similarly, limited washout and tracer excretion. 3. Nonvisualization of the gallbladder. In the appropriate clinical setting, findings could represent acute cholecystitis. Damion Mejia MD Abdomen MRI 12/02/16 0000 Signed Impressions: Service Date/Time: Friday, December 02, 2016 10:32 - CONCLUSION: 1. Liver features diagnostic of a cirrhosis. No suspicious enhancing liver lesion is identified. 2. There are findings associated with chronic liver disease and portal hypertension including small volume ascites, splenomegaly, and large gastric varices. Alberto Singh MD Abdomen X-Ray 11/30/16 0939 Signed Impressions: Service Date/Time: Wednesday, November 30, 2016 10:06 - CONCLUSION: Limited exam without gross pneumoperitoneum. Eric Cruz Jr., MD Cyst Biopsy Asp-Paracentesis US 11/30/16 0000 Signed Impressions: Service Date/Time: Wednesday, November 30, 2016 14:52 - CONCLUSION: Uncomplicated ultrasound guided paracentesis. Gagandeep Damon MD Chest X-Ray 11/30/16 0000 Signed Impressions: Service Date/Time: Wednesday, November 30, 2016 10:12 - CONCLUSION: Mild atelectasis at the lung bases. No acute cardiopulmonary abnormality is identified. Alberto Singh MD Abdomen/Pelvis CT 11/30/16 0000 Signed Impressions: Service Date/Time: Wednesday, November 30, 2016 17:24 - CONCLUSION: 1. Cirrhosis with small volume ascites and mild splenomegaly. 2. Mild left basilar atelectasis. 3. Edema involving the abdominal wall. No abscess or fluid collection. 4. Umbilical hernia containing fat. Eric Cruz Jr., MD Physical Exam HEENT: Normocephalic; atraumatic; no jaundice. CHEST: CTA CARDIAC: RRR ABDOMEN: Soft, distended with ascites, nontender; hepatosplenomegaly; bowel sounds are present in all four quadrants. EXTREMITIES: BLE edema. SKIN: Normal; no rash; no jaundice. 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 (Jesica Claros [facility]) Assessment and Plan Plan ASSESSMENT - Elevated LFTs/Liver cirrhosis/Acute alcoholic hepatitis. Hx cirrhosis, pt states from herbicide exposure in [place], admits hepatitis. Admits starting "drinking again" but denies any hx of ETOH abuse. CT Scan abdomen and pelvis (11/30/16)---> Cirrhosis with small volume ascites and mild splenomegaly. Mild left basilar atelectasis, edema involving the abdominal wall. No abscess or fluid collection, umbilical hernia containing fat. MRI with and without contrast ( 12/02/16)---> Liver features diagnostic of a cirrhosis. No suspicious enhancing liver lesion is identified. There are findings associated with chronic liver disease and portal htn including small volume ascites, splenomegaly, and large gastric varices. HIDA Scan ()---> Poor hepatic uptake with enlargement of background activity on the earlier images characteristic of limited biliary function. Prior CT shows findings characteristic of hepatic cirrhosis, similarly, limited washout and tracer excretion. Nonvisualization of the gallbladder. In the appropriate clinical setting, findings could represent acute cholecystitis. Delayed imaging tomorrow. LFTs remain elevated with T. Bili 5.0, AST 125, ALT 64, Alk Phosph 169. Hepatitis B Surface antigen positive, but IgM ab negative. DNA viral load pending. Hep Be ag pending. - Hepatitis B. IgM negative. DNA and Be ag pending. - Elevated AFP. MRI did not appreciate any masses. AFP 171.1. - Abdominal pain. HIDA as above, likely related to hepatocellular disfunction. Delayed imaging in am - Blood in stool. - Blood in stool. H of diverticulitis requiring colectomy, colostomy and reversal. Last EGD colonoscopy 2011. Plan for egd/colonoscopy in am. - Anemia - mild, H/H 11.4/33.2. - Thrombocytopenia. Plt 56. - Ascites. S/P paracentesis, 2,500cc removed. Not sent for fluid analysis Ceftriaxone. Add lasix, spironolactone. - Hepatic encephalopathy. Xifaxan, lactulose. PLAN - Plan for egd +/- band ligation, colonoscopy in am - Obtain consents - Clear liquids - NPO after MN - Golytely prep - Cont. Xifaxan, Lactulose - Add PPI - Add Spironolactone, Lasix - CBC, CMP in am - Await Hep Be Ag - Await Hep B DNA PCR - Further recommendations to follow based on results of above - Pt seen and examined by Dr. Thorne and myself and this note is written on his behalf (Jesica Claros) Physician Comments Patient seen and examined Agree with above Continue with current supportive care Monitor labs Plan for an EGD and a colonoscopy tomorrow (Jay Thorne MD) Jesica Claros Dec 02, 2016 16:47 Jay Thorne MD Dec 02, 2016 23:00
[2016-12-02] MEDS ORDERED: PEG (High)/E-LYTE SOLN 4000 ML BTL PO ONE (17:00)
[2016-12-02 20:00] VITALS: BP 134/75; PULSE 88; RESP 17; TEMP 97.5; O2SAT 97
[2016-12-03] VITALS: BP 128/74; PULSE 81; RESP 17; TEMP 97.2; O2SAT 97
[2016-12-03] MEDS ORDERED: SODIUM CHLORID 0.9% 500 ML IV PRN (04:00)
[2016-12-03] MEDS: HYDROmorphone HCL PF 2 MG/ML VIAL IV PUSH PRN (04:48)
[2016-12-03 06:57] LABS: AUTOMATED NEUTROPHIL # 1.8 TH/MM3 (1.8-7.7); BASOPHIL % 1.2 % (0.0-2.0); EOSINOPHIL # 0.2 TH/MM3 (0-0.4); EOSINOPHIL % 5.4 % (0.0-4.0); HEMATOCRIT 31.9 % (39.0-51.0); LYMPHOCYTE # 0.8 TH/MM3 (1.0-4.8); MEAN CELL VOLUME 100.8 FL (80.0-100.0); MEAN CORPUSCULAR HEMOGLOBIN 34.7 PG (27.0-34.0); MEAN CORPUSCULAR HGB CONC 34.4 % (32.0-36.0); MONO % 12.9 % (0.0-8.0); NEUT % 55.5 % (16.0-70.0); PLATELET COUNT 56 TH/MM3 (150-450); RED BLOOD COUNT 3.17 MIL/MM3 (4.50-5.90); RED CELL DISTRIBUTION WIDTH 16.1 % (11.6-17.2); WHITE BLOOD COUNT 3.3 TH/MM3 (4.0-11.0)
[2016-12-03 06:59] LABS: HEMO FLAGS AUTO DIFF
[2016-12-03 07:19] LABS: ALT (GPT) 67 U/L (12-78); ANION GAP 6 MEQ/L (5-15); AST (GOT) 134 U/L (15-37); BICARBONATE 24.7 MEQ/L (21.0-32.0); BLOOD UREA NITROGEN 16 MG/DL (7-18); CHLORIDE 109 MEQ/L (98-107); GLOMERULAR FILTRATION RATE 106 ML/MIN (>89); POTASSIUM 3.9 MEQ/L (3.5-5.1); SODIUM (NA) 140 MEQ/L (136-145)
[2016-12-03 07:21] LABS: ALKALINE PHOSPHATASE 156 U/L (45-117); TOTAL BILIRUBIN ADULT 4.8 MG/DL (0.2-1.0)
[2016-12-03] MEDS: INSULIN ASPART SUPPLEMENTAL SCALE SQ SCH ×2 (07:42→11:26)
[2016-12-03 07:43] LABS: PLATELET ESTIMATE SMEAR LOW (NORMAL); PLATELET MORPHOLOGY NORMAL (NORMAL)
[2016-12-03 07:44] LABS: SCAN/DIFF AUTO DIFF CONFIRMED
[2016-12-03 08:00] VITALS: BP 110/64; PULSE 85; RESP 16; TEMP 97; O2SAT 93
--- NOTE | 2016-12-03 08:26 | HHI.PR ---
Subjective Remarks Feels better returnned from egd , eating no n/v/d/c. pain is controlled. Discussued with the patient at length regarding EtOH cessation however patient seems will not cut down and quit etih. Objective Vitals Vital Signs Date Time Temp Pulse Resp B/P (MAP) Pulse Ox O2 Delivery O2 Flow Rate FiO2 12/03/16 08:00 97.0 85 16 110/64 (79) 93 12/03/16 00:00 97.2 81 17 128/74 (92) 97 12/02/16 20:00 97.5 88 17 134/75 (94) 97 12/02/16 16:00 97.4 81 19 114/53 (73) 96 12/02/16 12:00 96.6 95 18 126/84 (98) 96 I/O 12/02/16 12/02/16 12/02/16 12/03/16 12/03/16 12/03/16 06:59 14:59 22:59 06:59 14:59 22:59 Intake Total 0 ml 615 ml 0 ml Balance 0 ml 615 ml 0 ml Intake Oral 0 ml 615 ml 0 ml # Voids 3 7 2 # Bowel Movements 1 0 4 Result Diagram: 12/03/16 0613 12/03/16 0613 Imaging Last Impressions Hepatobiliary Scan Nuclear Medicine 12/02/16 0600 Signed Impressions: Service Date/Time: Friday, December 02, 2016 07:55 - CONCLUSION: 1. Poor hepatic uptake with enlargement of background activity on the earlier images characteristic of limited biliary function. Prior CT shows findings characteristic of hepatic cirrhosis. 2. Similarly, limited washout and tracer excretion. 3. Nonvisualization of the gallbladder. In the appropriate clinical setting, findings could represent acute cholecystitis. Damion Mejia MD Abdomen MRI 12/02/16 0000 Signed Impressions: Service Date/Time: Friday, December 02, 2016 10:32 - CONCLUSION: 1. Liver features diagnostic of a cirrhosis. No suspicious enhancing liver lesion is identified. 2. There are findings associated with chronic liver disease and portal hypertension including small volume ascites, splenomegaly, and large gastric varices. Alberto Singh MD Abdomen X-Ray 11/30/16 0939 Signed Impressions: Service Date/Time: Wednesday, November 30, 2016 10:06 - CONCLUSION: Limited exam without gross pneumoperitoneum. Eric Cruz Jr., MD Cyst Biopsy Asp-Paracentesis US 11/30/16 0000 Signed Impressions: Service Date/Time: Wednesday, November 30, 2016 14:52 - CONCLUSION: Uncomplicated ultrasound guided paracentesis. Gagandeep Damon MD Chest X-Ray 11/30/16 0000 Signed Impressions: Service Date/Time: Wednesday, November 30, 2016 10:12 - CONCLUSION: Mild atelectasis at the lung bases. No acute cardiopulmonary abnormality is identified. Alberto Singh MD Abdomen/Pelvis CT 11/30/16 0000 Signed Impressions: Service Date/Time: Wednesday, November 30, 2016 17:24 - CONCLUSION: 1. Cirrhosis with small volume ascites and mild splenomegaly. 2. Mild left basilar atelectasis. 3. Edema involving the abdominal wall. No abscess or fluid collection. 4. Umbilical hernia containing fat. Eric Cruz Jr., MD Objective Remarks GENERAL: Pleasant 66 yo male, well nourished well developed appears in nad. RESPIRATORY: No accessory muscle use. Clear to auscultation. Breath sounds equal bilaterally. GASTROINTESTINAL: Abdomen soft,diffuse tenderness, distended. MUSCULOSKELETAL: Extremities without clubbing, cyanosis, or edema. No obvious deformities. NEUROLOGICAL: Awake and alert. No obvious cranial nerve deficits. Motor grossly within normal limits. Five out of 5 muscle strength in the arms and legs. Normal speech. PSYCHIATRIC: Appropriate mood and affect; insight and judgment normal. A/P Problem List: (1) Ventral hernia ICD Code: K43.9 - Ventral hernia without obstruction or gangrene Status: Acute (2) Intractable abdominal pain ICD Code: R10.9 - Unspecified abdominal pain Status: Acute (3) Hyperbilirubinemia ICD Code: E80.6 - Other disorders of bilirubin metabolism Status: Acute (4) Liver cirrhosis ICD Code: K74.60 - Unspecified cirrhosis of liver Status: Acute (5) Abdominal pain ICD Code: R10.9 - Unspecified abdominal pain Status: Acute (6) UTI (urinary tract infection) ICD Code: N39.0 - Urinary tract infection, site not specified Status: Acute Assessment and Plan 66-year-old male admitted secondary to abdominal pain. Abdominal pain Hyperbilirubinemia Symptomatic ascites Transaminitis Hepatitis B Consult IR for therapeutic paracentesis Obtain nuclear medicine HIDA scan to evaluate for any biliary obstruction , NPO after midnight GI consult Follow bilirubin levels Follow LFTs Hepatitis Panel reviewed patient with hep B IS S/p EGD and colonoscopy 12/03/16 Gastric varices Portal gastropathy Surgical changes in the colon Internal hemorrhoids Biopsy obtain to f/u as OP with GI for results Low-salt diet Nadolol 20 mg daily Follow-up with GI post discharge High-fiber diet Colonoscopy in 5 years EGD in 1 year UTI Rocephin Follow urine cultures rev and normal DC abx Probiotics History of Alcohol Abuse Thiamine Folic Acid Follow for DTs Asthma COPD No exacerbations Follow clinically Gen. anxiety disorder Ativan ordered for procedure Hypertension Continue baseline blood pressure treatments Follow blood pressures Diabetes mellitus type 2 Follow blood sugars Insulin sliding scale Diabetic diet History of CVA Follow clinically Hyperlipidemia Follows as an outpatient DVT prophylaxis SCDs, patient has increased bleed risk Improved significantly was dc home in stable condition to f/u as OP with PCP and consultants. Advanced cutting down and quitting EtOH Problem Qualifiers (1) Ventral hernia: Qualified Codes: K43.9 - Ventral hernia without obstruction or gangrene (2) Liver cirrhosis: Qualified Codes: K70.31 - Alcoholic cirrhosis of liver with ascites Mona Contreras MD Dec 03, 2016 08:26
[2016-12-03] MEDS ORDERED: PANTOPRAZOLE SOD 40 MG DELAYED RELEASE TAB PO SCH (09:00)
[2016-12-03] MEDS ORDERED: SPIRONOLACTONE 50 MG TAB PO SCH (09:00)
[2016-12-03] MEDS: LACTULOSE SYRUP 20 GM/30 ML CUP PO SCH ×2 (09:00→11:27)
[2016-12-03] MEDS: DOCUSATE SODIUM 50 MG/SENNA 8.6 MG TAB PO SCH (09:00)
[2016-12-03] MEDS: SODIUM CHLORIDE 0.9% FLUSH 10 ML FLUSH IV FLUSH SCH (09:00)
[2016-12-03] MEDS ORDERED: FUROSEMIDE 20 MG TAB PO SCH (09:00)
[2016-12-03] MEDS ORDERED: NADOLOL 20 MG TAB PO SCH (10:45)
--- NOTE | 2016-12-03 10:47 | PD.PROCEDR ---
GI Procedure REFERRING PHYSICIAN ROGER PROCEDURE PERFORMED EGD with biopsy followed by colonoscopy INDICATION FOR PROCEDURE Cirrhosis, anemia PROCEDURE: The procedure, risks and benefits were discussed with Mr. Ortiz and informed consent was obtained. Anesthesia sedated him with Diprivan. He was placed in the left lateral decubitus position. EGD: The Pentax videoscope was introduced through the oropharynx and advanced to the second portion of the duodenum under direct visualization. Retroflexion was performed in the stomach. FINDINGS: The esophagus this appeared to be unremarkable and within normal limits no esophageal varices The stomach there was large gastric varices in the fundus and cardia no stigmata of recent bleed the gastric mucosa appeared to be diffusely edematous with cobblestone appearance suggestive of portal gastropathy the antrum was biopsied for further evaluation The duodenum this was normal Colonoscopy: The Pentax videoscope was introduced through the rectum and advanced to cecum where the ileocecal valve and appendiceal orifice were identified. Retroflexion was performed in the rectum. Colonic prep was fair FINDINGS: Colonic withdrawal time greater than 6 minutes as the scope was slowly withdrawn colonic mucosa was carefully inspected this was noted to be unremarkable and normal limits hallway through there was a surgical scar noted it the recto sigmoid junction probably prior surgical intervention otherwise colonic examination was unremarkable retroflexion did reveal moderate size internal hemorrhoids rectal examination otherwise unremarkable ESTIMATED BLOOD LOSS: None SPECIMENS REMOVED: Gastric biopsy COMPLICATIONS: None IMPRESSION: Gastric varices Portal gastropathy Surgical changes in the colon Internal hemorrhoids PLAN: Await biopsy Low-salt diet Nadolol 20 mg daily Follow-up with GI post discharge High-fiber diet Colonoscopy in 5 years EGD in 1 year Jay Thorne MD Dec 03, 2016 10:47
[2016-12-03 10:50] VITALS: BP 124/69; PULSE 88; RESP 18; TEMP 97.2; O2SAT 96
[2016-12-03] MEDS ORDERED: GNP100TA3 PO (11:10)
[2016-12-03] MEDS ORDERED: TRAM50TA PO (11:10)
[2016-12-03] MEDS ORDERED: FOLI1TAB6 PO (11:10)
[2016-12-03] MEDS: LACTOBACILLUS ACIDOPHILUS TAB PO SCH ×2 (11:10→11:26)
[2016-12-03] MEDS: RIFAXIMIN 550 MG TAB PO SCH (11:10)
[2016-12-03] MEDS ORDERED: NADO1TAB16 PO (11:10)
[2016-12-03] MEDS ORDERED: XIFA550T4 PO (11:10)
[2016-12-03] MEDS: THIAMINE HCL 100 MG TAB PO SCH (11:10)
[2016-12-03] MEDS ORDERED: ALDA50TA2 PO (11:10)
[2016-12-03] MEDS: FOLIC ACID 1 MG TAB PO SCH (11:10)
--- NOTE | 2016-12-03 11:10 | HHI.DS ---
Discharge Summary Admission Date Nov 30, 2016 at 12:17 Discharge Date: Dec 04, 2016 Admitting Diagnosis intractable abdominal pain, hyperbilirubinemia, ascites (1) Ventral hernia ICD Code: K43.9 - Ventral hernia without obstruction or gangrene Status: Acute (2) Intractable abdominal pain ICD Code: R10.9 - Unspecified abdominal pain Status: Acute (3) Hyperbilirubinemia ICD Code: E80.6 - Other disorders of bilirubin metabolism Status: Acute (4) Liver cirrhosis ICD Code: K74.60 - Unspecified cirrhosis of liver Status: Acute (5) Abdominal pain ICD Code: R10.9 - Unspecified abdominal pain Status: Acute (6) UTI (urinary tract infection) ICD Code: N39.0 - Urinary tract infection, site not specified Status: Acute Procedures EGD/colonoscopy Brief History - From Admission Mr. Ortiz is a 66 year old male. He returns to the ER today, he was here yesterday, for abdominal pain. He's been having abdominal pain and distention recently. She attributes this to return to abusing alcohol temporarily. Since yesterday's bilirubin level has increased and he has elevated LFTs. At baseline he has cirrhosis and ascites. He's had a paracentesis in the past. Etiology for his symptoms may be related to his ascites or could represent an obstructive biliary pattern. His primary complaint is pain. He not denies any fever. CBC/BMP: 12/03/16 0613 12/03/16 0613 Significant Findings Laboratory Tests Test 11/30/16 11:31 12/01/16 06:35 12/02/16 06:22 12/03/16 06:13 Urine Color DARK-YELLOW (YELLW/STRAW) Urine Turbidity HAZY (CLEAR) Urine Occult Blood SMALL (NEG) Urine Bilirubin SMALL (NEG) Urine Urobilinogen 4.0 MG/DL (LESS THAN Urine Leukocyte Esterase LARGE (NEG) Urine RBC 9 /hpf (0-3) Urine WBC 141 /hpf (0-5) Urine WBC Clumps FEW (NONE) Urine Bacteria RARE /hpf (NONE) Urine Mucus FEW /lpf (OCC) Red Blood Count 3.39 MIL/MM3 (4.50-5.90) 3.26 MIL/MM3 (4.50-5.90) 3.17 MIL/MM3 (4.50-5.90) Hemoglobin 11.7 GM/DL (13.0-17.0) 11.4 GM/DL (13.0-17.0) 11.0 GM/DL (13.0-17.0) Hematocrit 34.2 % (39.0-51.0) 33.2 % (39.0-51.0) 31.9 % (39.0-51.0) Mean Corpuscular Volume 100.7 FL (80.0-100.0) 102.0 FL (80.0-100.0) 100.8 FL (80.0-100.0) Mean Corpuscular Hemoglobin 34.4 PG (27.0-34.0) 34.9 PG (27.0-34.0) 34.7 PG (27.0-34.0) Platelet Count 63 TH/MM3 (150-450) 56 TH/MM3 (150-450) 56 TH/MM3 (150-450) Monocytes (%) (Auto) 8.1 % (0.0-8.0) 10.7 % (0.0-8.0) 12.9 % (0.0-8.0) Eosinophils (%) (Auto) 4.1 % (0.0-4.0) 4.4 % (0.0-4.0) 5.4 % (0.0-4.0) Lymphocytes # (Auto) 0.8 TH/MM3 (1.0-4.8) 0.8 TH/MM3 (1.0-4.8) Random Glucose 108 MG/DL (74-106) Total Protein 6.0 GM/DL (6.4-8.2) 6.0 GM/DL (6.4-8.2) 5.9 GM/DL (6.4-8.2) Albumin 2.3 GM/DL (3.4-5.0) 2.2 GM/DL (3.4-5.0) 2.2 GM/DL (3.4-5.0) Calcium Level 8.1 MG/DL (8.5-10.1) 8.0 MG/DL (8.5-10.1) 8.0 MG/DL (8.5-10.1) Alkaline Phosphatase 177 U/L (45-117) 169 U/L (45-117) 156 U/L (45-117) Aspartate Amino Transf (AST/SGOT) 112 U/L (15-37) 125 U/L (15-37) 134 U/L (15-37) Total Bilirubin 5.0 MG/DL (0.2-1.0) 5.0 MG/DL (0.2-1.0) 4.8 MG/DL (0.2-1.0) Chloride Level 108 MEQ/L (98-107) 110 MEQ/L (98-107) 109 MEQ/L (98-107) Estimat Glomerular Filtration Rate 81 ML/MIN (>89) 81 ML/MIN (>89) Ammonia 75 MCMOL/L (11-32) 62 MCMOL/L (11-32) 49 MCMOL/L (11-32) Tumor Marker Alpha Fetoprotein 171.1 NG/ML (0.5-8.0) Hepatitis B Surface Antigen POSITIVE (NEGATIVE) Basophils (%) (Auto) 2.6 % (0.0-2.0) Platelet Estimate LOW (NORMAL) LOW (NORMAL) White Blood Count 3.3 TH/MM3 (4.0-11.0) Imaging Last Impressions Hepatobiliary Scan Nuclear Medicine 12/02/16 0600 Signed Impressions: Service Date/Time: Friday, December 02, 2016 07:55 - CONCLUSION: 1. Poor hepatic uptake with enlargement of background activity on the earlier images characteristic of limited biliary function. Prior CT shows findings characteristic of hepatic cirrhosis. 2. Similarly, limited washout and tracer excretion. 3. Nonvisualization of the gallbladder. In the appropriate clinical setting, findings could represent acute cholecystitis. Damion Mejia MD Abdomen MRI 12/02/16 0000 Signed Impressions: Service Date/Time: Friday, December 02, 2016 10:32 - CONCLUSION: 1. Liver features diagnostic of a cirrhosis. No suspicious enhancing liver lesion is identified. 2. There are findings associated with chronic liver disease and portal hypertension including small volume ascites, splenomegaly, and large gastric varices. Alberto Singh MD Abdomen X-Ray 11/30/16 0939 Signed Impressions: Service Date/Time: Wednesday, November 30, 2016 10:06 - CONCLUSION: Limited exam without gross pneumoperitoneum. Eric Cruz Jr., MD Cyst Biopsy Asp-Paracentesis US 11/30/16 0000 Signed Impressions: Service Date/Time: Wednesday, November 30, 2016 14:52 - CONCLUSION: Uncomplicated ultrasound guided paracentesis. Gagandeep Damon MD Chest X-Ray 11/30/16 0000 Signed Impressions: Service Date/Time: Wednesday, November 30, 2016 10:12 - CONCLUSION: Mild atelectasis at the lung bases. No acute cardiopulmonary abnormality is identified. Alberto Singh MD Abdomen/Pelvis CT 11/30/16 0000 Signed Impressions: Service Date/Time: Wednesday, November 30, 2016 17:24 - CONCLUSION: 1. Cirrhosis with small volume ascites and mild splenomegaly. 2. Mild left basilar atelectasis. 3. Edema involving the abdominal wall. No abscess or fluid collection. 4. Umbilical hernia containing fat. Eric Cruz Jr., MD PE at Discharge GENERAL: Pleasant 66 yo male, well nourished well developed appears in nad. RESPIRATORY: No accessory muscle use. Clear to auscultation. Breath sounds equal bilaterally. GASTROINTESTINAL: Abdomen soft,diffuse tenderness, distended. MUSCULOSKELETAL: Extremities without clubbing, cyanosis, or edema. No obvious deformities. NEUROLOGICAL: Awake and alert. No obvious cranial nerve deficits. Motor grossly within normal limits. Five out of 5 muscle strength in the arms and legs. Normal speech. PSYCHIATRIC: Appropriate mood and affect; insight and judgment normal. Hospital Course 66-year-old male admitted secondary to abdominal pain. Abdominal pain Hyperbilirubinemia Symptomatic ascites Transaminitis Hepatitis B Consult IR for therapeutic paracentesis Obtain nuclear medicine HIDA scan to evaluate for any biliary obstruction , NPO after midnight GI consult Follow bilirubin levels Follow LFTs Hepatitis Panel reviewed patient with hep B IS S/p EGD and colonoscopy 12/03/16 Gastric varices Portal gastropathy Surgical changes in the colon Internal hemorrhoids Biopsy obtain to f/u as OP with GI for results Low-salt diet Nadolol 20 mg daily Follow-up with GI post discharge High-fiber diet Colonoscopy in 5 years EGD in 1 year UTI Rocephin Follow urine cultures rev and normal DC abx Probiotics History of Alcohol Abuse Thiamine Folic Acid Follow for DTs Asthma COPD No exacerbations Follow clinically Gen. anxiety disorder Ativan ordered for procedure Hypertension Continue baseline blood pressure treatments Follow blood pressures Diabetes mellitus type 2 Follow blood sugars Insulin sliding scale Diabetic diet History of CVA Follow clinically Hyperlipidemia Follows as an outpatient DVT prophylaxis SCDs, patient has increased bleed risk Improved significantly was dc home in stable condition to f/u as OP with PCP and consultants. Advanced cutting down and quitting EtOH Pt Condition on Discharge: Stable Discharge Disposition: Discharge Home Discharge Time: > 30 minutes Discharge Instructions DIET: Follow Instructions for: Heart Healthy Diet Activities you can perform: Regular-No Restrictions Follow up Referrals: Gastroenterology - 2 Weeks with Jay Thorne MD PCP Follow-up - 2-3 Days New Medications: Folic Acid (Folic Acid) 1 Mg Tablet 1 MG PO DAILY for mvt, #30 MG Nadolol (Corgard) 20 Mg Tab 20 MG PO DAILY for varices/cirrhosis, #30 TAB Rifaximin (Xifaxan) 550 Mg Tab 550 MG PO BID for ascites, #60 TAB Spironolactone (Aldactone) 50 Mg Tab 50 MG PO DAILY for ascites, #30 TAB Thiamine HCl (Gnp Vitamin B-1) 100 Mg Tab 100 MG PO DAILY for mvt, #30 TAB Continued Medications: Budesonide-Formoterol Inh (Symbicort Inh) 160-4.5 Mcg/Act Aero 2 PUFF INH Q12HR for copd, #30 INHALER Cephalexin (Keflex) 500 Mg Cap 500 MG PO Q8H for Infection for 10 Days, #30 CAP 0 Refills Clonazepam (Klonopin) 1 Mg Tab 1 MG PO BID, #60 TAB 0 Refills Furosemide (Lasix) 20 Mg Tab 20 MG PO DAILY, #30 TAB 0 Refills Metformin (Metformin) 500 Mg Tab 500 MG PO BIDPC for Blood Sugar Management, #60 TAB 0 Refills With meals Potassium Chloride ER (Potassium Chloride ER) 10 Meq Cap 10 MEQ PO DAILY for Electrolyte Replacement for 7 Days, #7 CAP 0 Refills Tiotropium Inh (Spiriva Handihaler) 18 Mcg Cap 18 MCG INH DAILY for copd , #30 CAP Tramadol (Tramadol) 50 Mg Tab 50 MG PO Q6H PRN for PAIN, #15 TAB 0 Refills (This prescription has been renewed ) [Bp Med] () PO BID Mona Contreras MD Dec 03, 2016 11:10
[2016-12-04 11:52] LABS: HEP B DNA R1 LESS THAN 20 IU/mL (0-19); HEP B DNA R2 LESS THAN 1.30 (<1.30)
== END 2016-12-03 12:35 | disposition home or self-care (01) | DRG 433 ==
LOC: NEPC 08:07 → NEDA 12:17 → N07A 17:46
PROVIDERS: ADMIT Hospitalist; ATTEND Hospitalist
PROC: 0W9G3ZZ Drainage of Peritoneal Cavity, Percutaneous Approach (ICD-10-PCS; principal; 2016-11-30)
PROC: 0DB68ZX Excision of Stomach, Via Natural or Artificial Opening Endoscopic, Diagnostic (ICD-10-PCS; 2016-12-03)
PROC: 0DJD8ZZ Inspection of Lower Intestinal Tract, Via Natural or Artificial Opening Endoscopic (ICD-10-PCS; 2016-12-03)
DX: K70.31 Alcoholic cirrhosis of liver with ascites (principal); K76.6 Portal hypertension; J44.9 Chronic obstructive pulmonary disease, unspecified; D64.9 Anemia, unspecified; I10 Essential (primary) hypertension; E11.9 Type 2 diabetes mellitus without complications; B18.1 Chronic viral hepatitis B without delta-agent; F32.9 Major depressive disorder, single episode, unspecified; J45.909 Unspecified asthma, uncomplicated; I86.4 Gastric varices; F10.21 Alcohol dependence, in remission; F41.1 Generalized anxiety disorder; K43.9 Ventral hernia without obstruction or gangrene; K64.8 Other hemorrhoids; E78.5 Hyperlipidemia, unspecified; Z86.73 Personal history of transient ischemic attack (TIA), and cerebral infarction without residual deficits; Z87.891 Personal history of nicotine dependence; Z79.84 Long term (current) use of oral hypoglycemic drugs
CPT/HCPCS: 49083; 71010; 74000; 74177; 74183; 78226; 80053; 80074; 81001; 82105; 82140; 82948; 83690; 85025; 85610; 86704; 86707; 87086; 87517; 88305; 96374; A9537; A9579; C1729; J0696; J1170; J2060; J2270; J2405; Q9963; Q9967

== ENCOUNTER 2016-12-09 20:31 | Emergency (ER) | payer OTHER, MEDICARE ==
[~2016-12-09 20:31] MED LIST changes: +ALDA50TA2 PO; +FOLI1TAB6 PO; +GNP100TA3 PO; +NADO1TAB16 PO; +XIFA550T4 PO
[2016-12-09 20:32] VITALS: BP 161/72; PULSE 95; RESP 18; TEMP 98.7; O2SAT 98
[2016-12-09] MEDS ORDERED: SODIUM CHLORIDE 0.9% FLUSH 10 ML FLUSH IV FLUSH PRN (21:00)
[2016-12-09] MEDS ORDERED: MORPHINE SULFATE 4 MG/ML INJ IV PUSH ONE (21:00)
[2016-12-09] MEDS ORDERED: ONDANSETRON HCL 4 MG/2 ML VIAL IVP ONE (21:00)
--- NOTE | 2016-12-09 21:01 | PD ---
HPI Chief Complaint: Abdominal Pain Time Seen by Provider: 20:47 Travel History International Travel<30 days: No Contact w/Intl Traveler<30days: No Traveled to known affect area: No History of Present Illness HPI Patient comes to the emergency Department complaining of continued abdominal pain. Patient states that he began filling back up with fluid in his abdomen 2 days ago. Patient having pressure-like pain to his lower abdomen. Patient denies anything making this better or worse. Patient states lying flat makes it difficult for him to breathe. Patient denies any fevers, nausea, vomiting, loss change in bowel or bladder, chest pain, shortness of breath except with laying down, headaches, or back pain. Patient states he is not able to fill all of the medication as prescribed last visit yet and has to have it changed by his [facility] doctor. He states he tried to follow up with his doctor at the [facility] however was unable to be seen and decided to come back to the emergency department further treatment and evaluation. Patient states that he continues to leak a little bit of fluid from where they did the paracentesis and he just change the dressing as needed. PFSH Past Medical History Arthritis: Yes Asthma: No Anxiety: No Depression: No Heart Rhythm Problems: No Cancer: No Cardiovascular Problems: Yes High Cholesterol: No Chest Pain: No Congestive Heart Failure: No Cirrhosis: Yes COPD: Yes Cerebrovascular Accident: Yes Diabetes: Yes Patient Takes Glucophage: Yes Diminished Hearing: No Endocrine: Yes Gastrointestinal Disorders: Yes Genitourinary: Yes Hepatitis: Yes (C) Hiatal Hernia: Yes Hypertension: Yes Immune Disorder: No Implanted Vascular Access Dvce: No Musculoskeletal: No Neurologic: No Psychiatric: No Reproductive: No Respiratory: Yes Sleep Apnea: Yes Thyroid Disease: No Past Surgical History Abdominal Surgery: Yes ( hernia colon resection) Cardiac Surgery: No Ear Surgery: No Endocrine Surgery: Yes Eye Surgery: No Genitourinary Surgery: No Gynecologic Surgery: No Neurologic Surgery: No Oral Surgery: No Thoracic Surgery: No Tonsillectomy: Yes Other Surgery: Yes (SPLENECTOMY) Social History Alcohol Use: Yes Tobacco Use: Yes (QUIT 2015) Substance Use: Yes Allergies-Medications (Allergen,Severity, Reaction): Coded Allergies: No Known Allergies (Unverified , 12/09/16) Reported Meds & Prescriptions Reported Meds & Active Scripts Active Xifaxan (Rifaximin) 550 Mg Tab 550 Mg PO BID Gnp Vitamin B-1 (Thiamine HCl) 100 Mg Tab 100 Mg PO DAILY Potassium Chloride ER (Potassium Chloride) 10 Meq Cap 10 Meq PO DAILY 7 Days Keflex (Cephalexin) 500 Mg Cap 500 Mg PO Q8H 10 Days Spiriva Handihaler (Tiotropium Inh) 18 Mcg Cap 18 Mcg INH DAILY Symbicort Inh (Budesonide/Formoterol Fumarate) 160-4.5 Mcg/Act Aero 2 Puff INH Q12HR Reported Klonopin (Clonazepam) 1 Mg Tab 1 Mg PO BID [Bp Med] PO BID Metformin (Metformin HCl) 500 Mg Tab 500 Mg PO BIDPC With meals Review of Systems Except as stated in HPI: all other systems reviewed are Neg Physical Exam Narrative GENERAL: Well-developed, overly nourished, in no acute distress, and non-ill appearing. SKIN: Focused skin assessment warm and dry. Dressing noted right lower quadrant abdomen that is dry clean intact. Upon removal dressing with no signs of erythematous, crepitus, or induration. HEAD: Atraumatic. Normocephalic. EYES: Pupils equal and round. EOMI. No scleral icterus. No injection or drainage. ENT: No nasal bleeding or discharge. Mucous membranes pink and moist. NECK: Trachea midline. No JVD. Supple. No nuclear rigidity. CARDIOVASCULAR: Regular rate and rhythm. No murmur appreciated. RESPIRATORY: No accessory muscle use. No respiratory distress. Clear to auscultation. Breath sounds equal bilaterally. GASTROINTESTINAL: Abdomen soft, non-tender, distended with ascites noted, and no guarding. Hepatic and splenic margins not palpable. Normal bowel sounds 4. No pulsatile mass. MUSCULOSKELETAL: No obvious deformities. No clubbing. No cyanosis. No edema. Full range of motion. NEUROLOGICAL: Awake and alert. No obvious cranial nerve deficits. Motor grossly within normal limits. Normal speech. PSYCHIATRIC: Appropriate mood and affect; insight and judgment normal. Data Data Last Documented VS Vital Signs Date Time Temp Pulse Resp B/P (MAP) Pulse Ox O2 Delivery O2 Flow Rate FiO2 12/10/16 01:57 12/10/16 00:45 89 16 95 Room Air 12/09/16 20:32 98.7 Orders Orders Complete Blood Count With Diff (12/09/16 20:55) Comprehensive Metabolic Panel (12/09/16 20:55) Lipase (12/09/16 20:55) Prothrombin Time / Inr (Pt) (12/09/16 20:55) Act Partial Throm Time (Ptt) (12/09/16 20:55) Urinalysis - C+S If Indicated (12/09/16 20:55) Iv Access Insert/Monitor (12/09/16 20:55) Ecg Monitoring (12/09/16 20:55) Oximetry (12/09/16 20:55) Morphine Inj (Morphine Inj) (12/09/16 21:00) Ondansetron Inj (Zofran Inj) (12/09/16 21:00) Sodium Chloride 0.9% Flush (Ns Flush) (12/09/16 21:00) Tramadol (Ultram) (12/09/16 22:45) Ed Discharge Order (12/10/16 01:27) Labs Laboratory Tests Test 12/09/16 21:08 12/09/16 21:20 White Blood Count 4.4 TH/MM3 Red Blood Count 3.22 MIL/MM3 Hemoglobin 11.0 GM/DL Hematocrit 32.3 % Mean Corpuscular Volume 100.3 FL Mean Corpuscular Hemoglobin 34.3 PG Mean Corpuscular Hemoglobin Concent 34.2 % Red Cell Distribution Width 15.6 % Platelet Count 50 TH/MM3 Mean Platelet Volume 8.7 FL Neutrophils (%) (Auto) 61.7 % Lymphocytes (%) (Auto) 21.8 % Monocytes (%) (Auto) 9.7 % Eosinophils (%) (Auto) 4.9 % Basophils (%) (Auto) 1.9 % Neutrophils # (Auto) 2.7 TH/MM3 Lymphocytes # (Auto) 1.0 TH/MM3 Monocytes # (Auto) 0.4 TH/MM3 Eosinophils # (Auto) 0.2 TH/MM3 Basophils # (Auto) 0.1 TH/MM3 CBC Comment AUTO DIFF Differential Comment AUTO DIFF CONFIRMED Platelet Estimate LOW Platelet Morphology Comment NORMAL Prothrombin Time 13.6 SEC Prothromb Time International Ratio 1.2 RATIO Activated Partial Thromboplast Time 36.8 SEC Blood Urea Nitrogen 18 MG/DL Creatinine 0.88 MG/DL Random Glucose 109 MG/DL Total Protein 6.0 GM/DL Albumin 2.3 GM/DL Calcium Level 8.2 MG/DL Alkaline Phosphatase 241 U/L Aspartate Amino Transf (AST/SGOT) 126 U/L Alanine Aminotransferase (ALT/SGPT) 70 U/L Total Bilirubin 4.1 MG/DL Sodium Level 142 MEQ/L Potassium Level 3.8 MEQ/L Chloride Level 113 MEQ/L Carbon Dioxide Level 22.0 MEQ/L Anion Gap 7 MEQ/L Estimat Glomerular Filtration Rate 87 ML/MIN Lipase 480 U/L Urine Color YELLOW Urine Turbidity CLEAR Urine pH 5.5 Urine Specific [place] 1.022 Urine Protein NEG mg/dL Urine Glucose (UA) NEG mg/dL Urine Ketones NEG mg/dL Urine Occult Blood TRACE Urine Nitrite NEG Urine Bilirubin NEG Urine Urobilinogen 4.0 MG/DL Urine Leukocyte Esterase SMALL Urine RBC 1 /hpf Urine WBC 3 /hpf Urine Squamous Epithelial Cells 1 /hpf Urine Hyaline Casts 3 /lpf Urine Mucus FEW /lpf Microscopic Urinalysis Comment CULT NOT INDICATED MDM Medical Decision Making Medical Screen Exam Complete: Yes Emergency Medical Condition: Yes Differential Diagnosis Ascites, peritonitis, liver cirrhosis, UTI, electrolyte abnormality, other Narrative Course Patient in no obvious distress upon re-evaluation. All pertinent laboratory result(s) discussed with patient. Patient given order for outpatient paracentesis. Discussed patient with Dr. Mcdonough prior to discharge, who is in agreement with plan care and disposition. Patient was asked if they wanted to speak to my attending, which the patient did not wish to do at this time. Any questions/concerns in reference to patient diagnosis/condition discussed and clarified prior to patient's discharge. Reinforced sheer importance of close follow up with patient's primary physician or primary care clinic and GI. Instructed patient to return to ED immediately, if symptoms return/worsen. Patient showed understanding of above instructions. Further instructions and recommendations were detailed in discharge paperwork. Patient ambulated without difficulty out of ED at discharge. Diagnosis Primary Impression: Ascites Qualified Codes: R18.8 - Other ascites Referrals: Jay Thorne MD Patient Instructions: Ascites (ED), General Instructions Additional Instructions: Follow-up with your primary care physician and especially GI as soon as possible for further evaluation or cirrhosis and ascites. You been given an order for outpatient paracentesis along with directions on where to have this done. Take all medication as previously prescribed. Return to the emergency department if symptoms get worse. Disposition: 01 DISCHARGE HOME Condition: Stable Major Peña Dec 09, 2016 21:01
[2016-12-09 21:12] VITALS: O2SAT 94
[2016-12-09 21:44] LABS: BLOOD, URINE TRACE (NEG); GLUCOSE,URINE NEG (NEG); HYALINE CAST, URINE 3 /lpf (RARE); KETONE, URINE NEG (NEG); MUCUS URINE FEW /lpf (OCC); NITRITE,URINE NEG (NEG); PH, URINE 5.5 (5.0-8.5); SQUAMOUS EPITHELIAL CELL URINE 1 /hpf (0-5); URINE COLOR YELLOW (YELLW/STRAW); URINE LEUKOCYTE ESTERASE SMALL (NEG)
[2016-12-09 21:46] LABS: BILIRUBIN, URINE NEG (NEG)
[2016-12-09 21:50] LABS: AUTOMATED NEUTROPHIL # 2.7 TH/MM3 (1.8-7.7); BASOPHIL # 0.1 TH/MM3 (0-0.2); BASOPHIL % 1.9 % (0.0-2.0); EOSINOPHIL # 0.2 TH/MM3 (0-0.4); EOSINOPHIL % 4.9 % (0.0-4.0); HEMATOCRIT 32.3 % (39.0-51.0); LYMPH % 21.8 % (9.0-44.0); MEAN CELL VOLUME 100.3 FL (80.0-100.0); MEAN CORPUSCULAR HEMOGLOBIN 34.3 PG (27.0-34.0); MEAN CORPUSCULAR HGB CONC 34.2 % (32.0-36.0); MEAN PLATELET VOLUME 8.7 FL (7.0-11.0); MONO % 9.7 % (0.0-8.0); MONOCYTE # 0.4 TH/MM3 (0-0.9); NEUT % 61.7 % (16.0-70.0); PLATELET COUNT 50 TH/MM3 (150-450); RED BLOOD COUNT 3.22 MIL/MM3 (4.50-5.90); RED CELL DISTRIBUTION WIDTH 15.6 % (11.6-17.2); WHITE BLOOD COUNT 4.4 TH/MM3 (4.0-11.0)
[2016-12-09 21:52] LABS: INTERNATIONAL NORMALIZED RATIO 1.2 RATIO; PROTHROMBIN TIME - PATIENT 13.6 SEC (9.8-11.6)
[2016-12-09 22:05] LABS: ALBUMIN 2.3 GM/DL (3.4-5.0); BLOOD UREA NITROGEN 18 MG/DL (7-18); CALCIUM 8.2 MG/DL (8.5-10.1); CHLORIDE 113 MEQ/L (98-107); CREATININE 0.88 MG/DL (0.60-1.30); GLOMERULAR FILTRATION RATE 87 ML/MIN (>89); GLUCOSE,RANDOM 109 MG/DL (74-106); LIPASE 480 U/L (73-393); SODIUM (NA) 142 MEQ/L (136-145)
[2016-12-09 22:06] LABS: AST (GOT) 126 U/L (15-37)
[2016-12-09 22:09] LABS: ALKALINE PHOSPHATASE 241 U/L (45-117); ALT (GPT) 70 U/L (12-78); TOTAL BILIRUBIN ADULT 4.1 MG/DL (0.2-1.0)
[2016-12-09] MEDS ORDERED: traMADol HCL 50 MG TAB PO ONE (22:45)
[2016-12-10 00:45] VITALS: BP 110/64; PULSE 89; RESP 16; O2SAT 95
[2016-12-15] MEDS ORDERED: ALDA50TA2 PO (14:46)
[2016-12-15] MEDS ORDERED: XIFA550T4 PO (14:46)
[2016-12-15] MEDS ORDERED: NADO1TAB16 PO (14:46)
[2016-12-15] MEDS ORDERED: POTA10CA PO (14:46)
[2016-12-15] MEDS ORDERED: TRAM50TA PO (14:46)
[2016-12-15] MEDS ORDERED: METF500T PO (14:46)
[2016-12-15] MEDS ORDERED: SPIRCAP INH (14:46)
[2016-12-15] MEDS ORDERED: FURO1TAB62 PO (14:46)
== END 2016-12-10 01:57 | disposition home or self-care (01) ==
LOC: NEPE 20:31
DX: R18.8 Other ascites (principal); J44.9 Chronic obstructive pulmonary disease, unspecified; E11.9 Type 2 diabetes mellitus without complications; I10 Essential (primary) hypertension
CPT/HCPCS: 80053; 81001; 83690; 85025; 85610; 85730; 96374; 96375; 99284; J2270; J2405

== ENCOUNTER 2016-12-15 12:42 | Emergency (ER) | payer OTHER, MEDICARE ==
[~2016-12-15] VITALS: Ht 175.3 cm; Wt 110.0 kg
[~2016-12-15 12:42] MED LIST changes: -ALDA50TA2 PO; -FOLI1TAB6 PO; -FURO1TAB62 PO; -NADO1TAB16 PO; -TRAM50TA PO
[2016-12-15 12:43] VITALS: BP 143/67; PULSE 91; RESP 20; TEMP 98.1; O2SAT 95
--- NOTE | 2016-12-15 12:48 | PD ---
Physical Exam Date Seen by Provider: Dec 15, 2016 Time Seen by Provider: 12:46 Narrative 66-year-old white male presents to emergency department requesting paracentesis for end-stage liver disease and cirrhosis. He was sent by the [facility] for evaluation. He states that over the last 3-4 days he's noted increasing abdominal girth, shortness of breath and weakness. He's had some nausea and vomiting. Symptoms are moderate to severe. Worse with ambulation. He states that he was seen in the ER recently a few weeks ago and had paracentesis. Vital signs reviewed. Pt waiting for bed placement. Data Data Last Documented VS Vital Signs Date Time Temp Pulse Resp B/P (MAP) Pulse Ox O2 Delivery O2 Flow Rate FiO2 12/15/16 12:43 98.1 91 20 143/67 (92) 95 Room Air [facility] Medical Record Reviewed: No Supervised Visit with DIEGO: Tim Gu Dec 15, 2016 12:47
--- NOTE | 2016-12-15 12:48 | PD ---
Physical Exam Date Seen by Provider: Dec 15, 2016 Time Seen by Provider: 12:46 Narrative 66-year-old white male presents to emergency department requesting paracentesis for end-stage liver disease and cirrhosis. He was sent by the [place] for evaluation. He states that over the last 3-4 days he's noted increasing abdominal girth, shortness of breath and weakness. He's had some nausea and vomiting. Symptoms are moderate to severe. Worse with ambulation. He states that he was seen in the ER recently a few weeks ago and had paracentesis. Vital signs reviewed. Pt waiting for bed placement. Data Data Last Documented VS Vital Signs Date Time Temp Pulse Resp B/P (MAP) Pulse Ox O2 Delivery O2 Flow Rate FiO2 12/15/16 12:43 98.1 91 20 143/67 (92) 95 Room Air [facility] Medical Record Reviewed: No Supervised Visit with DIEGO: Tim Gu Dec 15, 2016 12:47
--- NOTE | 2016-12-15 12:48 | PD ---
Physical Exam Date Seen by Provider: Dec 15, 2016 Time Seen by Provider: 12:46 Narrative 66-year-old white male presents to emergency department requesting paracentesis for end-stage liver disease and cirrhosis. He was sent by the [facility] for evaluation. He states that over the last 3-4 days he's noted increasing abdominal girth, shortness of breath and weakness. He's had some nausea and vomiting. Symptoms are moderate to severe. Worse with ambulation. He states that he was seen in the ER recently a few weeks ago and had paracentesis. Vital signs reviewed. Pt waiting for bed placement. Data Data Last Documented VS Vital Signs Date Time Temp Pulse Resp B/P (MAP) Pulse Ox O2 Delivery O2 Flow Rate FiO2 12/15/16 12:43 98.1 91 20 143/67 (92) 95 Room Air [facility] Medical Record Reviewed: No Supervised Visit with DIEGO: Tim Gu Dec 15, 2016 12:47
--- NOTE | 2016-12-15 13:25 | PD ---
HPI Chief Complaint: Abdominal Pain Time Seen by Provider: 12:55 Travel History International Travel<30 days: No Contact w/Intl Traveler<30days: No Traveled to known affect area: No History of Present Illness HPI To 66-year-old man a recent diagnosis of cirrhosis who presents emergency Department several weeks worth of increasing abdominal girth distention and abdominal pain. States he is given a prescription for multiple medications to manage cirrhosis but states [facility] and they sent him here. States he had not been able to fill the medications prior because he needed [facility]. With the pain. No fevers. No other complaints. History Past Medical History Narrative Medical Cirrhosis, alcoholic liver disease Diabetes COPD History of CVA Hyperlipidemia Anxiety History of colon resection from diverticulitis with colostomy, now reversed Social History Alcohol Use: No (not for 2 months) Tobacco Use: Yes ( ) Allergies-Medications (Allergen,Severity, Reaction): Coded Allergies: No Known Allergies (Unverified , 12/09/16) Reported Meds & Prescriptions Reported Meds & Active Scripts Active Xifaxan (Rifaximin) 550 Mg Tab 550 Mg PO BID Gnp Vitamin B-1 (Thiamine HCl) 100 Mg Tab 100 Mg PO DAILY Potassium Chloride ER (Potassium Chloride) 10 Meq Cap 10 Meq PO DAILY 7 Days Keflex (Cephalexin) 500 Mg Cap 500 Mg PO Q8H 10 Days Symbicort Inh (Budesonide/Formoterol Fumarate) 160-4.5 Mcg/Act Aero 2 Puff INH Q12HR Reported Klonopin (Clonazepam) 1 Mg Tab 1 Mg PO BID [Bp Med] PO BID Metformin (Metformin HCl) 500 Mg Tab 500 Mg PO BIDPC With meals Review of Systems Except as stated in HPI: all other systems reviewed are Neg Physical Exam Narrative GENERAL: Chronically ill-appearing 60 thyromegaly acute distress. SKIN: Focused skin assessment warm/dry. HEAD: Atraumatic. Normocephalic. EYES: Pupils equal and round. No scleral icterus. No injection or drainage. ENT: No nasal bleeding or discharge. Mucous membranes pink and moist. NECK: Trachea midline. No JVD. CARDIOVASCULAR: Regular rate and rhythm. No murmur appreciated. RESPIRATORY: No accessory muscle use. Clear to auscultation. Breath sounds equal bilaterally. GASTROINTESTINAL: Abdomen distended with multiple old healed surgical scars, dull to percussion, mildly tender throughout. MUSCULOSKELETAL: No obvious deformities. Moderate bilateral lower extremity edema NEUROLOGICAL: Awake and alert. No obvious cranial nerve deficits. Motor grossly within normal limits. Normal speech. PSYCHIATRIC: Appropriate mood and affect; insight and judgment normal. Data Data Last Documented VS Vital Signs Date Time Temp Pulse Resp B/P (MAP) Pulse Ox O2 Delivery O2 Flow Rate FiO2 12/15/16 14:33 98.0 82 20 138/77 (97) 98 12/15/16 12:43 Room Air Orders Orders Complete Blood Count With Diff (12/15/16 13:19) Basic Metabolic Panel (Bmp) (12/15/16 13:19) Act Partial Throm Time (Ptt) (12/15/16 13:19) Prothrombin Time / Inr (Pt) (12/15/16 13:19) Iv Access Insert/Monitor (12/15/16 13:19) Tramadol (Ultram) (12/15/16 13:30) Us Abdomen Lower Limited (12/15/16 ) Labs Laboratory Tests Test 12/15/16 13:25 White Blood Count 4.9 TH/MM3 Red Blood Count 3.26 MIL/MM3 Hemoglobin 11.2 GM/DL Hematocrit 32.9 % Mean Corpuscular Volume 100.9 FL Mean Corpuscular Hemoglobin 34.2 PG Mean Corpuscular Hemoglobin Concent 33.9 % Red Cell Distribution Width 15.7 % Platelet Count 86 TH/MM3 Mean Platelet Volume 9.6 FL Neutrophils (%) (Auto) 75.3 % Lymphocytes (%) (Auto) 13.7 % Monocytes (%) (Auto) 6.7 % Eosinophils (%) (Auto) 3.1 % Basophils (%) (Auto) 1.2 % Neutrophils # (Auto) 3.7 TH/MM3 Lymphocytes # (Auto) 0.7 TH/MM3 Monocytes # (Auto) 0.3 TH/MM3 Eosinophils # (Auto) 0.2 TH/MM3 Basophils # (Auto) 0.1 TH/MM3 CBC Comment AUTO DIFF Differential Comment AUTO DIFF CONFIRMED Platelet Estimate LOW Platelet Morphology Comment NORMAL Prothrombin Time 13.8 SEC Prothromb Time International Ratio 1.2 RATIO Activated Partial Thromboplast Time 36.4 SEC Blood Urea Nitrogen 17 MG/DL Creatinine 0.91 MG/DL Random Glucose 105 MG/DL Calcium Level 7.9 MG/DL Sodium Level 139 MEQ/L Potassium Level 4.2 MEQ/L Chloride Level 111 MEQ/L Carbon Dioxide Level 20.4 MEQ/L Anion Gap 8 MEQ/L Estimat Glomerular Filtration Rate 84 ML/MIN [facility] Medical Decision Making Medical Screen Exam Complete: Yes Emergency Medical Condition: Yes Interpretation(s) LABS: CBC remarkable for mild anemia. BMP is unremarkable. INR 1.2 Ultrasound: On the fluid to drain. Differential Diagnosis Ascites, cirrhosis, other Narrative Course Medical decision-making 66-year-old man, liver disease, not yet medically treated. Now with recurrent ascites. We'll need therapeutic paracentesis to be reinitiated on his diuretics and medications. Diagnosis Primary Impression: Liver cirrhosis Additional Instructions: Take medications as prescribed. [facility]. Med/Other Pt SpecificInfo: Prescription(s) given Scripts Tiotropium Inh (Spiriva Handihaler) 18 Mcg Cap 18 MCG INH DAILY for copd , #30 CAP Prov: Yrn Power MD 12/15/16 Furosemide (Lasix) 20 Mg Tab 20 MG PO DAILY, #30 TAB 0 Refills Prov: Yrn Power MD 12/15/16 Spironolactone (Aldactone) 50 Mg Tab 50 MG PO DAILY for ascites, #30 TAB Prov: Yrn Power MD 12/15/16 Nadolol (Corgard) 20 Mg Tab 20 MG PO DAILY for varices/cirrhosis, #30 TAB Prov: Yrn Power MD 12/15/16 Tramadol (Tramadol) 50 Mg Tab 50 MG PO Q6H Y for PAIN, #15 TAB 0 Refills Prov: Yrn Power MD 12/15/16 Rifaximin (Xifaxan) 550 Mg Tab 550 MG PO BID for ascites, #60 TAB Prov: Yrn Power MD 12/15/16 Potassium Chloride ER (Potassium Chloride ER) 10 Meq Cap 10 MEQ PO DAILY for Electrolyte Replacement for 7 Days, #7 CAP 0 Refills Prov: Yrn Power MD 12/15/16 Metformin (Metformin) 500 Mg Tab 500 MG PO BIDPC for Blood Sugar Management, #60 TAB 0 Refills With meals Prov: Yrn Power MD 12/15/16 Disposition: 01 DISCHARGE HOME Condition: Stable Yrn Power MD Dec 15, 2016 13:25
[2016-12-15] MEDS ORDERED: traMADol HCL 50 MG TAB PO ONE ×2 (13:30)
[2016-12-15 13:55] LABS: AUTOMATED NEUTROPHIL # 3.7 TH/MM3 (1.8-7.7); BASOPHIL # 0.1 TH/MM3 (0-0.2); BASOPHIL % 1.2 % (0.0-2.0); EOSINOPHIL # 0.2 TH/MM3 (0-0.4); EOSINOPHIL % 3.1 % (0.0-4.0); HEMATOCRIT 32.9 % (39.0-51.0); HEMOGLOBIN 11.2 GM/DL (13.0-17.0); LYMPH % 13.7 % (9.0-44.0); LYMPHOCYTE # 0.7 TH/MM3 (1.0-4.8); MEAN CELL VOLUME 100.9 FL (80.0-100.0); MEAN CORPUSCULAR HEMOGLOBIN 34.2 PG (27.0-34.0); MEAN CORPUSCULAR HGB CONC 33.9 % (32.0-36.0); MEAN PLATELET VOLUME 9.6 FL (7.0-11.0); MONO % 6.7 % (0.0-8.0); MONOCYTE # 0.3 TH/MM3 (0-0.9); NEUT % 75.3 % (16.0-70.0); PLATELET COUNT 86 TH/MM3 (150-450); RED BLOOD COUNT 3.26 MIL/MM3 (4.50-5.90); RED CELL DISTRIBUTION WIDTH 15.7 % (11.6-17.2); WHITE BLOOD COUNT 4.9 TH/MM3 (4.0-11.0)
[2016-12-15 14:04] LABS: PROTHROMBIN TIME - PATIENT 13.8 SEC (9.8-11.6)
[2016-12-15 14:05] LABS: INTERNATIONAL NORMALIZED RATIO 1.2 RATIO
[2016-12-15 14:13] LABS: BICARBONATE 20.4 MEQ/L (21.0-32.0); CALCIUM 7.9 MG/DL (8.5-10.1); CREATININE 0.91 MG/DL (0.60-1.30)
[2016-12-15 14:33] VITALS: BP 138/77; PULSE 82; RESP 20; TEMP 98; O2SAT 98
[2016-12-15] MEDS ORDERED: TRAM50TA PO ×2 (14:46)
[2016-12-15] MEDS ORDERED: FURO1TAB62 PO ×2 (14:46)
[2016-12-15] MEDS ORDERED: NADO1TAB16 PO ×2 (14:46)
[2016-12-15] MEDS ORDERED: METF500T PO ×2 (14:46)
[2016-12-15] MEDS ORDERED: XIFA550T4 PO ×2 (14:46)
[2016-12-15] MEDS ORDERED: POTA10CA PO ×2 (14:46)
[2016-12-15] MEDS ORDERED: ALDA50TA2 PO ×2 (14:46)
[2016-12-15] MEDS ORDERED: SPIRCAP INH ×2 (14:46)
--- NOTE | 2016-12-15 15:06 | RADRPT ---
EXAM DATE/TIME: 12/15/2016 14:20 [facility] COMPARISON: No previous studies available for comparison. INDICATIONS : Evaluate for ascites. MEDICAL HISTORY : Myocardial infarction. Hypercholesterolemia. Hypertension. COPD. Diabetes. Emphysema. Cirrhosis. ETO H. SURGICAL HISTORY : Tonsillectomy. Splenectomy. Colostomy and removal. ENCOUNTER: Subsequent ACUITY: 1 day PAIN SCORE: 7/10 LOCATION: Abdomen. AREA EVALUATED: Four quadrant. FINDINGS: Imaging of the abdomen and pelvis was performed to evaluate for ascites for possible paracentesis. O nly a small amount of ascites is noted within the abdomen. This is inadequate for safe paracentesis. CONCLUSION: Only a small amount of ascites within the abdomen which is inadequate for safe paracentesis. Jordan Aggarwal MD on December 15, 2016 at 15:03 Board Certified Radiologist. This report was verified electronically.
[2016-12-15 15:12] VITALS: BP 140/67
== END 2016-12-15 15:14 | disposition home or self-care (01) ==
LOC: NEPC 12:42
DX: K74.60 Unspecified cirrhosis of liver (principal); R10.9 Unspecified abdominal pain; E11.9 Type 2 diabetes mellitus without complications; J44.9 Chronic obstructive pulmonary disease, unspecified; Z72.0 Tobacco use
CPT/HCPCS: 76705; 80048; 85025; 85610; 85730; 99284

== ENCOUNTER 2016-12-18 15:28 | Emergency (ER) | payer OTHER, MEDICARE ==
[~2016-12-18] VITALS: Ht 180.3 cm; Wt 105.5 kg
[~2016-12-18 15:28] MED LIST changes: +ALDA50TA2 PO; +FURO1TAB62 PO; -GNP100TA3 PO; +NADO1TAB16 PO; +THIA100 PO; +TRAM50TA PO
[2016-12-18 15:30] VITALS: BP 148/81; PULSE 106; RESP 20; TEMP 98.6; O2SAT 95
[2016-12-18 16:24] VITALS: BP 132/78; PULSE 99; RESP 16; O2SAT 98
[2016-12-18 17:25] VITALS: RESP 18; O2SAT 98
[2016-12-18] MEDS ORDERED: MORPHINE SULFATE 4 MG/ML INJ IV PUSH ONE (17:30)
[2016-12-18] MEDS ORDERED: SODIUM CHLORIDE 0.9% FLUSH 10 ML FLUSH IV FLUSH PRN (17:30)
[2016-12-18] MEDS ORDERED: ONDANSETRON HCL 4 MG/2 ML VIAL IVP ONE (17:30)
[2016-12-18] MEDS ORDERED: FUROSEMIDE 40 MG/4 ML VIAL IV PUSH ONE (17:45)
[2016-12-18 17:51] VITALS: BP 110/62; PULSE 92; RESP 18; O2SAT 95
[2016-12-18 17:53] LABS: AUTOMATED NEUTROPHIL # 2.8 TH/MM3 (1.8-7.7); BASOPHIL # 0.1 TH/MM3 (0-0.2); BASOPHIL % 2.4 % (0.0-2.0); EOSINOPHIL # 0.3 TH/MM3 (0-0.4); EOSINOPHIL % 5.5 % (0.0-4.0); HEMATOCRIT 32.8 % (39.0-51.0); HEMOGLOBIN 11.4 GM/DL (13.0-17.0); LYMPH % 19.8 % (9.0-44.0); LYMPHOCYTE # 0.9 TH/MM3 (1.0-4.8); MEAN CELL VOLUME 99.2 FL (80.0-100.0); MEAN CORPUSCULAR HEMOGLOBIN 34.6 PG (27.0-34.0); MEAN CORPUSCULAR HGB CONC 34.9 % (32.0-36.0); MEAN PLATELET VOLUME 8.2 FL (7.0-11.0); MONO % 10.8 % (0.0-8.0); MONOCYTE # 0.5 TH/MM3 (0-0.9); NEUT % 61.5 % (16.0-70.0); PLATELET COUNT 72 TH/MM3 (150-450); RED BLOOD COUNT 3.31 MIL/MM3 (4.50-5.90); RED CELL DISTRIBUTION WIDTH 15.1 % (11.6-17.2); WHITE BLOOD COUNT 4.6 TH/MM3 (4.0-11.0)
--- NOTE | 2016-12-18 17:55 | PD ---
HPI Chief Complaint: Abdominal Pain Time Seen by Provider: 17:15 Travel History International Travel<30 days: No Contact w/Intl Traveler<30days: No Traveled to known affect area: No History of Present Illness HPI The patient is a 66-year-old male who presents to the emergency department for abdominal pain and swelling. The patient has a history of end- stage liver disease with cirrhosis and ascites. The patient has had a previous paracentesis in the past, November, with alleviation of his symptoms. He does note increasing edema and swelling to the abdomen as well as lower extremities. He does complain of increasing pain. He denies any nausea, vomiting, or diarrhea. The patient states he has been taking his medications as directed, however, his symptoms have persisted and progressed. The patient states he was seen in emergency department last week we had an ultrasound performed but there was not enough fluid to drain via paracentesis. The patient was evaluated by his primary physician at the [place] clinic, Dr. Han, who referred the patient back to the emergency department for evaluation for possible paracentesis. The patient denies any fever, chills, or sweats. PFSH Past Medical History Arthritis: Yes Asthma: No Anxiety: No Depression: No Heart Rhythm Problems: No Cancer: No Cardiovascular Problems: Yes High Cholesterol: No Chest Pain: No Congestive Heart Failure: No Cirrhosis: Yes COPD: Yes Cerebrovascular Accident: Yes Diabetes: Yes Patient Takes Glucophage: No Diminished Hearing: No Endocrine: Yes Gastrointestinal Disorders: Yes Genitourinary: Yes Hepatitis: Yes (C) Hiatal Hernia: Yes Hypertension: Yes Immune Disorder: No Implanted Vascular Access Dvce: No Musculoskeletal: No Neurologic: No Psychiatric: No Reproductive: No Respiratory: Yes Sleep Apnea: Yes Thyroid Disease: No Past Surgical History Abdominal Surgery: Yes ( hernia colon resection) Cardiac Surgery: No Ear Surgery: No Endocrine Surgery: Yes Eye Surgery: No Genitourinary Surgery: No Gynecologic Surgery: No Neurologic Surgery: No Oral Surgery: No Thoracic Surgery: No Tonsillectomy: Yes Other Surgery: Yes (SPLENECTOMY) Social History Alcohol Use: No (not for 2 months, prior heavy drinker) Tobacco Use: Yes (1 ppd) Substance Use: Yes Allergies-Medications (Allergen,Severity, Reaction): Coded Allergies: No Known Allergies (Unverified , 12/09/16) Reported Meds & Prescriptions Reported Meds & Active Scripts Active Lasix (Furosemide) 20 Mg Tab 20 Mg PO DAILY Aldactone (Spironolactone) 50 Mg Tab 50 Mg PO DAILY Corgard (Nadolol) 20 Mg Tab 20 Mg PO DAILY Tramadol (Tramadol HCl) 50 Mg Tab 50 Mg PO Q6H PRN Xifaxan (Rifaximin) 550 Mg Tab 550 Mg PO BID Potassium Chloride ER (Potassium Chloride) 10 Meq Cap 10 Meq PO DAILY 7 Days Metformin (Metformin HCl) 500 Mg Tab 500 Mg PO BIDPC With meals Gnp Vitamin B-1 (Thiamine HCl) 100 Mg Tab 100 Mg PO DAILY Reported Klonopin (Clonazepam) 1 Mg Tab 1 Mg PO BID [Bp Med] PO BID Review of Systems Except as stated in HPI: all other systems reviewed are Neg General / Constitutional: No: Fever Cardiovascular: No: Chest Pain or Discomfort Respiratory: No: Shortness of Breath Gastrointestinal: Positive: Abdominal Pain, No: Nausea, Vomiting Musculoskeletal: Positive: Edema Neurologic: No: Dizziness Physical Exam Narrative GENERAL: Awake, alert, pleasant 66-year-old male who appears his stated age and is in no acute respiratory distress. SKIN: Focused skin assessment warm/dry. HEAD: Atraumatic. Normocephalic. EYES: Pupils equal and round. No scleral icterus. No injection or drainage. ENT: No nasal bleeding or discharge. Mucous membranes pink and moist. NECK: Trachea midline. No JVD. CARDIOVASCULAR: Regular rate and rhythm. No murmur appreciated. RESPIRATORY: No accessory muscle use. Clear to auscultation. Breath sounds equal bilaterally. GASTROINTESTINAL: Abdomen obese, mild distention, edematous changes noted to the subcutaneous tissue and skin. MUSCULOSKELETAL: No obvious deformities. No clubbing. No cyanosis. Bilateral lower extremity pitting edema. NEUROLOGICAL: Awake and alert. No obvious cranial nerve deficits. Motor grossly within normal limits. Normal speech. PSYCHIATRIC: Appropriate mood and affect; insight and judgment normal. Data Data Last Documented VS Vital Signs Date Time Temp Pulse Resp B/P (MAP) Pulse Ox O2 Delivery O2 Flow Rate FiO2 12/18/16 17:51 92 18 110/62 (78) 95 Room Air 12/18/16 15:30 98.6 Orders Orders Complete Blood Count With Diff (12/18/16 17:23) Comprehensive Metabolic Panel (12/18/16 17:23) Lipase (12/18/16 17:23) Prothrombin Time / Inr (Pt) (12/18/16 17:23) Act Partial Throm Time (Ptt) (12/18/16 17:23) Iv Access Insert/Monitor (12/18/16 17:23) Ecg Monitoring (12/18/16 17:23) Oximetry (12/18/16 17:23) Morphine Inj (Morphine Inj) (12/18/16 17:30) Ondansetron Inj (Zofran Inj) (12/18/16 17:30) Sodium Chloride 0.9% Flush (Ns Flush) (12/18/16 17:30) Ed Poc Ultrasound (12/18/16 17:23) Furosemide Inj (Lasix Inj) (12/18/16 17:45) Labs Laboratory Tests Test 12/18/16 17:37 White Blood Count 4.6 TH/MM3 Red Blood Count 3.31 MIL/MM3 Hemoglobin 11.4 GM/DL Hematocrit 32.8 % Mean Corpuscular Volume 99.2 FL Mean Corpuscular Hemoglobin 34.6 PG Mean Corpuscular Hemoglobin Concent 34.9 % Red Cell Distribution Width 15.1 % Platelet Count 72 TH/MM3 Mean Platelet Volume 8.2 FL Neutrophils (%) (Auto) 61.5 % Lymphocytes (%) (Auto) 19.8 % Monocytes (%) (Auto) 10.8 % Eosinophils (%) (Auto) 5.5 % Basophils (%) (Auto) 2.4 % Neutrophils # (Auto) 2.8 TH/MM3 Lymphocytes # (Auto) 0.9 TH/MM3 Monocytes # (Auto) 0.5 TH/MM3 Eosinophils # (Auto) 0.3 TH/MM3 Basophils # (Auto) 0.1 TH/MM3 CBC Comment AUTO DIFF Prothrombin Time 13.9 SEC Prothromb Time International Ratio 1.2 RATIO Activated Partial Thromboplast Time 35.8 SEC Blood Urea Nitrogen 17 MG/DL Creatinine 0.95 MG/DL Random Glucose 91 MG/DL Total Protein 6.1 GM/DL Albumin 2.3 GM/DL Calcium Level 8.4 MG/DL Alkaline Phosphatase 215 U/L Aspartate Amino Transf (AST/SGOT) 194 U/L Alanine Aminotransferase (ALT/SGPT) 100 U/L Total Bilirubin 4.5 MG/DL Sodium Level 142 MEQ/L Potassium Level 4.0 MEQ/L Chloride Level 109 MEQ/L Carbon Dioxide Level 22.9 MEQ/L Anion Gap 10 MEQ/L Estimat Glomerular Filtration Rate 80 ML/MIN Lipase 302 U/L [facility] Medical Decision Making Medical Screen Exam Complete: Yes Emergency Medical Condition: Yes Medical Record Reviewed: Yes Interpretation(s) Laboratory Tests Test 12/18/16 17:37 White Blood Count 4.6 TH/MM3 Red Blood Count 3.31 MIL/MM3 Hemoglobin 11.4 GM/DL Hematocrit 32.8 % Mean Corpuscular Volume 99.2 FL Mean Corpuscular Hemoglobin 34.6 PG Mean Corpuscular Hemoglobin Concent 34.9 % Red Cell Distribution Width 15.1 % Platelet Count 72 TH/MM3 Mean Platelet Volume 8.2 FL Neutrophils (%) (Auto) 61.5 % Lymphocytes (%) (Auto) 19.8 % Monocytes (%) (Auto) 10.8 % Eosinophils (%) (Auto) 5.5 % Basophils (%) (Auto) 2.4 % Neutrophils # (Auto) 2.8 TH/MM3 Lymphocytes # (Auto) 0.9 TH/MM3 Monocytes # (Auto) 0.5 TH/MM3 Eosinophils # (Auto) 0.3 TH/MM3 Basophils # (Auto) 0.1 TH/MM3 CBC Comment AUTO DIFF Prothrombin Time 13.9 SEC Prothromb Time International Ratio 1.2 RATIO Activated Partial Thromboplast Time 35.8 SEC Blood Urea Nitrogen 17 MG/DL Creatinine 0.95 MG/DL Random Glucose 91 MG/DL Total Protein 6.1 GM/DL Albumin 2.3 GM/DL Calcium Level 8.4 MG/DL Alkaline Phosphatase 215 U/L Aspartate Amino Transf (AST/SGOT) 194 U/L Alanine Aminotransferase (ALT/SGPT) 100 U/L Total Bilirubin 4.5 MG/DL Sodium Level 142 MEQ/L Potassium Level 4.0 MEQ/L Chloride Level 109 MEQ/L Carbon Dioxide Level 22.9 MEQ/L Anion Gap 10 MEQ/L Estimat Glomerular Filtration Rate 80 ML/MIN Lipase 302 U/L Differential Diagnosis Differential diagnoses includes end-stage liver disease, cirrhosis, hyponatremia , hypoalbuminemia, chronic edema, ascites. Narrative Course IV was established, labs are drawn and sent, and the patient was placed on cardiac telemetry monitoring and continuous pulse oximetry monitoring. Bedside ultrasound was performed, the patient does have some mild fluid in the intra- abdominal cavity, however, there does not appear to be enough fluid for paracentesis. I had a discussion with the patient regarding outpatient follow- up at the [place] clinic as he will need to get established with a produce inspector perform outpatient paracentesis. I do not believe the patient is 23 hour observation or admission for his ascites as there is not enough fluid for drainage. The patient was administered Lasix 40 mg intravenously, morphine 4 mg intravenously, Zofran 4 mg intravenously. LFTs are mildly elevated, are chronic mildly elevated. Lipase is unremarkable. Patient is medically clear to be evaluated by his physician on an outpatient basis. Diagnosis Primary Impression: Liver cirrhosis Qualified Codes: K74.60 - Unspecified cirrhosis of liver Patient Instructions: General Instructions Additional Instructions: Follow-up with the [place] clinic. Return if symptoms worsen or progress. Elevate legs. Continue home medications as previously directed. Med/Other Pt SpecificInfo: No Change to Meds Disposition: 01 DISCHARGE HOME Condition: Stable Bulmaro Black MD Dec 18, 2016 17:55
[2016-12-18 18:03] LABS: INTERNATIONAL NORMALIZED RATIO 1.2 RATIO; PROTHROMBIN TIME - PATIENT 13.9 SEC (9.8-11.6)
[2016-12-18 18:14] LABS: ALBUMIN 2.3 GM/DL (3.4-5.0); ALT (GPT) 100 U/L (12-78); AST (GOT) 194 U/L (15-37); BICARBONATE 22.9 MEQ/L (21.0-32.0); BLOOD UREA NITROGEN 17 MG/DL (7-18); CALCIUM 8.4 MG/DL (8.5-10.1); CHLORIDE 109 MEQ/L (98-107); CREATININE 0.95 MG/DL (0.60-1.30); GLOMERULAR FILTRATION RATE 80 ML/MIN (>89); GLUCOSE,RANDOM 91 MG/DL (74-106); LIPASE 302 U/L (73-393); SODIUM (NA) 142 MEQ/L (136-145)
[2016-12-18 18:16] LABS: ALKALINE PHOSPHATASE 215 U/L (45-117); TOTAL BILIRUBIN ADULT 4.5 MG/DL (0.2-1.0); TOTAL PROTEIN 6.1 GM/DL (6.4-8.2)
== END 2016-12-18 19:58 | disposition home or self-care (01) ==
LOC: NEPE 15:28
DX: K74.60 Unspecified cirrhosis of liver (principal); K72.90 Hepatic failure, unspecified without coma; R18.8 Other ascites; J44.9 Chronic obstructive pulmonary disease, unspecified; E11.9 Type 2 diabetes mellitus without complications; I10 Essential (primary) hypertension; Z72.0 Tobacco use
CPT/HCPCS: 80053; 83690; 85025; 85610; 85730; 96374; 96375; 99285; J1940; J2270; J2405

== ENCOUNTER 2017-01-01 12:53 | Emergency (ER) | payer OTHER, MEDICARE ==
[~2017-01-01] VITALS: Ht 177.8 cm; Wt 105.0 kg
[~2017-01-01 12:53] MED LIST changes: -CEPH-460 PO; -SPIRCAP INH; -SYMB160A INH
[2017-01-01] MEDS ORDERED: IOHEXOL 350 MG/ML 10 ML VIAL (for RAD DIAG) IVCONTRAST ONE (12:54)
[2017-01-01 12:55] VITALS: BP 142/92; PULSE 91; RESP 15; TEMP 98.3; O2SAT 99
[2017-01-01] MEDS ORDERED: MORPHINE SULFATE 4 MG/ML INJ IV PUSH ONE ×2 (14:00→16:15)
[2017-01-01] MEDS ORDERED: SODIUM CHLORIDE 0.9% FLUSH 10 ML FLUSH IV FLUSH PRN (14:00)
[2017-01-01] MEDS ORDERED: ONDANSETRON HCL 4 MG/2 ML VIAL IVP ONE (14:00)
[2017-01-01 14:15] LABS: AUTOMATED NEUTROPHIL # 5.2 TH/MM3 (1.8-7.7); BASOPHIL # 0.1 TH/MM3 (0-0.2); BASOPHIL % 0.9 % (0.0-2.0); EOSINOPHIL # 0.1 TH/MM3 (0-0.4); EOSINOPHIL % 1.8 % (0.0-4.0); HEMATOCRIT 35.7 % (39.0-51.0); LYMPH % 10.2 % (9.0-44.0); LYMPHOCYTE # 0.7 TH/MM3 (1.0-4.8); MEAN CELL VOLUME 99.6 FL (80.0-100.0); MEAN CORPUSCULAR HEMOGLOBIN 33.9 PG (27.0-34.0); MEAN CORPUSCULAR HGB CONC 34.1 % (32.0-36.0); MONO % 9.6 % (0.0-8.0); NEUT % 77.5 % (16.0-70.0); PLATELET COUNT 63 TH/MM3 (150-450); RED BLOOD COUNT 3.59 MIL/MM3 (4.50-5.90); RED CELL DISTRIBUTION WIDTH 14.9 % (11.6-17.2); WHITE BLOOD COUNT 6.7 TH/MM3 (4.0-11.0)
[2017-01-01 14:18] LABS: HEMO FLAGS AUTO DIFF
[2017-01-01 14:22] LABS: APTT (PATIENT) 34.8 SEC (24.3-30.1); INTERNATIONAL NORMALIZED RATIO 1.2 RATIO; PROTHROMBIN TIME - PATIENT 13.6 SEC (9.8-11.6)
[2017-01-01 14:32] LABS: ALT (GPT) 72 U/L (12-78); ANION GAP 8 MEQ/L (5-15); AST (GOT) 116 U/L (15-37); BICARBONATE 23.2 MEQ/L (21.0-32.0); BLOOD UREA NITROGEN 16 MG/DL (7-18); CHLORIDE 110 MEQ/L (98-107); GLOMERULAR FILTRATION RATE 83 ML/MIN (>89); POTASSIUM 3.8 MEQ/L (3.5-5.1); SODIUM (NA) 141 MEQ/L (136-145)
[2017-01-01 14:34] LABS: ALKALINE PHOSPHATASE 184 U/L (45-117); TOTAL BILIRUBIN ADULT 6.5 MG/DL (0.2-1.0)
[2017-01-01 14:51] LABS: PLATELET ESTIMATE SMEAR LOW (NORMAL); PLATELET MORPHOLOGY NORMAL (NORMAL); SCAN/DIFF AUTO DIFF CONFIRMED
--- NOTE | 2017-01-01 15:07 | RADRPT ---
EXAM DATE/TIME: 01/01/2017 14:52 [facility] COMPARISON: CT ABDOMEN & PELVIS W CONTRAST, November 30, 2016, 17:24. INDICATIONS : Diffuse abdomen pain with swelling. IV CONTRAST: 96 cc Omnipaque 350 (iohexol) IV ORAL CONTRAST: No oral contrast ingested. RADIATION DOSE: 14.99 CTDIvol (mGy) MEDICAL HISTORY : Hypertension. Chronic obstructive pulmonary disease. Diabetes mellitus type 2.Hep C, CVA, Cardiac, Li magnolia failure. SURGICAL HISTORY : None. ENCOUNTER: Initial ACUITY: 1 day PAIN SCALE: 10/10 LOCATION: Bilateral upper quadrant TECHNIQUE: Volumetric scanning of the abdomen and pelvis was performed. Using automated exposure control and ad justment of the mA and/or kV according to patient size, radiation dose was kept as low as reasonably achievable to obtain optimal diagnostic quality images. DICOM format image data is available electro nically for review and comparison. FINDINGS: The limited portion of the lung base visualized is clear. The liver appears small and cirrhotic. The spleen is enlarged. There are varices within the retroperi toneum and the gastroesophageal junction. There is ascites throughout the upper abdomen. Findings wou ld be consistent with cirrhosis and portal hypertension. The appearance of the pancreas, adrenal glands and kidneys is within normal limits. The abdominal aor ta is normal caliber. There is no retroperitoneal lymphadenopathy. There is ascites diffusely throughout the pelvis. No iliac or inguinal adenopathy is seen. The loops of small large bowel are unremarkable. There are degenerative changes within the spine. CONCLUSION: 1. Cirrhotic appearing liver with splenomegaly, ascites and numerous varices. Findings are consistent with cirrhosis and portal hypertension. Sudhakar Perea MD on January 01, 2017 at 15:03 Board Certified Radiologist. This report was verified electronically.
[2017-01-01 15:19] VITALS: BP 137/79; PULSE 102; RESP 18; O2SAT 96
--- NOTE | 2017-01-01 15:51 | PD ---
HPI Chief Complaint: GI Complaint Time Seen by Provider: 13:32 Travel History International Travel<30 days: No Contact w/Intl Traveler<30days: No History of Present Illness HPI Patient is a 66 year old male who comes in complaining of abdominal pain. He has history of hepatitis and alcoholic cirrhosis. He says he has had his ascites drained in the past and feels it needs to be drained again. He says he has taken oxycodone in the past for pain, but he does not have any currently. He denies fever or chills. He denies nausea or vomiting. He says the pain has been going on for the past few days. He is having normal bowel movements. PFSH Past Medical History Arthritis: Yes Asthma: No Anxiety: No Depression: No Heart Rhythm Problems: No Cancer: No Cardiovascular Problems: Yes High Cholesterol: No Chest Pain: No Congestive Heart Failure: No Cirrhosis: Yes COPD: Yes Cerebrovascular Accident: Yes Diabetes: Yes Patient Takes Glucophage: Yes Diminished Hearing: No Endocrine: Yes Gastrointestinal Disorders: Yes Genitourinary: Yes Hepatitis: Yes (C) Hiatal Hernia: Yes Hypertension: Yes Immune Disorder: No Implanted Vascular Access Dvce: No Musculoskeletal: No Neurologic: No Psychiatric: No Reproductive: No Respiratory: Yes Myocardial Infarction: Yes Sleep Apnea: Yes Thyroid Disease: No Past Surgical History Abdominal Surgery: Yes ( hernia colon resection) Cardiac Surgery: No Ear Surgery: No Endocrine Surgery: Yes Eye Surgery: No Genitourinary Surgery: No Gynecologic Surgery: No Neurologic Surgery: No Oral Surgery: No Thoracic Surgery: No Tonsillectomy: Yes Other Surgery: Yes (SPLENECTOMY) Social History Alcohol Use: No (not for 2 months, prior heavy drinker) Tobacco Use: Yes (1 ppd) Substance Use: Yes Allergies-Medications (Allergen,Severity, Reaction): Coded Allergies: No Known Allergies (Unverified Allergy, Unknown, 01/01/17) Reported Meds & Prescriptions Reported Meds & Active Scripts Active Lasix (Furosemide) 20 Mg Tab 20 Mg PO DAILY Aldactone (Spironolactone) 50 Mg Tab 50 Mg PO DAILY Corgard (Nadolol) 20 Mg Tab 20 Mg PO DAILY Tramadol (Tramadol HCl) 50 Mg Tab 50 Mg PO Q6H PRN Xifaxan (Rifaximin) 550 Mg Tab 550 Mg PO BID Potassium Chloride ER (Potassium Chloride) 10 Meq Cap 10 Meq PO DAILY 7 Days Metformin (Metformin HCl) 500 Mg Tab 500 Mg PO BIDPC With meals Gnp Vitamin B-1 (Thiamine HCl) 100 Mg Tab 100 Mg PO DAILY Reported Klonopin (Clonazepam) 1 Mg Tab 1 Mg PO BID [Bp Med] PO BID Review of Systems Except as stated in HPI: all other systems reviewed are Neg General / Constitutional: No: Fever, Chills HENT: No: Headaches Cardiovascular: No: Chest Pain or Discomfort Respiratory: No: Shortness of Breath Gastrointestinal: Positive: Abdominal Pain, No: Vomiting Genitourinary: No: Dysuria Musculoskeletal: Positive: Edema, No: Myalgias Skin: No Rash, No Change in Pigmentation Neurologic: No: Weakness, Dizziness Physical Exam Narrative GENERAL: Awake and alert, in no acute distress. SKIN: Focused skin assessment warm/dry. HEAD: Atraumatic. Normocephalic. EYES: Pupils equal and round. No scleral icterus. No injection or drainage. ENT: Mucous membranes pink and moist. NECK: Trachea midline. No JVD. CARDIOVASCULAR: Regular rate and rhythm. No murmur appreciated. RESPIRATORY: No accessory muscle use. Clear to auscultation. Breath sounds equal bilaterally. GASTROINTESTINAL: Distended abdomen, mildly tender to palpation. No rebound or guarding. MUSCULOSKELETAL: No obvious deformities. No clubbing. No cyanosis. 1+ edema bilateral lower extremities. NEUROLOGICAL: Awake and alert. No obvious cranial nerve deficits. Motor grossly within normal limits. Normal speech. PSYCHIATRIC: Appropriate mood and affect; insight and judgment normal. Data Data Last Documented VS Vital Signs Date Time Temp Pulse Resp B/P (MAP) Pulse Ox O2 Delivery O2 Flow Rate FiO2 01/01/17 15:19 102 18 137/79 (98) 96 Room Air 01/01/17 12:55 98.3 Orders Orders Complete Blood Count With Diff (01/01/17 13:50) Comprehensive Metabolic Panel (01/01/17 13:50) Lipase (01/01/17 13:50) Prothrombin Time / Inr (Pt) (01/01/17 13:50) Act Partial Throm Time (Ptt) (01/01/17 13:50) Urinalysis - C+S If Indicated (01/01/17 13:50) Ct Abd/Pel W Iv Contrast(Rout) (01/01/17 13:50) Iv Access Insert/Monitor (01/01/17 13:50) Ecg Monitoring (01/01/17 13:50) Oximetry (01/01/17 13:50) Morphine Inj (Morphine Inj) (01/01/17 14:00) Ondansetron Inj (Zofran Inj) (01/01/17 14:00) Sodium Chloride 0.9% Flush (Ns Flush) (01/01/17 14:00) Iohexol 350 Inj (Omnipaque 350 Inj) (01/01/17 12:54) Labs Laboratory Tests Test 01/01/17 14:00 01/01/17 15:36 White Blood Count 6.7 TH/MM3 Red Blood Count 3.59 MIL/MM3 Hemoglobin 12.2 GM/DL Hematocrit 35.7 % Mean Corpuscular Volume 99.6 FL Mean Corpuscular Hemoglobin 33.9 PG Mean Corpuscular Hemoglobin Concent 34.1 % Red Cell Distribution Width 14.9 % Platelet Count 63 TH/MM3 Mean Platelet Volume 8.3 FL Neutrophils (%) (Auto) 77.5 % Lymphocytes (%) (Auto) 10.2 % Monocytes (%) (Auto) 9.6 % Eosinophils (%) (Auto) 1.8 % Basophils (%) (Auto) 0.9 % Neutrophils # (Auto) 5.2 TH/MM3 Lymphocytes # (Auto) 0.7 TH/MM3 Monocytes # (Auto) 0.6 TH/MM3 Eosinophils # (Auto) 0.1 TH/MM3 Basophils # (Auto) 0.1 TH/MM3 CBC Comment AUTO DIFF Differential Comment AUTO DIFF CONFIRMED Platelet Estimate LOW Platelet Morphology Comment NORMAL Prothrombin Time 13.6 SEC Prothromb Time International Ratio 1.2 RATIO Activated Partial Thromboplast Time 34.8 SEC Blood Urea Nitrogen 16 MG/DL Creatinine 0.92 MG/DL Random Glucose 90 MG/DL Total Protein 6.4 GM/DL Albumin 2.5 GM/DL Calcium Level 8.1 MG/DL Alkaline Phosphatase 184 U/L Aspartate Amino Transf (AST/SGOT) 116 U/L Alanine Aminotransferase (ALT/SGPT) 72 U/L Total Bilirubin 6.5 MG/DL Sodium Level 141 MEQ/L Potassium Level 3.8 MEQ/L Chloride Level 110 MEQ/L Carbon Dioxide Level 23.2 MEQ/L Anion Gap 8 MEQ/L Estimat Glomerular Filtration Rate 83 ML/MIN Lipase 267 U/L [facility] Medical Decision Making Medical Screen Exam Complete: Yes Emergency Medical Condition: Yes Medical Record Reviewed: Yes Differential Diagnosis Ascites vs colitis vs appendicitis Narrative Course Patient is a 66-year-old male comes in complaining of abdominal pain. Exam shows distended abdomen, mildly tender to palpation. IV established, labs sent. Labs show elevated total bilirubin and AST and ALT, are similar to levels they were in the past. Patient given morphine and Zofran. He reports feeling better. Order faxed to radiology for therapeutic paracentesis. They will call him to schedule. He is also given the phone number to call. Given a prescription for pain medicine. Advised follow-up with his doctors. Advised to return to the ED as needed for any worsening symptoms. Diagnosis Primary Impression: Liver cirrhosis Qualified Codes: K70.31 - Alcoholic cirrhosis of liver with ascites Additional Impression: Abdominal pain Qualified Codes: R10.84 - Generalized abdominal pain Patient Instructions: Ascites (ED), General Instructions Additional Instructions: Follow-up with interventional radiology for paracentesis. They should call you to schedule the paracentesis, however if he needs to call them, the phone number is [phone]. Take pain medicine as needed. Follow-up with your doctors. Return to the ED as needed for any worsening symptoms. Scripts Oxycodone (Oxycodone) 5 Mg Cap 5 MG PO Q6H Y for PAIN, #12 CAP 0 Refills Prov: Bhargavi Hollingsworth MD 01/01/17 Disposition: 01 DISCHARGE HOME Condition: Stable Bhargavi Hollingsworth MD Jan 01, 2017 15:50
[2017-01-01 15:59] LABS: BLOOD, URINE SMALL (NEG); GLUCOSE,URINE NEG (NEG); KETONE, URINE NEG (NEG); NITRITE,URINE NEG (NEG); PH, URINE 5.5 (5.0-8.5)
[2017-01-01 16:03] LABS: URINE COLOR AMBER (YELLW/STRAW)
[2017-01-01 16:04] LABS: MUCUS URINE FEW /lpf (OCC); WBC, URINE 0-2 /hpf (0-5)
[2017-01-01] MEDS ORDERED: OXYC1CAP PO (16:04)
[2017-01-01 16:05] LABS: BACTERIA, URINE OCC /hpf; COMMENT (UR) CULT NOT INDICATED; CULTURE IF INDICATED CULT NOT INDICATED; SQUAMOUS EPITHELIAL CELL URINE 0-5 /hpf (0-5)
[2017-01-01 16:41] VITALS: BP 123/63
== END 2017-01-01 17:00 | disposition home or self-care (01) ==
LOC: NEPC 12:53
DX: K70.31 Alcoholic cirrhosis of liver with ascites (principal); R10.84 Generalized abdominal pain; E11.9 Type 2 diabetes mellitus without complications; I10 Essential (primary) hypertension; G47.30 Sleep apnea, unspecified; I25.2 Old myocardial infarction; F17.200 Nicotine dependence, unspecified, uncomplicated; Z79.84 Long term (current) use of oral hypoglycemic drugs; Z87.39 Personal history of other diseases of the musculoskeletal system and connective tissue; Z86.79 Personal history of other diseases of the circulatory system; Z87.09 Personal history of other diseases of the respiratory system; Z87.19 Personal history of other diseases of the digestive system; Z86.19 Personal history of other infectious and parasitic diseases
CPT/HCPCS: 74177; 80053; 81001; 83690; 85025; 85610; 85730; 96374; 96375; 96376; 99285; J2270; J2405; Q9967

== ENCOUNTER 2017-01-15 03:38 | Inpatient (IN) | payer OTHER, MEDICARE ==
[~2017-01-15] VITALS: Ht 180.3 cm; Wt 115.0 kg
[2017-01-15] VITALS (32 sets, daily range): BP systolic 72–118; BP diastolic 43–65; PULSE 102–127; RESP 14–34; TEMP 96.5–98.6; O2SAT 88–100
[~2017-01-15 03:38] MED LIST changes: +OXYC1CAP PO
[2017-01-15] MEDS ORDERED: MORPHINE SULFATE 2 MG/ML INJ IV PUSH ONE ×2 (04:45→07:00)
[2017-01-15] MEDS ORDERED: ONDANSETRON HCL 4 MG/2 ML VIAL IV PUSH ONE (04:45)
[2017-01-15 05:11] LABS: HEMATOCRIT 34.2 % (39.0-51.0); MEAN CELL VOLUME 100.2 FL (80.0-100.0); MEAN CORPUSCULAR HEMOGLOBIN 33.4 PG (27.0-34.0); MEAN CORPUSCULAR HGB CONC 33.3 % (32.0-36.0); PLATELET COUNT 39 TH/MM3 (150-450); RED BLOOD COUNT 3.42 MIL/MM3 (4.50-5.90); RED CELL DISTRIBUTION WIDTH 15.5 % (11.6-17.2); WHITE BLOOD COUNT 0.9 TH/MM3 (4.0-11.0)
--- NOTE | 2017-01-15 05:25 | RADRPT ---
EXAM DATE/TIME: 01/15/2017 05:01 [facility] COMPARISON: CHEST SINGLE AP, November 30, 2016, 10:12. INDICATIONS : Shortness of breath. MEDICAL HISTORY : Hypertension. Chronic obstructive pulmonary disease. Diabetes mellitus type 2.Hep C, CVA.Cardiac, Mindi er failure SURGICAL HISTORY : None. ENCOUNTER: Initial ACUITY: 2 days PAIN SCORE: 10/10 LOCATION: Bilateral chest FINDINGS: Portable AP view of the chest demonstrates a normal-sized cardiac silhouette. No effusion, consolidat ion, or pneumothorax is visualized. Lungs are inflated with bibasilar opacity. The bones and soft tis sues demonstrate no acute abnormality. CONCLUSION: Mild bibasilar opacity likely represents atelectasis given the underinflation. Otherwise, no acute fi nding is identified. Alberto Singh MD on January 15, 2017 at 5:23 Board Certified Radiologist. This report was verified electronically.
[2017-01-15 05:32] LABS: ALKALINE PHOSPHATASE 83 U/L (45-117)
[2017-01-15 05:34] LABS: ALT (GPT) 58 U/L (12-78); ANION GAP 16 MEQ/L (5-15); AST (GOT) 107 U/L (15-37); BICARBONATE 15.2 MEQ/L (21.0-32.0); BLOOD UREA NITROGEN 30 MG/DL (7-18); CHLORIDE 103 MEQ/L (98-107); GLOMERULAR FILTRATION RATE 28 ML/MIN (>89); POTASSIUM 3.6 MEQ/L (3.5-5.1); SODIUM (NA) 134 MEQ/L (136-145); TOTAL BILIRUBIN ADULT 14.9 MG/DL (0.2-1.0)
[2017-01-15 05:45] LABS: HEMO FLAGS AUTO DIFF
[2017-01-15] MEDS ORDERED: PIPERACIL-TAZO 3.375 GM PREMIX 50 ML IV ONE (05:45)
[2017-01-15] MEDS ORDERED: VANCOMYCIN INJ 1,000 MG in SODIUM CHLOR 0.9% 250 ML INJ 250 ML IV ONE (05:45)
[2017-01-15] MEDS ORDERED: SODIUM CHLOR 0.9% 1000 ML INJ 1,000 ML IV ONE ×3 (05:45→06:45)
[2017-01-15 05:50] LABS: BANDS 8 % (0-6); METAMYELOCYTES 12 % (0-1); MYELOCYTES 1 % (0-0); NEUTROPHIL # MANUAL DIFF 0.7 TH/MM3 (1.8-7.7); POLYS (SEG NEUTROPHILS) 50 % (16-70); PROMYELOCYTES 2 % (0-0); WBC DIFF SAMPLE 100
[2017-01-15 05:51] LABS: SCAN/DIFF FINAL DIFF MANUAL
--- NOTE | 2017-01-15 06:23 | PD ---
HPI Chief Complaint: Abdominal Pain Time Seen by Provider: 04:01 Travel History International Travel<30 days: No Contact w/Intl Traveler<30days: No Traveled to known affect area: No History of Present Illness HPI Patient is a 66-year-old male with a history of liver disease and has had multiple paracentesis to drain fluid off from peritoneal cavity . he said only 2 days ago he had over 7 L drawn off. He is coming in because he is having shortness of breath and abdominal pain.. he is very jaundiced in appearance and his abdomen is distended with ascites . his skin is very yellow he is breathing rapidly and increased respiratory rate and saying he is having difficulty breathing. He also reports pain in abdomen. He has End stage liver disease. PFSH Past Medical History Arthritis: Yes Asthma: No Anxiety: No Depression: No Heart Rhythm Problems: No Cancer: No Cardiovascular Problems: Yes High Cholesterol: No Chest Pain: No Congestive Heart Failure: No Cirrhosis: Yes COPD: Yes Cerebrovascular Accident: Yes Diabetes: Yes Patient Takes Glucophage: Yes (01/14/17) Diminished Hearing: No Endocrine: Yes Gastrointestinal Disorders: Yes Genitourinary: Yes Hepatitis: Yes (C) Hiatal Hernia: Yes Hypertension: Yes Immune Disorder: No Implanted Vascular Access Dvce: No Musculoskeletal: No Neurologic: No Psychiatric: No Reproductive: No Respiratory: Yes Myocardial Infarction: Yes Sleep Apnea: Yes Thyroid Disease: No Past Surgical History Abdominal Surgery: Yes ( hernia colon resection) Cardiac Surgery: No Ear Surgery: No Endocrine Surgery: Yes Eye Surgery: No Genitourinary Surgery: No Gynecologic Surgery: No Neurologic Surgery: No Oral Surgery: No Thoracic Surgery: No Tonsillectomy: Yes Other Surgery: Yes (SPLENECTOMY, COLOSTOMY, RT FOOT) Social History Alcohol Use: No (HX OF DRINKING) Tobacco Use: Yes (OCCASIONALLY) Substance Use: Yes Allergies-Medications (Allergen,Severity, Reaction): Coded Allergies: No Known Allergies (Unverified Allergy, Unknown, 01/15/17) Reported Meds & Prescriptions Reported Meds & Active Scripts Active Oxycodone (Oxycodone HCl) 5 Mg Cap 5 Mg PO Q6H PRN Corgard (Nadolol) 20 Mg Tab 20 Mg PO DAILY Xifaxan (Rifaximin) 550 Mg Tab 550 Mg PO BID Metformin (Metformin HCl) 500 Mg Tab 500 Mg PO BIDPC With meals Gnp Vitamin B-1 (Thiamine HCl) 100 Mg Tab 100 Mg PO DAILY Reported Klonopin (Clonazepam) 1 Mg Tab 1 Mg PO BID [Bp Med] PO BID Review of Systems Except as stated in HPI: all other systems reviewed are Neg Respiratory: Positive: Cough, Shortness of Breath Gastrointestinal: Positive: Abdominal Pain Physical Exam Narrative GENERAL: Patient is obviously jaundice with increased respiratory rate obviously distended abdomen from ascites SKIN: Warm and dry. Very yellow jaundice skin diffuse HEAD: Atraumatic. Normocephalic. EYES: Pupils equal and round. No scleral icterus. No injection or drainage. ENT: No nasal bleeding or discharge. Mucous membranes pink and moist. NECK: Trachea midline. No JVD. CARDIOVASCULAR: Regular rate and rhythm. RESPIRATORY: Decreased breath sounds bases as well as increased respiratory rate GASTROINTESTINAL: Abdomen very distended . Hepatic and splenic margins not palpable. MUSCULOSKELETAL: Extremities without clubbing, cyanosis, or edema. No obvious deformities. NEUROLOGICAL: Awake and alert. No obvious cranial nerve deficits. . PSYCHIATRIC: Appropriate mood and affect; insight and judgment normal. Data Data Last Documented VS Vital Signs Date Time Temp Pulse Resp B/P (MAP) Pulse Ox O2 Delivery O2 Flow Rate FiO2 01/15/17 06:38 102 20 94/52 (66) 94 Nasal Cannula 3.00 01/15/17 03:41 98.1 Orders Orders Ammonia (01/15/17 04:34) Lactic Acid (01/15/17 04:34) Complete Blood Count With Diff (01/15/17 04:34) Comprehensive Metabolic Panel (01/15/17 04:34) Urinalysis - C+S If Indicated (01/15/17 04:34) Morphine Inj (Morphine Inj) (01/15/17 04:45) Ondansetron Inj (Zofran Inj) (01/15/17 04:45) Chest, Single Ap (01/15/17 ) Piperacil-Tazo 3.375 Gm Premix (Zosyn 3. (01/15/17 05:45) Vancomycin Inj (Vancomycin Inj) (01/15/17 05:45) Sodium Chlor 0.9% 1000 Ml Inj (Ns 1000 M (01/15/17 05:45) Sodium Chlor 0.9% 1000 Ml Inj (Ns 1000 M (01/15/17 05:45) Clonazepam (Klonopin) (01/15/17 09:00) Oxycodone (Roxicodone) (01/15/17 06:45) Rifaximin (Xifaxan) (01/15/17 09:00) Spironolactone (Aldactone) (01/15/17 09:00) Thiamine (Vit B1) (Vitamin B1) (01/15/17 09:00) Dopamine Inj Premix (Dopamine Inj Premix (01/15/17 06:45) Phenylephrine Inj (Neosynephrine Inj) (01/15/17 06:45) Terbutaline Inj (Brethine Inj) (01/15/17 06:45) Sodium Chlor 0.9% 1000 Ml Inj (Ns 1000 M (01/15/17 06:45) Lactic Acid (01/15/17 12:40) Lactic Acid (01/15/17 18:40) Lactic Acid (01/16/17 00:40) Piperacil-Tazo 3.375 Gm Premix (Zosyn 3. (01/15/17 12:00) Vancomycin Consult Pharmacy (Vancomycin (01/15/17 06:45) Blood Culture (01/15/17 06:40) Albumin 5% Inj (Albumin 5% Inj) (01/15/17 06:45) Us Abdomen Complete (01/15/17 ) Urine For Eosinophils (01/15/17 06:42) Sodium, Random Urine (01/15/17 06:42) Creatinine, Random Urine (01/15/17 06:42) Admit Order (Ed Use Only) (01/15/17 06:43) Admit To Inpatient (01/15/17 ) Code Status (01/15/17 06:44) Vital Signs (Adult) HERON.Q1H (01/15/17 06:44) Activity Bed Rest (01/15/17 06:44) Elevate Head Of Bed (01/15/17 06:44) Neuro Checks . ORDERED (01/15/17 06:44) Intake + Output Q1H (01/15/17 06:44) Bedside Glucose HERON.BGM (01/15/17 06:44) Diet Npo (01/15/17 Breakfast) Sodium Chlor 0.9% 1000 Ml Inj (Ns 1000 M (01/15/17 06:44) Sodium Chloride 0.9% Flush (Ns Flush) (01/15/17 06:45) Sodium Chloride 0.9% Flush (Ns Flush) (01/15/17 09:00) Famotidine Inj (Pepcid Inj) (01/15/17 09:00) Ondansetron Inj (Zofran Inj) (01/15/17 06:45) Albuterol Neb (Albuterol Neb) (01/15/17 06:45) Complete Blood Count With Diff (01/16/17 04:00) Comprehensive Metabolic Panel (01/16/17 04:00) Act Partial Throm Time (Ptt) (01/16/17 04:00) Prothrombin Time / Inr (Pt) (01/16/17 04:00) Magnesium (Mg) (01/16/17 04:00) Phosphorus (Po4) (01/16/17 04:00) Ammonia (01/16/17 06:00) Electrocardiogram (01/15/17 ) Resp Incentive Spirometry (01/15/17 ) Resp Oxygen Edwin C Titrat 1-4 L (01/15/17 ) Investment Fund Manager / Telemetry HERON.Q8H (01/15/17 06:44) Scd Bilateral/Knee High HERON.BID (01/15/17 06:44) ^ Initiate Protocol (01/15/17 06:44) Instruction (01/15/17 06:44) [facility] [place] Nursing Information (01/15/17 06:45) Chlorhexidine 2% Cloth (Chlorhexidine 2% (01/16/17 04:00) Chlorhexidine 2% Cloth (Chlorhexidine 2% (01/15/17 06:45) Mrsa Pcr Surveillance (01/15/17 06:44) Docusate Sodium-Senna (Brenda-Colace) (01/15/17 09:00) Magnesium Hydroxide Liq (Milk Of Magnesi (01/15/17 06:45) Sennosides (Senokot) (01/15/17 06:45) Bisacodyl Supp (Dulcolax Supp) (01/15/17 06:45) Lactulose Liq (Lactulose Liq) (01/15/17 06:45) Inpatient Certification (01/15/17 ) Labs Laboratory Tests Test 01/15/17 04:41 White Blood Count 0.9 TH/MM3 Red Blood Count 3.42 MIL/MM3 Hemoglobin 11.4 GM/DL Hematocrit 34.2 % Mean Corpuscular Volume 100.2 FL Mean Corpuscular Hemoglobin 33.4 PG Mean Corpuscular Hemoglobin Concent 33.3 % Red Cell Distribution Width 15.5 % Platelet Count 39 TH/MM3 Mean Platelet Volume 9.3 FL CBC Comment AUTO DIFF Differential Total Cells Counted 100 Neutrophils % (Manual) 50 % Band Neutrophils % 8 % Lymphocytes % 15 % Monocytes % 12 % Neutrophils # (Manual) 0.7 TH/MM3 Metamyelocytes 12 % Myelocytes 1 % Promyelocytes 2 % Differential Comment FINAL DIFF MANUAL Blood Urea Nitrogen 30 MG/DL Creatinine 2.33 MG/DL Random Glucose 53 MG/DL Total Protein 5.0 GM/DL Albumin 2.0 GM/DL Calcium Level 7.8 MG/DL Alkaline Phosphatase 83 U/L Aspartate Amino Transf (AST/SGOT) 107 U/L Alanine Aminotransferase (ALT/SGPT) 58 U/L Total Bilirubin 14.9 MG/DL Sodium Level 134 MEQ/L Potassium Level 3.6 MEQ/L Chloride Level 103 MEQ/L Carbon Dioxide Level 15.2 MEQ/L Anion Gap 16 MEQ/L Estimat Glomerular Filtration Rate 28 ML/MIN Lactic Acid Level 9.3 mmol/L Ammonia 29 MCMOL/L Lactate Dehydrogenase 246 U/L MDM Medical Decision Making Medical Screen Exam Complete: Yes Emergency Medical Condition: Yes Differential Diagnosis Jaundice do to hepatic insufficiency and chronic liver disease versus pneumonia encephalopathy versus pneumonia versus mechanical compression of his diaphragms increasing his decreased breath sounds Narrative Course Patient is increased respiratory rate secondary to pneumonia as well as the mechanical compression of his diaphragms from his ascites patient is obviously jaundiced chronic liver disease cirrhosis. 2 L of fluid are given x-ray shows most likely interstitial disease in the bases of bilaterally and patient is given Vanco and Zosyn , this will also cover his risk of SBP ,,,2 L of fluid stabilize his BP and dopamine is ready bedside. he has a lactic acid of 9 will be admitted to the ICU Critical Care Narrative critical care time 100 min , Fluid resusitation , The search for infective source ==Vanco Zosyn for possible PNA vs SBP and admit after 2 hrs in ED monitoring and searching for pathology to treat and resusitate . Then to ICU. Ordered dopamine ready if 3 liters NS dont elevate his BP above 100sbp Diagnosis Primary Impression: Pneumonia Qualified Codes: J18.9 - Pneumonia, unspecified organism Additional Impression: Peritonitis, spontaneous bacterial Admitting Information Admitting Physician Requests: Admit Dimitri San MD Jan 15, 2017 06:23
[2017-01-15] MEDS ORDERED: SODIUM CHLOR 0.9% 1000 ML INJ 1,000 ML IV SCH (06:44)
[2017-01-15] MEDS ORDERED: CHLORHEXIDINE GLUCONATE 2 % 1 PACK (2 CLOTHS) TOP PRN (06:45)
[2017-01-15] MEDS ORDERED: SENNOSIDES 8.6 MG TAB PO PRN (06:45)
[2017-01-15] MEDS ORDERED: SODIUM CHLORIDE 0.9% FLUSH 10 ML FLUSH IV FLUSH PRN ×2 (06:45→11:15)
[2017-01-15] MEDS ORDERED: BISACODYL 10 MG SUPP RECTAL PRN (06:45)
[2017-01-15] MEDS ORDERED: ONDANSETRON HCL 4 MG/2 ML VIAL IV PUSH PRN (06:45)
[2017-01-15] MEDS: ALBUMIN 5% INJ 500 ML IV ONE ×2 (06:45→13:12)
[2017-01-15] MEDS ORDERED: RESP: ALBUTEROL 2.5 MG/3 ML NEB (PRN) INH (06:45)
[2017-01-15] MEDS ORDERED: MISCELLANEOUS NURSING INFORMATION XX SCH (06:45)
[2017-01-15] MEDS ORDERED: LACTULOSE SYRUP 20 GM/30 ML CUP PO PRN (06:45)
[2017-01-15] MEDS ORDERED: TERBUTALINE INJ 1 MG/ML AMP SQ PRN ×2 (06:45→14:45)
[2017-01-15] MEDS ORDERED: DOPamine INJ PREMIX 500 ML IV PRN (06:45)
[2017-01-15] MEDS ORDERED: Vancomycin Consult Pharmacy 1 EA OTHER SCH (06:45)
[2017-01-15] MEDS ORDERED: MAGNESIUM HYDROXIDE SUSP 30 ML CUP PO PRN (06:45)
[2017-01-15] MEDS ORDERED: FAMOTIDINE 20 MG/2 ML VIAL IV PUSH SCH (09:00)
[2017-01-15] MEDS ORDERED: SPIRONOLACTONE 50 MG TAB PO SCH (09:00)
[2017-01-15] MEDS: DOCUSATE SODIUM 50 MG/SENNA 8.6 MG TAB PO SCH ×2 (09:00→20:56)
[2017-01-15] MEDS ORDERED: clonazePAM 1 MG TAB PO SCH (09:00)
[2017-01-15] MEDS ORDERED: SODIUM BICARBONATE 8.4% INJ 50 MEQ/50 ML SYR ONE (09:08)
[2017-01-15] MEDS ORDERED: SODIUM BICARBONATE 8.4% INJ 50 MEQ/50 ML SYR IV PUSH STA ×2 (09:13→09:17)
[2017-01-15] MEDS ORDERED: SODIUM CHLOR 0.9% 250 ML INJ 250 ML IV ONE (09:15)
[2017-01-15] MEDS ORDERED: SODIUM BICARBONATE 8.4% INJ 150 MEQ in DEXTROSE 5% IN WATE 1000ML INJ 1,000 ML IV SCH ×2 (09:15)
--- NOTE | 2017-01-15 09:25 | HHI.HP ---
[facility] Service Critical Care Medicine Primary Care Physician [facility] Admission Diagnosis SEPSIS PNA LIVER FAILURE Diagnosis: (1) Severe sepsis with acute organ dysfunction Diagnosis: Principal (2) Respiratory failure Diagnosis: Principal (3) Lactic acidosis Diagnosis: Principal (4) Gastroesophageal reflux disease Diagnosis: Secondary (5) MILLY (obstructive sleep apnea) Diagnosis: Secondary (6) History of CVA (cerebrovascular accident) Diagnosis: Secondary (7) History of hypertension Diagnosis: Secondary (8) Hypoalbuminemia Diagnosis: Secondary (9) Acute kidney injury Diagnosis: Principal (10) Diabetes mellitus Diagnosis: Secondary (11) Macrocytic anemia Diagnosis: Principal (12) Leukopenia Diagnosis: Principal (13) Hepatitis B Diagnosis: Secondary (14) Total bilirubin, elevated Diagnosis: Principal (15) Abdominal pain Diagnosis: Principal (16) Liver cirrhosis Diagnosis: Principal (17) Cellulitis Diagnosis: Principal Chief Complaint: Abdominal pain and shortness of breath Travel History International Travel<30 Days: No Contact w/Intl Traveler <30 Da: No Traveled to Known Affected Are: No Sepsis Criteria SIRS Criteria (2 or more): Heart rate over 90, RR > 20 or PaCO2 < 32 Sepsis Criteria (SIRS+source): Infect source susp/known Severe Sepsis (+one): Lactate >2, Acute Oliguria/Renal Failure Septic Shock Criteria: Lactic acid >=4 Multiple Organ Dysfunction Syn: Evidence -2 organs failing Criteria Outcome: Meets multiple organ dys. criteria History of Present Illness 66-year-old male. Date of admission 01/15/2017. Past medical history includes hepatitis B, liver cirrhosis likely alcoholic, COPD, coronary disease, hypertension, dyslipidemia, CVA history, MILLY, gastric reflux disease, EtOH and prior tobaccoism., He presents to [place] with a recent history of multiple paracentesis to drain fluid off he said only 2 days ago he had over 7 L drawn off. He presents today secondary to having shortness of breath and generalized abdominal pain he is very jaundiced in appearance and his abdomen is distended with ascites his skin is very yellow he is breathing and increased respiratory rate and saying he is having difficulty breathing Patient is a 63 L normal saline due to hypotension. Received 1 dose of vancomycin and piperacillin/tazobactam ED. Lactate elevated at 9. Patient has a leukopenia 0.9. Acute kidney injury 2.3 baseline is normal. Patient was transferred to the ICU. He is transferred from nasal cannula BiPAP due to acute respiratory failure. Patient had 5.2 L of brownish yellow cloudy ascitic fluid drained by Dr. Rosa ABG revealed significant metabolic/ respiratory acidosis. He received multiple ampules of bicarbonate. Due to underlying hypertension a central line and arterial line was placed. Review of Systems ROS Limitations: Altered Mental Status Past Family Social History Allergies: Coded Allergies: No Known Allergies (Unverified Allergy, Unknown, 01/15/17) Past Medical History Generalized anxiety disorder Asthma COPD Diabetes mellitus type 2 Coronary artery disease Hypertension Dyslipidemia History of CVA Obstructive sleep apnea Hiatal hernia Gastroesophageal reflux disease History of hepatitis B EtOH use Prior tobaccoism Past Surgical History History of T&A Hernia repair Colon Resection 1999 and reversed 2013 History of splenectomy - which is false because he has a spleen on ultrasound Right foot Reported Medications Oxycodone (Oxycodone HCl) 5 Mg Cap 5 Mg PO Q6H PRN Aldactone (Spironolactone) 50 Mg Tab 50 Mg PO DAILY Corgard (Nadolol) 20 Mg Tab 20 Mg PO DAILY Xifaxan (Rifaximin) 550 Mg Tab 550 Mg PO BID Metformin (Metformin HCl) 500 Mg Tab 500 Mg PO BIDPC With meals Gnp Vitamin B-1 (Thiamine HCl) 100 Mg Tab 100 Mg PO DAILY Reported Klonopin (Clonazepam) 1 Mg Tab 1 Mg PO BID [Bp Med] PO BID Active Ordered Medications Reviewed in EMR Family History Grandmother with diabetes Social History 40 year tobacco history. Allegedly quit 2015. one -2 beers daily. Drinking more recently. Denies illicit drug use Physical Exam Vital Signs Vital Signs Date Time Temp Pulse Resp B/P (MAP) Pulse Ox O2 Delivery O2 Flow Rate FiO2 01/15/17 09:05 100 50 01/15/17 08:40 01/15/17 06:50 94 Nasal Cannula 4.00 01/15/17 06:48 109 18 97/53 (68) 01/15/17 06:38 102 20 94/52 (66) 94 Nasal Cannula 3.00 01/15/17 06:06 90/55 (67) 01/15/17 06:01 111 18 84/46 (59) 94 Nasal Cannula 3.00 01/15/17 05:54 109 18 72/43 (53) 94 Nasal Cannula 3.00 01/15/17 05:17 110 18 84/47 (59) 94 Nasal Cannula 3.00 01/15/17 03:50 Nasal Cannula 3.00 01/15/17 03:44 24 01/15/17 03:41 98.1 114 24 103/51 (68) 94 Physical Exam GENERAL: This is a 66-year-old male, critically ill currently on BiPAP SKIN: Cool and dry. Multiple tattoos bilateral upper and lower extremities HEAD: Atraumatic. Normocephalic. EYES: Pupils equal and round about 3 mm bilaterally and reactive. + scleral icterus. No injection or drainage. ENT: No nasal bleeding or discharge. Mucous membranes pink and moist. NECK: Trachea midline. No JVD. CARDIOVASCULAR: Tachycardic, RR. S1, S2. No S4. RESPIRATORY: Diminished breath sounds throughout. Positive end extremity wheezes GASTROINTESTINAL: Abdomen distended and protuberant.. Supraumbilical to periumbilical scar from prior surgeries well-healed.. Umbilical hernia. Usable Erythema noted in the bilateral lower quadrants MUSCULOSKELETAL: Extremities 2+ edema. Anasarca. No obvious deformities. NEUROLOGICAL: Awake and alert. No obvious cranial nerve deficits. Motor grossly within normal limits. Five out of 5 muscle strength in the arms and legs. Normal speech Laboratory Laboratory Tests Test 01/15/17 04:41 01/15/17 07:08 White Blood Count 0.9 Red Blood Count 3.42 Hemoglobin 11.4 Hematocrit 34.2 Mean Corpuscular Volume 100.2 Mean Corpuscular Hemoglobin 33.4 Mean Corpuscular Hemoglobin Concent 33.3 Red Cell Distribution Width 15.5 Platelet Count 39 Mean Platelet Volume 9.3 CBC Comment AUTO DIFF Differential Total Cells Counted 100 Neutrophils % (Manual) 50 Band Neutrophils % 8 Lymphocytes % 15 Monocytes % 12 Neutrophils # (Manual) 0.7 Metamyelocytes 12 Myelocytes 1 Promyelocytes 2 Differential Comment FINAL DIFF MANUAL Blood Urea Nitrogen 30 Creatinine 2.33 Random Glucose 53 Total Protein 5.0 Albumin 2.0 Calcium Level 7.8 Alkaline Phosphatase 83 Aspartate Amino Transf (AST/SGOT) 107 Alanine Aminotransferase (ALT/SGPT) 58 Total Bilirubin 14.9 Sodium Level 134 Potassium Level 3.6 Chloride Level 103 Carbon Dioxide Level 15.2 Anion Gap 16 Estimat Glomerular Filtration Rate 28 Lactic Acid Level 9.3 8.9 Ammonia 29 Date/Time Source Procedure Growth Status 01/15/17 07:05 Blood Peripheral Aerobic Blood Culture Pending Received 01/15/17 07:05 Blood Peripheral Anaerobic Blood Culture Pending Received Result Diagram: 01/15/17 0441 01/15/17 0441 Imaging Last Impressions Chest X-Ray 01/15/17 0000 Signed Impressions: Service Date/Time: Sunday, January 15, 2017 05:01 - CONCLUSION: Mild bibasilar opacity likely represents atelectasis given the underinflation. Otherwise, no acute finding is identified. MD Jason Jacobo VTE Risk Assessment Jason VTE Risk Assessment: Mod/High Risk (score >= 2) Caprini Risk Assessment Model Point Value = 1 Point Value = 2 Point Value = 3 Point Value = 5 Age 41-60 Minor surgery BMI > 25 kg/m2 Swollen legs Varicose veins or History of unexplained or recurrent spontaneous Oral contraceptives or hormone replacement Sepsis (< 1 month) Serious lung disease, including pneumonia (< 1 month) Abnormal pulmonary function Acute myocardial infarction Congestive heart failure (< 1 month) History of inflammatory bowel disease Medical patient at bed rest Age 61-74 Arthroscopic surgery Major open surgery (> 45 min) Laparoscopic surgery (> 45 min) Malignancy Confined to bed (> 72 hours) Immobilizing plaster cast Central venous access Age >= 75 History of VTE Family history of VTE Factor V Leiden Prothrombin [id number] Lupus anticoagulant Anticardiolipin antibodies Elevated serum homocysteine Heparin-induced thrombocytopenia Other congenital or acquired thrombophilia Stroke (< 1 month) Elective arthroplasty Hip, pelvis, or leg fracture Acute spinal cord injury (< 1 month) Prophylaxis Regimen Total Risk Factor Score Risk Level Prophylaxis Regimen 0-1 Low Early ambulation 2 Moderate Order ONE of the following: *Sequential Compression Device (SCD) *Heparin 5000 units SQ BID 3-4 Higher Order ONE of the following medications: *Heparin 5000 units SQ TID *Enoxaparin/Lovenox 40 mg SQ daily (WT < 150 kg, CrCl > 30 mL/min) *Enoxaparin/Lovenox 30 mg SQ daily (WT < 150 kg, CrCl > 10-29 mL/min) *Enoxaparin/Lovenox 30 mg SQ BID (WT < 150 kg, CrCl > 30 mL/min) AND/OR *Sequential Compression Device (SCD) 5 or more Highest Order ONE of the following medications: *Heparin 5000 units SQ TID (Preferred with Epidurals) *Enoxaparin/Lovenox 40 mg SQ daily (WT < 150 kg, CrCl > 30 mL/min) *Enoxaparin/Lovenox 30 mg SQ daily (WT < 150 kg, CrCl > 10-29 mL/min) *Enoxaparin/Lovenox 30 mg SQ BID (WT < 150 kg, CrCl > 30 mL/min) AND *Sequential Compression Device (SCD) Assessment and Plan Assessment and Plan Neuro/Psych: Toxic metabolic encephalopathy Chronic benzodiazepine use Depression/anxiety History of EtOH History of CVA Chronic narcotic use Currently holding clonazepam 1 mg twice a day home medication Currently holding oxycodone 5 mill grams every 6 hours when necessary home medication for pain CT brain currently pending Ammonia level was 29 Continue thiamine 100 mg daily CV: Severe sepsis multisystem organ failure History of hypertension Dyslipidemia History of coronary artery disease Lactic acidosis Currently on sterile water with 3 ampules of bicarbonate 150 cc an hour Hold nadolol 20 mg by mouth daily Check CVP Use phenylephrine titrated to keep mean arterial pressure greater than 65 Arterial line is in place Serial lactates until cleared Resp: Acute hypoxic and hypercapnic respiratory failure History of obstructive sleep apnea History of tobaccoism Will likely be on intubated shortly Currently on BiPAP 10/5 at 40% Albuterol/ipratropium aerosols every 4 hours of albuterol aerosols every 2 hours. Dyspnea Follow-up on x-ray post intubation GI: Abdominal ascites Hepatitis B carrier History of gastric varices History of hiatal hernia Abdominal wall cellulitis Elevated total bilirubin Abdominal ascites status post 5-2 L Elevated LDH NG tube will be placed carefully LIWS lansoprazole for GI prophylaxis Docusate sodium/senna for bowel regimen Liver ultrasound revealed dental ascites Follow-up on paracentesis laboratories : Scrotal edema Crawford catheter has been placed for accurate I's and O's in a critically ill patient Endo: Diabetes mellitus Sliding-scale insulin with Accu-Cheks every 6 hours to maintain euglycemia Novulin R low regimen TSH in a.m. Renal: Acute kidney injury Abdominal ultrasound revealed no signs of hydronephrosis Hold nephrotoxic medications Urine eosinophils and electrolytes pending Heme: Pancytopenia including leukopenia, macrocytic anemia and thrombocytopenia Follow-up CBC and coags in AM. Monitor trends Transfuse 2 20 FFP and one pack platelets by Dr. Rosa ID: Sepsis unknown source Rule out SBP Broad-spectrum antibiotics include vancomycin and piperacillin/tazobactam Blood cultures 2, sputum, urine, influenza, urine pneumococcal and Legionella antigens and paracentesis studies all pending Infectious disease consultation MSK: Osteoarthritis PT evaluate and treat FEN: Replace electrolytes as clinically indicated Access - Utilize peripheral IV. Central line if indicated Peritoneal access - GI - pantoprazole - DVT - SCD/holding pharmacological prophylaxis in light of thrombocytopenia Critical Care: The total critical care time was 35 minutes. Time to perform other separately billable procedures was not included in the critical care time. Code Status Full code Discussed Condition With ED physician. Care plan discussed and all questions answered Discussed with healthcare proxy daughter Morenita Kellogg. discussed current medical situation which includes multisystem organ failure. Daughter requested DNR status. Will provide maximal medical therapy in the interim. Problem Qualifiers (1) Respiratory failure: Qualified Codes: J96.01 - Acute respiratory failure with hypoxia; J96.02 - Acute respiratory failure with hypercapnia (2) Gastroesophageal reflux disease: Qualified Codes: K21.9 - Gastro-esophageal reflux disease without esophagitis (3) Diabetes mellitus: Qualified Codes: E11.8 - Type 2 diabetes mellitus with unspecified complications (4) Leukopenia: Qualified Codes: D70.9 - Neutropenia, unspecified (5) Hepatitis B: Qualified Codes: B18.1 - Chronic viral hepatitis B without delta-agent (6) Abdominal pain: Qualified Codes: R10.84 - Generalized abdominal pain (7) Liver cirrhosis: Qualified Codes: K70.31 - Alcoholic cirrhosis of liver with ascites (8) Cellulitis: Qualified Codes: L03.90 - Cellulitis, unspecified Gentry Yeung MD Jan 15, 2017 09:25
[2017-01-15] MEDS ORDERED: ALBUMIN 25% INJ 50 ML IV ONE ×2 (09:45→10:30)
--- NOTE | 2017-01-15 09:51 | RADRPT ---
EXAM DATE/TIME: 01/15/2017 07:43 [facility] COMPARISON: CT ABDOMEN & PELVIS W CONTRAST, January 01, 2017, 14:52. INDICATIONS : Abdominal pain. MEDICAL HISTORY : Hypertension. Chronic obstructive pulmonary disease. Hepatitis C. Cerebrovascular accident. Heart att ack. Emphysema. Hiatal hernia. Diabetes. Arthritis. SURGICAL HISTORY : Tonsillectomy. Splenectomy. Hernia repair. Colon resection. Colonostomy placement and removal. Rig ht foot surgery. ENCOUNTER: Initial ACUITY: 2 days PAIN SCORE: 10/10 LOCATION: Abdomen. MEASUREMENTS: LIVER: 12.4 cm length COMMON DUCT: 7 mm RIGHT KIDNEY: 10.1 x 5.3 x 6.1 cm LEFT KIDNEY: 12.0 x 4.6 x 5.3 cm SPLEEN: 12.8 cm length AORTA: Nonvisualized FINDINGS: Moderate ascites LIVER: Markedly cirrhotic appearance. No focal mass or biliary ductal dilatation. COMMON DUCT: No intraluminal mass or stone visualized. GALLBLADDER: Diffuse wall thickening which is nonspecific in the setting of ascites and hypoproteinemia PANCREAS: Obscured RIGHT KIDNEY: No hydronephrosis, stone or mass. LEFT KIDNEY: No hydronephrosis, stone or mass. SPLEEN: Enlarged without focal mass AORTA: Nonvisualized IVC: Nonvisualized CONCLUSION: Cirrhotic liver with splenomegaly and ascites. Alberto Guallpa MD on January 15, 2017 at 9:45 Board Certified Radiologist. This report was verified electronically.
[2017-01-15 10:12] LABS: BLOOD GAS BASE EXCESS -17.5 mmol/L (-2-2); BLOOD GAS CARBOXYHEMOGLOBIN 0.8 % (0-4); BLOOD GAS HCO3 9 mmol/L (22-26); BLOOD GAS METHEMOGLOBIN 0.4 % (0-2); BLOOD GAS O2 HGB SATURATION 96 % (90-100); BLOOD GAS OXYGEN CONTENT 14.3 Vol % (12.0-20.0); BLOOD GAS PCO2 25 mmHg (38-42); BLOOD GAS PO2 111 mmHG (61-120); BLOOD GAS TOTAL HGB 10.5 G/DL (12.0-16.0); CRITICAL VALUE YES; FIO2 50 %; OXYGEN DEVICE BIPAP; VENT SETTINGS IPAP 12/EPAP 5
[2017-01-15 10:13] LABS: DRAW SITE LT BRACHIAL; NUMBER OF ARTERIAL PUNCTURES 1; STAT YES
[2017-01-15 10:21] LABS: BACTERIA, URINE MANY /hpf; BLOOD, URINE SMALL (NEG); COMMENT (UR) CULTURE INDICATED; CULTURE IF INDICATED CULTURE INDICATED; GLUCOSE,URINE NEG (NEG); KETONE, URINE TRACE mg/dL (NEG); NITRITE,URINE NEG (NEG); SQUAMOUS EPITHELIAL CELL URINE 2 /hpf (0-5); URINE COLOR DARK-BROWN (YELLW/STRAW)
[2017-01-15] MEDS ORDERED: DIATRIZOATE MEGLUM/DIATRIZOATE SOD 9 ML CUP PO ONE (10:30)
[2017-01-15] MEDS: PHENYLEPHRINE INJ 160 MG in DEXTROSE 5% IN WATE 500 ML INJ 484 ML IV PRN ×4 (10:55→18:53)
--- NOTE | 2017-01-15 11:07 | PD.PROCEDR ---
Central Line Procedure REASON FOR PROCEDURE Central venous access PROCEDURE PERFORMED Central line placement: Right IJ CVL CONSENT Informed consent for procedure was obtained. The risks and benefits of the procedure were discussed to include but limited to bleeding, clot formation, infection, and even . ANESTHESIA Local injection of 1% Lidocaine DESCRIPTION OF THE PROCEDURE The patient was placed in supine, mild Trendelenburg position. The area was exposed and cleansed with ChloraPrep, times two. Large sterile drape was used to cover the patient, with the site exposed, under sterile conditions including cap, face mask, sterile gown, and sterile gloves. On single attempt, the introducer needle was inserted with negative pressure in syringe and venous flash was obtained. The guide wire was then advanced without any restriction and the needle was removed. The dilator was used without any complications. Using Seldinger technique the antibiotic coated triple-lumen catheter was advanced over the guide wire to a depth of 16 centimeters. The guide wire was removed. All ports were aspirated with dark venous blood return and flushed easily with sterile saline. All ports were capped. Antibiotic disc was placed around central line at puncture site. The central line was secured to the skin with two interrupted 2.0 silk sutures. The area was bandaged with sterile see- through central line bandage. RADIOLOGICAL DATA Ultrasound guidance was used to locate right internal jugular vein. Doppler/ color flow was used to confirm venous flow. COMPLICATIONS: No apparent complications ESTIMATED BLOOD LOSS: Less than 1 cc. Gentry Yeung MD Jan 15, 2017 11:07
--- NOTE | 2017-01-15 11:08 | PD.PROCEDR ---
Procedure Note Procedure DATE:01/15/2017 PROCEDURE: Right femoral arterial catheter placement INDICATION: Severe sepsis/hemodynamic vascular access DETAILS OF PROCEDURE The patient was placed in supine position. The skin was cleansed with Chloraprep. Additional barrier precautions included large sterile drape, sterile gloves, sterile gown, face mask, and hat. 1% lidocaine was used for local anesthesia. Under direct ultrasound guidance and on the initial attempt, the artery was accessed with an introducer needle. The guide wire was advanced. Using Seldinger technique 20 gauge arterial catheter was placed. The guide wire was removed. The catheter was connected to a transducer line and flushed with saline. The video monitor displayed normal arterial wave forms. The catheter was secured with 2-0 silk. A sterile dressing with antibiotic disc was applied. ESTIMATED BLOOD LOSS: minimal COMPLICATIONS: None Gentry Yeung MD Jan 15, 2017 11:08
[2017-01-15] MEDS ORDERED: ETOMIDATE 40 MG/20 ML VIAL IV PUSH ONE (11:30)
[2017-01-15] MEDS ORDERED: ROCURONIUM INJ 50 MG/5 ML VIAL IV ONE (11:30)
[2017-01-15] MEDS ORDERED: MIDAZOLAM 100 MG/100 ML INJ 100 ML IV PRN (11:30)
[2017-01-15] MEDS ORDERED: fentaNYL DRIP 250 ML IV PRN (11:30)
[2017-01-15] MEDS ORDERED: LANSOPRAZOLE SOLUTAB 30 MG TAB NG ONE (11:30)
[2017-01-15] MEDS ORDERED: ROCURONIUM INJ 50 MG/5 ML VIAL ONE (11:31)
[2017-01-15] MEDS ORDERED: ETOMIDATE 40 MG/20 ML VIAL ONE (11:31)
[2017-01-15 11:32] LABS: INTERNATIONAL NORMALIZED RATIO 2.3 RATIO
[2017-01-15] MEDS ORDERED: GLUCAGON 1 MG/ML VIAL OTHER PRN (11:45)
[2017-01-15] MEDS ORDERED: PHYTONADIONE 5 MG/SWFI 5 ML ORAL SYR PO ONE (11:45)
--- NOTE | 2017-01-15 11:48 | RADRPT ---
EXAM DATE/TIME: 01/15/2017 11:14 [facility] COMPARISON: CHEST SINGLE AP, January 15, 2017, 5:01. INDICATIONS : Central line placement MEDICAL HISTORY : Hypertension. Chronic obstructive pulmonary disease. Diabetes mellitus type II. SURGICAL HISTORY : None. ENCOUNTER: Initial ACUITY: 1 day PAIN SCORE: 0/10 LOCATION: chest FINDINGS: The heart is at the upper limits of normal in size. Mediastinal contours are within normal limits. Ri ght IJ central line in good position. The appearance of the parenchyma stable compared to previous. T here is no pneumothorax. CONCLUSION: 1. No pneumothorax following central venous catheter placement. Catheters in good position. Sudhakar Perea MD on January 15, 2017 at 11:46 Board Certified Radiologist. This report was verified electronically.
--- NOTE | 2017-01-15 11:51 | PD.PROCEDR ---
Procedure Note Procedure DATE: 01/15/2017 PROCEDURE: Orotracheal intubation INDICATION: Respiratory failure DETAILS OF PROCEDURE The patient was placed in optimal position and preoxygenated with 100% FiO2 via bag valve mask. At the start oxygen saturation was 100%. The patient was administered 20 milligrams etomidate IV and 50 milligrams rocuronium IV. I entered the oropharynx with a size 4 GVL Glidescope blade and obtained a grade 3 view of the airway. On single attempt a size 8.0 cuffed endotracheal tube was passed through the vocal cords. Correct tube location was confirmed with end tidal CO2 detector and by auscultating over bilateral lung amor. The endotracheal tube was secured with adhesive tape at a depth of 23 cm at the lips. The patient was connected to the ventilator. The patient tolerated the procedure well without any apparent complications. Oxygen saturations were maintained greater than 95% all times. STAT chest x-ray pending at time of dictation. Gentry Yeung MD Jan 15, 2017 11:51
[2017-01-15] MEDS: INSULIN NovoLIN REGULAR SUPPLEMENTAL SCALE SQ SCH ×3 (12:00→23:08)
[2017-01-15] MEDS ORDERED: VANCOMYCIN INJ 750 MG in SODIUM CHLOR 0.9% 250 ML INJ 250 ML IV ONE (12:00)
[2017-01-15 12:05] LABS: PERITONEAL HISTIOCYTES 2 %; PERITONEAL LYMPHS 12 %; PERITONEAL MESOTHELIAL 1 %; PERITONEAL POLYS(SEGS) 85 %; PERITONEAL WBC 8342 /MM3 (0-10)
[2017-01-15] MEDS: SODIUM CHLORIDE 0.9% FLUSH 10 ML FLUSH IV FLUSH SCH ×2 (12:10→20:56)
[2017-01-15] MEDS: SODIUM BICARBONATE 8.4% INJ 150 MEQ in WATER STERILE FOR INJ 850 ML IV SCH ×2 (12:15→21:04)
[2017-01-15 12:18] LABS: MAGNESIUM 1.6 MG/DL (1.5-2.5)
--- NOTE | 2017-01-15 12:20 | PD.ID.CON ---
History of Present Illness Service ID Consult Requested By Reason for Consult Evaluation and Mment of Septic Shock in alcoholic patient with pancytopenia. Primary Care Physician [facility] Diagnoses: History of Present Illness This is a 66 year old male with a history of liver cirrhosis, alcoholic hepatitis, thrombocytopenia, hepatic encephalopathy, and ascites, who presented to the emergency room for evaluation of shortness of breath, shortness of breath , and jaundice. He was hospitalized in November of this year and evaluated by our service at that time for elevated LFTs/liver cirrhosis. At that time, he was drinking ETOH. He was worked up with CT, MRI, HIDA. He was also noted to be Hepatitis B Surface antigen positive, Hepatitis B Core total antibody positive, and Hepatitis Be Antibody positive, but his viral load was < than 1.30. Hepatitis C was negative. He was also noted to have an elevated AFP of 171.1, but no liver masses were appreciated on MRI of abdomen. He required a paracentesis on 11/30/16 and had 2,500cc removed. Cytology was not sent at that time. According to the EMR has since had multiple paracentesis since that time. He has not been seen at [facility]. He is currently intubated, sedated on the ventilator and unable to provide any history. US (01/15/17)---> Cirrhotic liver with splenomegaly and ascites. He underwent a bedside paracentesis with 5.2 L removed. He received Albumin post procedure. Peritoneal WBC 8342, RBC 1541, Neutrophils 85. Cytology is pending. He is on Zosyn. He has pancytopenia with WBC 0.9, 11.4/34.2, Plt 39; Coagulopathy with PT 23.0, INR 2.3, APTT 66, Fibrinogen 128; worsening LFT with T. Bilirubin 14.9 , AST 107, ALT 58, Alk Phosph 58, Alk Phosph 83, and creat 2.33. It is unknown if he is currently drinking, the nurse states his family stated that he quit "awhile back ago." Of note, he was drinking in November of 2016. Ethyl Alcohol < 3. DF 65.500. MELD 34. He is in the process of getting 2 units of FFP and 1 unit of PRBC. Review of Systems ROS Limitations: Intubated, Altered Mental Status Past Family Social History Allergies: Coded Allergies: No Known Allergies (Unverified Allergy, Unknown, 01/15/17) Past Medical History Generalized anxiety disorder Asthma COPD Diabetes mellitus type 2 Coronary artery disease Hypertension Dyslipidemia History of CVA Obstructive sleep apnea Hiatal hernia Gastroesophageal reflux disease History of hepatitis B EtOH use Prior tobaccoism Alcoholic Hepatitis Hepatic encephalopathy Ascites Elevated AFP Past Surgical History History of T&A Hernia repair Colon Resection 1999 and reversed 2013 Right foot surgery Reported Medications Last Impressions Chest X-Ray 01/15/17 1105 Signed Impressions: Service Date/Time: Sunday, January 15, 2017 11:14 - CONCLUSION: 1. No pneumothorax following central venous catheter placement. Catheters in good position. Sudhakar Perea MD Abdomen X-Ray 01/15/17 0000 Signed Impressions: Service Date/Time: Sunday, January 15, 2017 12:24 - CONCLUSION: NG tube in the stomach Alberto Guallpa MD Abdomen Ultrasound 01/15/17 0000 Signed Impressions: Service Date/Time: Sunday, January 15, 2017 07:43 - CONCLUSION: Cirrhotic liver with splenomegaly and ascites. Alberto Guallpa MD Active Ordered Medications Current Medications Medications (Trade) Dose Ordered Sig/Becka Route Start Time Stop Time Status Last Admin (KlonoPIN) 1 mg BID PO 01/15/17 09:00 Future Hold (Roxicodone) 5 mg Q6H PRN PO 01/15/17 06:45 (Xifaxan) 550 mg BID PO 01/15/17 09:00 01/15/17 12:49 (Aldactone) 50 mg DAILY PO 01/15/17 09:00 Future Hold (Vitamin B1) 100 mg DAILY PO 01/15/17 09:00 01/15/17 12:49 Phenylephrine HCl 160 mg/Dextrose 500 ml @ 7.5 mls/hr TITRATE PRN IV 01/15/17 06:45 01/15/17 10:55 Piperacillin Sod/ Tazobactam Sod 50 ml @ 100 mls/hr Q6H IV 01/15/17 12:00 01/15/17 12:49 Pharmacy Profile Note 0 ml @ 0 mls/hr UNSCH OTHER 01/15/17 06:45 (NS Flush) 2 ml UNSCH PRN IV FLUSH 01/15/17 06:45 01/15/17 12:09 (NS Flush) 2 ml BID IV FLUSH 01/15/17 09:00 01/15/17 12:10 (Zofran Inj) 4 mg Q6H PRN IV PUSH 01/15/17 06:45 (Albuterol Neb) 2.5 mg Q2HR NEB PRN INH 01/15/17 06:45 Miscellaneous Information 1 Q361D XX 01/15/17 06:45 01/15/17 06:45 (Chlorhexidine 2% Cloth) 3 pack Taper DAILY@04 TOP 01/16/17 04:00 01/12/18 03:59 (Chlorhexidine 2% Cloth) 3 pack UNSCH PRN TOP 01/15/17 06:45 (Brenda-Colace) 1 tab BID PO 01/15/17 09:00 (Milk Of Magnesia Liq) 30 ml Q12H PRN PO 01/15/17 06:45 (Senokot) 17.2 mg Q12H PRN PO 01/15/17 06:45 (Dulcolax Supp) 10 mg DAILY PRN RECTAL 01/15/17 06:45 (Lactulose Liq) 30 ml DAILY PRN PO 01/15/17 06:45 Sodium Chloride 250 ml @ 15 mls/hr ONCE ONCE IV 01/15/17 09:15 01/16/17 01:54 01/15/17 12:50 (NS Flush) DAILY IV FLUSH 01/16/17 09:00 01/15/17 12:09 (NS Flush) UNSCH PRN IV FLUSH 01/15/17 11:15 01/15/17 12:09 Sodium Bicarbonate 150 meq/Sterile Water 1,000 ml @ 150 mls/hr Q6H40M IV 01/15/17 13:00 01/15/17 12:15 (Peridex 0.12% Liq) 15 ml BID@08,20 MT 01/15/17 20:00 Fentanyl Citrate 250 ml @ 5 mls/hr TITRATE PRN IV 01/15/17 11:30 01/15/17 11:55 Midazolam HCl 100 ml @ 2 mls/hr TITRATE PRN IV 01/15/17 11:30 01/15/17 11:55 (Prevacid Odt) 30 mg DAILY NG 01/16/17 09:00 (D50w (Vial) Inj) 50 ml UNSCH PRN IV PUSH 01/15/17 11:45 01/15/17 13:23 (Glucagon Inj) 1 mg UNSCH PRN OTHER 01/15/17 11:45 (NovoLIN R SUPPLEMENTAL SCALE) 1 Q6HR SQ 01/15/17 12:00 (Folate) 1 mg DAILY PO 01/16/17 09:00 (Theragran) 1 tab DAILY PO 01/16/17 09:00 Sodium Chloride 154 meq/Dextrose 1,038.5 ml @ 30 mls/hr Q24H IV 01/15/17 13:00 01/15/17 15:33 (Tears Naturale Opth Soln) 1 drop Q8HR EACH EYE 01/15/17 14:00 (Protonix Inj) 40 mg DAILY IV PUSH 01/15/17 14:30 01/15/17 16:54 (TRENtal SR) 400 mg Q8HR PO 01/15/17 22:00 Vasopressin 40 units/Dextrose 100 ml @ 6 mls/hr [id number] IV 01/15/17 16:00 01/15/17 15:32 Norepinephrine Bitartrate 4 mg/ Sodium Chloride 250 ml @ 7.5 mls/hr TITRATE PRN IV 01/15/17 15:30 01/15/17 16:19 (Brethine Inj) 1 mg UNSCH PRN SQ 01/15/17 14:45 (SoluCORTEF INJ) 100 mg Q8HR IV PUSH 01/15/17 18:35 Family History Grandmother with diabetes Social History Per records: 40 year tobacco history. Allegedly quit 2015. Unclear ETOH use- he was still drinking ETOH in November. Denies illicit drug use Physical Exam Vital Signs Vital Signs Date Time Temp Pulse Resp B/P (MAP) Pulse Ox O2 Delivery O2 Flow Rate FiO2 01/15/17 11:40 97 70 01/15/17 11:20 114 113/75 01/15/17 11:15 111 98/48 01/15/17 11:10 115 99/46 01/15/17 11:05 113 92/44 01/15/17 11:00 111 95/54 01/15/17 10:55 112 98/54 01/15/17 10:39 111 34 94/55 (68) 100 01/15/17 10:36 113 33 94/53 (67) 100 01/15/17 10:33 114 34 98/53 (68) 100 01/15/17 10:30 112 32 92/53 (66) 100 01/15/17 10:27 112 31 97/55 (69) 100 01/15/17 10:15 114 31 91/53 (66) 100 01/15/17 10:00 114 29 95/48 (64) 99 01/15/17 09:56 113 29 80/43 (55) 99 01/15/17 09:30 115 32 98 01/15/17 09:05 100 50 01/15/17 09:00 109 32 103/65 (78) 88 01/15/17 08:41 96.5 113 34 106/54 (71) 01/15/17 08:40 01/15/17 08:20 80 Nasal Cannula 6.00 01/15/17 06:50 94 Nasal Cannula 4.00 01/15/17 06:48 109 18 97/53 (68) 01/15/17 06:38 102 20 94/52 (66) 94 Nasal Cannula 3.00 01/15/17 06:06 90/55 (67) 01/15/17 06:01 111 18 84/46 (59) 94 Nasal Cannula 3.00 01/15/17 05:54 109 18 72/43 (53) 94 Nasal Cannula 3.00 01/15/17 05:17 110 18 84/47 (59) 94 Nasal Cannula 3.00 01/15/17 03:50 Nasal Cannula 3.00 01/15/17 03:44 24 01/15/17 03:41 98.1 114 24 103/51 (68) 94 Physical Exam GENERAL: Obese, well-developed patient, in no apparent distress. SKIN: No rashes, ecchymoses or lesions. Cool and dry. Spider Naevi visible. HEAD: Atraumatic. Normocephalic. No temporal or scalp tenderness. EYES: Pupils equal round and reactive. Positive for scleral icterus. No injection or drainage. ENT: Intubated. NECK: Trachea midline. Supple, nontender, no meningeal signs. CARDIOVASCULAR: HS audible. RESPIRATORY: Clear to auscultation. Breath sounds equal bilaterally but decreased in bases. GASTROINTESTINAL: Abdomen distended. Area of erythema on the right side of lower abdomen with induration and slight warmth. Puncture site with sanguinous drainage and ostomy bag attached. MUSCULOSKELETAL: Extremities with significant pedal edema 3 plus. No joint effusions. NEUROLOGICAL: Sedated. Psych could not be assessed IV line sites with no e.o infection. Laboratory Microbiology Date/Time Source Procedure Growth Status 01/15/17 07:05 Blood Peripheral Aerobic Blood Culture - Preliminary Gram Negative Jesse Resulted 01/15/17 07:05 Anaerobic Blood Culture - Preliminary Gram Negative Jesse Resulted 01/15/17 09:35 Fluid Peritoneal Fluid Gram Stain - Final Resulted 01/15/17 09:35 Fluid Peritoneal Fluid Body Fluid Culture Pending Resulted 01/15/17 09:45 Urine Catheterized Urine Legionella Antigen - Final PRESUMPTIVE NEGATIVE FOR LEGIONELLA P... Complete 01/15/17 09:45 Urine Catheterized Urine Streptococcus pneumoniae Antigen (M - Final PRESUMPTIVE NEGATIVE FOR STREPTOCOCCU... Complete Laboratory Tests Test 01/15/17 04:41 01/15/17 07:08 01/15/17 09:35 01/15/17 09:45 White Blood Count 0.9 Red Blood Count 3.42 Hemoglobin 11.4 Hematocrit 34.2 Mean Corpuscular Volume 100.2 Mean Corpuscular Hemoglobin 33.4 Mean Corpuscular Hemoglobin Concent 33.3 Red Cell Distribution Width 15.5 Platelet Count 39 Mean Platelet Volume 9.3 CBC Comment AUTO DIFF Differential Total Cells Counted 100 Neutrophils % (Manual) 50 Band Neutrophils % 8 Lymphocytes % 15 Monocytes % 12 Neutrophils # (Manual) 0.7 Metamyelocytes 12 Myelocytes 1 Promyelocytes 2 Differential Comment FINAL DIFF MANUAL Blood Urea Nitrogen 30 Creatinine 2.33 Random Glucose 53 Total Protein 5.0 Albumin 2.0 Calcium Level 7.8 Alkaline Phosphatase 83 Aspartate Amino Transf (AST/SGOT) 107 Alanine Aminotransferase (ALT/SGPT) 58 Total Bilirubin 14.9 Sodium Level 134 Potassium Level 3.6 Chloride Level 103 Carbon Dioxide Level 15.2 Anion Gap 16 Estimat Glomerular Filtration Rate 28 Lactic Acid Level 9.3 8.9 Ammonia 29 Lactate Dehydrogenase 246 Peritoneal Fluid WBC 8342 Peritoneal Fluid RBC 1541 Peritoneal Fluid Neutrophils 85 Peritoneal Fluid Lymphocytes 12 Peritoneal Fluid Histiocytes 2 Peritoneal Fluid Mesothelial Cells 1 Peritoneal Fluid Total Protein 0.6 Peritoneal Fluid Albumin 0.3 Peritoneal Fluid LDH 67 Peritoneal Fluid Glucose 1 Urine Color DARK-BROWN Urine Turbidity HAZY Urine pH 5.0 Urine Specific Gatzke 1.018 Urine Protein 30 Urine Glucose (UA) NEG Urine Ketones TRACE Urine Occult Blood SMALL Urine Nitrite NEG Urine Bilirubin MOD Urine Urobilinogen 2.0 Urine Leukocyte Esterase TRACE Urine RBC 6 Urine WBC 5 Urine Squamous Epithelial Cells 2 Urine Amorphous Sediment MOD Urine Bacteria MANY Microscopic Urinalysis Comment CULTURE INDICATED Urine Eosinophils NONE SEEN Nasal Screen MRSA (PCR) MRSA NOT DETECTED Test 01/15/17 10:00 01/15/17 10:03 01/15/17 10:45 Blood Gas Puncture Site LT BRACHIAL Blood Gas Patient Temperature 37.0 Blood Gas HCO3 9 Blood Gas Base Excess -17.5 Blood Gas Oxygen Saturation 96 Arterial Blood pH 7.19 Arterial Blood Partial Pressure CO2 25 Arterial Blood Partial Pressure O2 111 Arterial Blood Oxygen Content 14.3 Arterial Blood Carboxyhemoglobin 0.8 Arterial Blood Methemoglobin 0.4 Blood Gas Hemoglobin 10.5 Oxygen Delivery Device BIPAP Blood Gas Ventilator Setting IPAP 12/EPAP 5 Blood Gas Inspired Oxygen 50 Phosphorus Level 3.8 Magnesium Level 1.6 Total Creatine Kinase 594 Troponin I 0.03 Amylase Level 35 Lipase 70 Prothrombin Time 23.0 Prothromb Time International Ratio 2.3 Activated Partial Thromboplast Time 66.0 Fibrinogen 128 Date/Time Source Procedure Growth Status 01/15/17 07:05 Blood Peripheral Aerobic Blood Culture Pending Received 01/15/17 07:05 Blood Peripheral Anaerobic Blood Culture Pending Received 01/15/17 09:35 Fluid Peritoneal Fluid Gram Stain Pending Received 01/15/17 09:35 Fluid Peritoneal Fluid Body Fluid Culture Pending Received 01/15/17 09:45 Urine Clean Catch Urine Culture Pending Received Result Diagram: 01/15/17 0441 01/15/17 0441 Imaging Last Impressions Chest X-Ray 01/15/17 1105 Signed Impressions: Service Date/Time: Sunday, January 15, 2017 11:14 - CONCLUSION: 1. No pneumothorax following central venous catheter placement. Catheters in good position. Sudhakar Perea MD Abdomen X-Ray 01/15/17 0000 Signed Impressions: Service Date/Time: Sunday, January 15, 2017 12:24 - CONCLUSION: NG tube in the stomach Alberto Guallpa MD Abdomen Ultrasound 01/15/17 0000 Signed Impressions: Service Date/Time: Sunday, January 15, 2017 07:43 - CONCLUSION: Cirrhotic liver with splenomegaly and ascites. Alberto Guallpa MD Assessment and Plan Assessment and Plan Severe Sepsis with Septic Shock Gram negative bacteremia as cause of Sepsis. Ascites s.p drainage of 5 L of fluid and albumin infusion. Spontaneous bacterial peritonitis or Secondary bacterial peritonitis (h/o repeated paracentesis). Aspiration Pneumonia Acute resp failure on vent Acute metabolic encephalopathy: sepsis Acute renal failure:sepsis, prerenal Possible DIC Pancytopenia: sepsis, cirrhosis Recs: Repeat blood cultures x 2 Continue Zosyn IV (if any change in clinical condition with worsening sepsis consider adding Meropenem as patient has prior antibiotic exposure) Continue Vanco IV (follow cultures, Cr to decide need for continuation or change to other agent) Check 2D ECHO to r/o endocarditis. Check CT brain, CT C/A/P to look for loculated abd fluid collections or abscesses. May need repeat therapeutic tap if fluid reaccumulates. Add Fluid AFB stain and culture Add Fluid Fungal stain and culture Follow hepatitis panel. Follow cultures Follow clinically. covering for me this weekend. Genoveva Rosa MD Jan 15, 2017 12:20
[2017-01-15 12:25] LABS: CKMB 2.6 NG/ML (0.5-3.6)
--- NOTE | 2017-01-15 12:46 | RADRPT ---
EXAM DATE/TIME: 01/15/2017 12:24 [facility] COMPARISON: No previous studies available for comparison. INDICATIONS : Post NG tube placement. MEDICAL HISTORY : Hypertension. Chronic obstructive pulmonary disease. Hepatitis C. Cerebrovascular accident. Heart att ack. Emphysema. Hiatal hernia. Diabetes. Arthritis. SURGICAL HISTORY : Tonsillectomy. Splenectomy. Hernia repair. Colon resection. Colonostomy placement and removal. Right foot surgery. ENCOUNTER: Subsequent ACUITY: 1 day PAIN SCORE: Non-responsive. LOCATION: abdomen FINDINGS: Nasogastric tube coils in the stomach. There is mild gaseous gastric distention. Air is present occas ional nondilated bowel loops elsewhere. No suspicious calcific densities. Mild degenerative changes i n the spine. CONCLUSION: NG tube in the stomach Alberto Guallpa MD on January 15, 2017 at 12:42 Board Certified Radiologist. This report was verified electronically.
[2017-01-15] MEDS: RIFAXIMIN 550 MG TAB PO SCH ×2 (12:49→20:56)
[2017-01-15] MEDS: PIPERACIL-TAZO 3.375 GM PREMIX 50 ML IV SCH ×3 (12:49→23:08)
[2017-01-15] MEDS: THIAMINE HCL 100 MG TAB PO SCH (12:49)
--- NOTE | 2017-01-15 12:50 | RADRPT ---
EXAM DATE/TIME: 01/15/2017 12:21 [facility] COMPARISON: CHEST SINGLE AP, January 15, 2017, 11:14. INDICATIONS : Post intubation. MEDICAL HISTORY : Hypertension. Chronic obstructive pulmonary disease. Hepatitis C. Cerebrovascular accident. Heart att ack. Emphysema. Hiatal hernia. Diabetes. Arthritis. SURGICAL HISTORY : Tonsillectomy. Splenectomy. Hernia repair. Colon resection. Colonostomy placement and removal. Right foot surgery. ENCOUNTER: Subsequent ACUITY: 1 day PAIN SCORE: Non-responsive. LOCATION: Bilateral chest FINDINGS: A single portable frontal view of the chest shows an endotracheal tube with the tip 4 cm proximal to donna. Nasogastric tube has been placed with the tip coiled in the gastric fundus. Right-sided centr al line is unchanged. Bibasilar parenchymal consolidations are unchanged. No effusions. Heart is norm al in size. No pneumothorax. Degenerative spine. CONCLUSION: 1. Interval intubation and placement of a nasogastric tube. 2. Unchanged bibasilar atelectasis versus infiltrates. Eric Cruz Jr., MD on January 15, 2017 at 12:45 Board Certified Radiologist. This report was verified electronically.
[2017-01-15] MEDS: DEXTROSE 50% IN WATER 50 ML VIAL(D50) IV PUSH PRN ×5 (12:56→23:06)
[2017-01-15 12:58] LABS: BLOOD GAS BASE EXCESS -19.9 mmol/L (-2-2); BLOOD GAS HCO3 9 mmol/L (22-26); BLOOD GAS METHEMOGLOBIN 1.1 % (0-2); BLOOD GAS O2 HGB SATURATION 96 % (90-100); BLOOD GAS OXYGEN CONTENT 14.3 Vol % (12.0-20.0); BLOOD GAS PCO2 43 mmHg (38-42); BLOOD GAS PO2 153 mmHg (61-120); BLOOD GAS TOTAL HGB 10.4 G/DL (12.0-16.0); CRITICAL VALUE YES; FIO2 70 %; OXYGEN DEVICE VENTILATOR; TEMP CORR TO 98.6; VENT SETTINGS PRVC/AC 600/20
[2017-01-15 12:59] LABS: DRAW SITE ART LINE; STAT NO
[2017-01-15] MEDS ORDERED: SODIUM BICARBONATE 8.4% INJ 50 ML ONE (13:00)
[2017-01-15] MEDS ORDERED: SODIUM BICARBONATE 8.4% INJ 50 MEQ/50 ML SYR IV PUSH ONE ×2 (13:00→16:45)
[2017-01-15] MEDS ORDERED: SODIUM CHLORIDE 23.4% INJ 154 MEQ in DEXTROSE 10% INJ 1,000 ML IV SCH (13:00)
--- NOTE | 2017-01-15 13:37 | PD.CONS ---
HPI History of Present Illness This is a 66 year old male with a history of liver cirrhosis, alcoholic hepatitis, thrombocytopenia, hepatic encephalopathy, and ascites, who presented to the emergency room for evaluation of shortness of breath, shortness of breath , and jaundice. He was hospitalized in November of this year and evaluated by our service at that time for elevated LFTs/liver cirrhosis. At that time, he was drinking ETOH. He was worked up with CT, MRI, HIDA. He was also noted to be Hepatitis B Surface antigen positive, Hepatitis B Core total antibody positive, and Hepatitis Be Antibody positive, but his viral load was < than 1.30. Hepatitis C was negative. He was also noted to have an elevated AFP of 171.1, but no liver masses were appreciated on MRI of abdomen. He required a paracentesis on 11/30/16 and had 2,500cc removed. Cytology was not sent at that time. According to the EMR has since had multiple paracentesis since that time. He has not been seen at [facility]. He is currently intubated, sedated on the ventilator and unable to provide any history. US (01/15/17)---> Cirrhotic liver with splenomegaly and ascites. He underwent a bedside paracentesis with 5.2 L removed. He received Albumin post procedure. Peritoneal WBC 8342, RBC 1541, Neutrophils 85. Cytology is pending. He is on Zosyn. He has pancytopenia with WBC 0.9, 11.4/34.2, Plt 39; Coagulopathy with PT 23.0, INR 2.3, APTT 66, Fibrinogen 128; worsening LFT with T. Bilirubin 14.9 , AST 107, ALT 58, Alk Phosph 58, Alk Phosph 83, and creat 2.33. It is unknown if he is currently drinking, the nurse states his family stated that he quit "awhile back ago." Of note, he was drinking in November of 2016. Ethyl Alcohol < 3. DF 65.500. MELD 34. He is in the process of getting 2 units of FFP and 1 unit of PRBC. (Jesica Claros) PFS Past Medical History Generalized anxiety disorder Asthma COPD Diabetes mellitus type 2 Coronary artery disease Hypertension Dyslipidemia History of CVA Obstructive sleep apnea Hiatal hernia Gastroesophageal reflux disease History of hepatitis B EtOH use Prior tobaccoism Alcoholic Hepatitis Hepatic encephalopathy Ascites Elevated AFP Past Surgical History History of T&A Hernia repair Colon Resection 1999 and reversed 2013 Right foot surgery (Jesica Claros) Coded Allergies: No Known Allergies (Unverified Allergy, Unknown, 01/15/17) Medications Allergies Coded Allergies Type Severity Reaction Last Updated Verified No Known Allergies Allergy Unknown 01/15/17 No Active Scripts Medications Dose Route/Sig Max Daily Dose Days Date Category Dose Instructions Oxycodone (Oxycodone HCl) 5 Mg Cap 5 Mg PO Q6H PRN 01/01/17 Rx Corgard (Nadolol) 20 Mg Tab 20 Mg PO DAILY 12/15/16 Rx Xifaxan (Rifaximin) 550 Mg Tab 550 Mg PO BID 12/15/16 Rx Metformin (Metformin HCl) 500 Mg Tab 500 Mg PO BIDPC 12/15/16 Rx With meals Gnp Vitamin B-1 (Thiamine HCl) 100 Mg Tab 100 Mg PO DAILY 12/03/16 Rx Klonopin (Clonazepam) 1 Mg Tab 1 Mg PO BID 11/29/16 Reported [Bp Med] PO BID 11/29/16 Reported Family History Grandmother with diabetes Social History Pt intubated. Per EMR- 40 year tobacco history. Allegedly quit 2015. Unclear ETOH use- he was still drinking ETOH in November. Denies illicit drug use (Jesica Claros) Review of Systems ROS Unable to obtain (Jesica Claros) GI Exam Vitals I&O Vital Signs Date Time Temp Pulse Resp B/P (MAP) Pulse Ox O2 Delivery O2 Flow Rate FiO2 01/15/17 11:40 97 70 01/15/17 11:20 114 113/75 01/15/17 11:15 111 98/48 01/15/17 11:10 115 99/46 01/15/17 11:05 113 92/44 01/15/17 11:00 111 95/54 01/15/17 10:55 112 98/54 01/15/17 10:39 111 34 94/55 (68) 100 01/15/17 10:36 113 33 94/53 (67) 100 01/15/17 10:33 114 34 98/53 (68) 100 01/15/17 10:30 112 32 92/53 (66) 100 01/15/17 10:27 112 31 97/55 (69) 100 01/15/17 10:15 114 31 91/53 (66) 100 01/15/17 10:00 114 29 95/48 (64) 99 01/15/17 09:56 113 29 80/43 (55) 99 01/15/17 09:30 115 32 98 01/15/17 09:05 100 50 01/15/17 09:00 109 32 103/65 (78) 88 01/15/17 08:41 96.5 113 34 106/54 (71) 01/15/17 08:40 01/15/17 08:20 80 Nasal Cannula 6.00 01/15/17 06:50 94 Nasal Cannula 4.00 01/15/17 06:48 109 18 97/53 (68) 01/15/17 06:38 102 20 94/52 (66) 94 Nasal Cannula 3.00 01/15/17 06:06 90/55 (67) 01/15/17 06:01 111 18 84/46 (59) 94 Nasal Cannula 3.00 01/15/17 05:54 109 18 72/43 (53) 94 Nasal Cannula 3.00 01/15/17 05:17 110 18 84/47 (59) 94 Nasal Cannula 3.00 01/15/17 03:50 Nasal Cannula 3.00 01/15/17 03:44 24 01/15/17 03:41 98.1 114 24 103/51 (68) 94 I/O 01/14/17 01/14/17 01/14/17 01/15/17 01/15/17 01/15/17 07:00 15:00 23:00 07:00 15:00 23:00 Intake Total 2696 ml Balance 2696 ml Intake IV Total 2686 ml Blood Product IV Normal Saline Flush 10 ml Imaging Allergies Coded Allergies Type Severity Reaction Last Updated Verified No Known Allergies Allergy Unknown 01/15/17 No Active Scripts Medications Dose Route/Sig Max Daily Dose Days Date Category Dose Instructions Oxycodone (Oxycodone HCl) 5 Mg Cap 5 Mg PO Q6H PRN 01/01/17 Rx Corgard (Nadolol) 20 Mg Tab 20 Mg PO DAILY 12/15/16 Rx Xifaxan (Rifaximin) 550 Mg Tab 550 Mg PO BID 12/15/16 Rx Metformin (Metformin HCl) 500 Mg Tab 500 Mg PO BIDPC 12/15/16 Rx With meals Gnp Vitamin B-1 (Thiamine HCl) 100 Mg Tab 100 Mg PO DAILY 12/03/16 Rx Klonopin (Clonazepam) 1 Mg Tab 1 Mg PO BID 11/29/16 Reported [Bp Med] PO BID 11/29/16 Reported Laboratory Test 01/15/17 04:41 01/15/17 07:08 01/15/17 09:35 01/15/17 09:45 White Blood Count 0.9 TH/MM3 Red Blood Count 3.42 MIL/MM3 Hemoglobin 11.4 GM/DL Hematocrit 34.2 % Mean Corpuscular Volume 100.2 FL Mean Corpuscular Hemoglobin 33.4 PG Mean Corpuscular Hemoglobin Concent 33.3 % Red Cell Distribution Width 15.5 % Platelet Count 39 TH/MM3 Mean Platelet Volume 9.3 FL CBC Comment AUTO DIFF Differential Total Cells Counted 100 Neutrophils % (Manual) 50 % Band Neutrophils % 8 % Lymphocytes % 15 % Monocytes % 12 % Neutrophils # (Manual) 0.7 TH/MM3 Metamyelocytes 12 % Myelocytes 1 % Promyelocytes 2 % Differential Comment FINAL DIFF MANUAL Blood Urea Nitrogen 30 MG/DL Creatinine 2.33 MG/DL Random Glucose 53 MG/DL Total Protein 5.0 GM/DL Albumin 2.0 GM/DL Calcium Level 7.8 MG/DL Alkaline Phosphatase 83 U/L Aspartate Amino Transf (AST/SGOT) 107 U/L Alanine Aminotransferase (ALT/SGPT) 58 U/L Total Bilirubin 14.9 MG/DL Sodium Level 134 MEQ/L Potassium Level 3.6 MEQ/L Chloride Level 103 MEQ/L Carbon Dioxide Level 15.2 MEQ/L Anion Gap 16 MEQ/L Estimat Glomerular Filtration Rate 28 ML/MIN Lactic Acid Level 9.3 mmol/L 8.9 mmol/L Ammonia 29 MCMOL/L Lactate Dehydrogenase 246 U/L Peritoneal Fluid WBC 8342 /MM3 Peritoneal Fluid RBC 1541 /MM3 Peritoneal Fluid Neutrophils 85 % Peritoneal Fluid Lymphocytes 12 % Peritoneal Fluid Histiocytes 2 % Peritoneal Fluid Mesothelial Cells 1 % Peritoneal Fluid Total Protein 0.6 GM/DL Peritoneal Fluid Albumin 0.3 G/DL Peritoneal Fluid LDH 67 U/L Peritoneal Fluid Glucose 1 MG/DL Urine Color DARK-BROWN Urine Turbidity HAZY Urine pH 5.0 Urine Specific [place] 1.018 Urine Protein 30 mg/dL Urine Glucose (UA) NEG mg/dL Urine Ketones TRACE mg/dL Urine Occult Blood SMALL Urine Nitrite NEG Urine Bilirubin MOD Urine Urobilinogen 2.0 MG/DL Urine Leukocyte Esterase TRACE Urine RBC 6 /hpf Urine WBC 5 /hpf Urine Squamous Epithelial Cells 2 /hpf Urine Amorphous Sediment MOD Urine Bacteria MANY /hpf Microscopic Urinalysis Comment CULTURE INDICATED Urine Eosinophils NONE SEEN /HPF Nasal Screen MRSA (PCR) MRSA NOT DETECTED Test 01/15/17 10:00 01/15/17 10:03 01/15/17 10:45 01/15/17 12:50 Blood Gas Puncture Site LT BRACHIAL ART LINE Blood Gas Patient Temperature 37.0 98.6 Blood Gas HCO3 9 mmol/L 9 mmol/L Blood Gas Base Excess -17.5 mmol/L -19.9 mmol/L Blood Gas Oxygen Saturation 96 % 96 % Arterial Blood pH 7.19 6.97 Arterial Blood Partial Pressure CO2 25 mmHg 43 mmHg Arterial Blood Partial Pressure O2 111 mmHG 153 mmHg Arterial Blood Oxygen Content 14.3 Vol % 14.3 Vol % Arterial Blood Carboxyhemoglobin 0.8 % 0.0 % Arterial Blood Methemoglobin 0.4 % 1.1 % Blood Gas Hemoglobin 10.5 G/DL 10.4 G/DL Oxygen Delivery Device BIPAP VENTILATOR Blood Gas Ventilator Setting IPAP 12/EPAP 5 PRVC/AC 600/20 Blood Gas Inspired Oxygen 50 % 70 % Phosphorus Level 3.8 MG/DL Magnesium Level 1.6 MG/DL Total Creatine Kinase 594 U/L Creatine Kinase MB 2.6 NG/ML Creatine Kinase MB % 0.4 % Troponin I 0.03 NG/ML Amylase Level 35 U/L Lipase 70 U/L Prothrombin Time 23.0 SEC Prothromb Time International Ratio 2.3 RATIO Activated Partial Thromboplast Time 66.0 SEC Fibrinogen 128 mg/dL Date/Time Source Procedure Growth Status 01/15/17 07:05 Blood Peripheral Aerobic Blood Culture Pending Received 01/15/17 07:05 Blood Peripheral Anaerobic Blood Culture Pending Received 01/15/17 09:35 Fluid Peritoneal Fluid Gram Stain Pending Received 01/15/17 09:35 Fluid Peritoneal Fluid Body Fluid Culture Pending Received 01/15/17 09:45 Urine Clean Catch Urine Culture Pending Received Physical Examination HEENT: Normocephalic; atraumatic; + jaundice. CHEST: OETT vent. Diminished. CARDIAC: Sinus tachycardia ABDOMEN: Soft, mildly distended ascites, hepatosplenomegaly; bowel sounds are present in all four quadrants. EXTREMITIES: Gen. edema. Cool to touch SKIN: + Jaundice EVENTS SOLUTIONS CONSULTANT: Sedated on vent (Jesica Claros) Assessment and Plan Plan ASSESSMENT: - Acute liver failure, liver cirrhosis, ? alcoholic hepatitis component, hx Hep B. Pt with hx of known cirrhosis. He was drinking ETOH in November of this year. During that hospitalization, he was evaluated with CT/MRI/HIDA. Noted to have Hepatitis B Surface antigen positive, Hepatitis B Core total antibody positive, and Hepatitis Be Antibody positive, but his viral load was < than 1.30. LFT with T. Bilirubin 14.9, AST 107, ALT 58, Alk Phosph 58, Alk Phosph 83, and creat 2.33. It is unknown if he is currently drinking, the nurse states his family stated that he quit "awhile back ago." Of note, he was drinking in November of 2016. Ethyl Alcohol < 3. US (01/15/17)---> Cirrhotic liver with splenomegaly and ascites. DF 65.500. MELD 34. Will get acetaminophen level. Will add Pentoxifylline in case there is any alcoholic hepatitis component. - Ascites with SBP. S/P bedside paracentesis with 5.2 L removed. He received Albumin post procedure. Peritoneal WBC 8342, RBC 1541, Neutrophils 85. Cytology is pending. He is on Zosyn. - Hepatic encephalopathy. Xifaxan and Lactulose. - Pancytopenia. 0.9, 11.4, 34.2, 39. 1 unit PRBC ordered. - Coagulopathy/thrombocytopenia. Plt 39. 2 unit FFP ordered. If bleeding, give platelets as well. - Hepatitis B surface ag (+), Hep Be Ab (+), Undetectable viral load. ? Past or treated infection. Will recheck. - Hx elevated AFP. 11/2016, AFP 171.1, but no liver masses were appreciated on MRI of abdomen at that time. - Respiratory failure, MILLY. Vent per CCM. - ARF, GLORIA vs hepatorenal. 2.33 Minimal UOP - Sepsis, Elevated lactic acid. Lactic acid 8.9. Cx pending. Zosyn. ID following. PLAN: - NPO - Protonix 40mg IV daily - Pentoxifylline 400mg q8h - Cont. Xifaxan - Cont. Lactulose - Cont. Zosyn - AFP level - Hepatitis Be Ag - Hepatitis Bs Ag - Hepatitis B DNA PCR - Hepatitis B core ab - Hepatitis B surface ab - Agree with transfusion - Monitor HH - Transfuse as necessary - Consider platelets if active bleeding - CBC, CMP, Ammonia in am - Supportive care - Further recommendations to follow based on results of above - Pt seen and examined by Dr. Fernandez and myself and this note is written on her behalf (Jesica Claros) Physician Comments seen, examined agree with above family at bedside paracentesis suggesting SBP serology suggesting past infection with hep b, not sure if he was treated or not , viral load undetectable very poor prognosis-consider palliative/hospice consult (Danae Fernandez MD) Jesica Claros Jan 15, 2017 13:36 Danae Fernandez MD Jan 15, 2017 19:12
[2017-01-15] MEDS: ARTIFICIAL TEARS OPTH SOLN 15 ML BTL EACH EYE SCH ×2 (14:00→20:56)
[2017-01-15] MEDS ORDERED: SODIUM CHLOR 0.45% 1000 ML INJ 1,000 ML IV ONE (14:15)
[2017-01-15 14:20] LABS: BICARBONATE 13.7 MEQ/L (21.0-32.0)
[2017-01-15 14:45] LABS: CALCIUM-PROTEIN CORRECTED 8.4 MG/DL (8.5-10.1)
[2017-01-15] MEDS: VASOPRESSIN INJ 40 UNITS in DEXTROSE 5% IN WATER 100ML INJ 98 ML IV SCH ×2 (15:32)
[2017-01-15] MEDS: NOREPINEPHRINE INJ 4 MG in SODIUM CHLOR 0.9% 250 ML INJ 246 ML IV PRN ×3 (16:19→23:22)
--- NOTE | 2017-01-15 16:33 | PD.PROCEDR ---
Procedure Note Procedure Procedure: Ultrasound-guided abdominal paracentesis Preoperative diagnosis: Ascites, liver cirrhosis, severe sepsis, coagulopathy Postop diagnosis: Same Informed consent obtained from family and documented on chart. Anesthesia used: 1% lidocaine for local infiltration anesthesia Procedure: Ultrasound was used to locate ascites in right lower quadrant After sterile prepping and draping using 1% lidocaine for local infiltration anesthesia, peritoneal cavity was entered using thoracentesis needle and thoracentesis catheter was advanced into the peritoneal cavity as evidenced by return of straw-colored cloudy ascites fluid and needle was removed. After connecting tubing, peritoneal fluid was drained using Vacutainer bottles. Approximately 5.2 Liters of ascitic fluid was drained. Specimen was collected for lab studies and cultures. Subsequently drainage catheter was removed and dressing was applied to the site. Patient tolerated procedure well with no immediate complications noted. Vernon Rosa MD Jan 15, 2017 16:33
--- NOTE | 2017-01-15 16:45 | EKG ---
Date Performed: 01/15/2017 Time Performed: 03:44:36 PTAGE: 66 years EKG: SINUS TACHYCARDIA WITH OCCASIONAL ECTOPIC PREMATURE COMPLEXES MARKED LEFT AXIS DEVIATION SD OBABLE LATERAL MYOCARDIAL INFARCTION ABNORMAL ECG Compared to PREVIOUS TRACING , the patient is now tachycardic. PREVIOUS TRACING 01/19/2016 10.11.25 DOCTOR: Reema Grubbs Interpretating Date/Time 01/15/2017 16:44:55
[2017-01-15] MEDS: PANTOPRAZOLE SODIUM 40 MG VIAL IV PUSH SCH (16:54)
[2017-01-15 17:04] LABS: BLOOD GAS BASE EXCESS -19.9 mmol/L (-2-2); BLOOD GAS CARBOXYHEMOGLOBIN 0.2 % (0-4); BLOOD GAS HCO3 9 mmol/L (22-26); BLOOD GAS O2 HGB SATURATION 90 % (90-100); BLOOD GAS PCO2 42 mmHg (38-42); BLOOD GAS PO2 85 mmHg (61-120); BLOOD GAS TOTAL HGB 9.4 G/DL (12.0-16.0); TEMP CORR TO 98.6
[2017-01-15 17:05] LABS: CRITICAL VALUE YES; FIO2 60 %; OXYGEN DEVICE VENTILATOR
[2017-01-15 17:06] LABS: DRAW SITE ART LINE; STAT NO
[2017-01-15] MEDS: HYDROCORTISONE SOD SUCCINATE 100 MG VIAL IV PUSH SCH (19:10)
[2017-01-15] MEDS: CHLORHEXIDINE 0.12% (ORAL KIT) 15 ML CUP MT SCH (20:00)
[2017-01-15 20:07] LABS: BLOOD GAS BASE EXCESS -18.1 mmol/L (-2-2); BLOOD GAS CARBOXYHEMOGLOBIN 0.2 % (0-4); BLOOD GAS HCO3 11 mmol/L (22-26); BLOOD GAS METHEMOGLOBIN 1.1 % (0-2); BLOOD GAS O2 HGB SATURATION 97 % (90-100); BLOOD GAS OXYGEN CONTENT 12.6 Vol % (12.0-20.0); BLOOD GAS PCO2 43 mmHg (38-42); BLOOD GAS PO2 139 mmHg (61-120); BLOOD GAS TOTAL HGB 9.1 G/DL (12.0-16.0); TEMP CORR TO 98.6
[2017-01-15 20:09] LABS: CRITICAL VALUE YES; DRAW SITE ART LINE; FIO2 100 %; OXYGEN DEVICE VENTILATOR; STAT NO; VENT SETTINGS PRVC/AC
[2017-01-15] MEDS: PENTOXIFYLLINE 400 MG CONTROLLED RELEASE TAB PO SCH (20:56)
[2017-01-16] VITALS (9 sets, daily range): BP systolic 28–94; BP diastolic 22–58; PULSE 92–118; RESP 7–29; TEMP 97.6–98.7; O2SAT 80–90
[2017-01-16 00:58] LABS: ANION GAP 24 MEQ/L (5-15); BICARBONATE 13.1 MEQ/L (21.0-32.0); BLOOD UREA NITROGEN 30 MG/DL (7-18); CHLORIDE 102 MEQ/L (98-107); GLOMERULAR FILTRATION RATE 18 ML/MIN (>89); POTASSIUM 3.4 MEQ/L (3.5-5.1); SODIUM (NA) 139 MEQ/L (136-145)
[2017-01-16 01:04] LABS: ACETAMINOPHEN LESS THAN 2.0 MCG/ML (10.0-30.0)
[2017-01-16 01:17] LABS: CALCIUM-PROTEIN CORRECTED 7.8 MG/DL (8.5-10.1)
[2017-01-16] MEDS: NOREPINEPHRINE INJ 4 MG in SODIUM CHLOR 0.9% 250 ML INJ 246 ML IV PRN ×5 (01:36→09:18)
[2017-01-16] MEDS: VASOPRESSIN INJ 40 UNITS in DEXTROSE 5% IN WATER 100ML INJ 98 ML IV SCH ×4 (02:29→09:18)
[2017-01-16] MEDS: PHENYLEPHRINE INJ 160 MG in DEXTROSE 5% IN WATE 500 ML INJ 484 ML IV PRN ×4 (02:29→05:23)
[2017-01-16] MEDS: SODIUM BICARBONATE 8.4% INJ 150 MEQ in WATER STERILE FOR INJ 850 ML IV SCH ×2 (02:29→09:00)
[2017-01-16] MEDS ORDERED: CHLORHEXIDINE GLUCONATE 2 % 1 PACK (2 CLOTHS) TOP SCH (04:00)
[2017-01-16 05:19] LABS: BASOPHIL % 0.1 % (0.0-2.0); EOSINOPHIL # 0.4 TH/MM3 (0-0.4); EOSINOPHIL % 6.6 % (0.0-4.0); HEMATOCRIT 26.5 % (39.0-51.0); LYMPH % 10.1 % (9.0-44.0); LYMPHOCYTE # 0.6 TH/MM3 (1.0-4.8); MEAN CELL VOLUME 104.8 FL (80.0-100.0); MEAN CORPUSCULAR HEMOGLOBIN 33.3 PG (27.0-34.0); MEAN CORPUSCULAR HGB CONC 31.8 % (32.0-36.0); MONO % 4.6 % (0.0-8.0); NEUT % 78.6 % (16.0-70.0); PLATELET COUNT 24 TH/MM3 (150-450); RED BLOOD COUNT 2.53 MIL/MM3 (4.50-5.90); RED CELL DISTRIBUTION WIDTH 16.7 % (11.6-17.2); WHITE BLOOD COUNT 6.3 TH/MM3 (4.0-11.0)
[2017-01-16] MEDS: ARTIFICIAL TEARS OPTH SOLN 15 ML BTL EACH EYE SCH (05:23)
[2017-01-16] MEDS: PIPERACIL-TAZO 3.375 GM PREMIX 50 ML IV SCH (05:23)
[2017-01-16] MEDS: PENTOXIFYLLINE 400 MG CONTROLLED RELEASE TAB PO SCH (05:25)
[2017-01-16] MEDS: HYDROCORTISONE SOD SUCCINATE 100 MG VIAL IV PUSH SCH (05:25)
[2017-01-16] MEDS: INSULIN NovoLIN REGULAR SUPPLEMENTAL SCALE SQ SCH (05:26)
[2017-01-16] MEDS: DEXTROSE 50% IN WATER 50 ML VIAL(D50) IV PUSH PRN ×2 (05:27→06:50)
[2017-01-16 05:38] LABS: BICARBONATE 10.1 MEQ/L (21.0-32.0); CALCIUM-PROTEIN CORRECTED 7.7 MG/DL (8.5-10.1); HEMO FLAGS AUTO DIFF; MAGNESIUM 1.7 MG/DL (1.5-2.5); TOTAL BILIRUBIN ADULT 10.8 MG/DL (0.2-1.0)
[2017-01-16 05:40] LABS: BLOOD GAS BASE EXCESS -21.2 mmol/L (-2-2); BLOOD GAS HCO3 8 mmol/L (22-26); BLOOD GAS METHEMOGLOBIN 1.3 % (0-2); BLOOD GAS O2 HGB SATURATION 97 % (90-100); BLOOD GAS OXYGEN CONTENT 10.8 Vol % (12.0-20.0); BLOOD GAS PCO2 39 mmHg (38-42); BLOOD GAS PO2 157 mmHg (61-120); BLOOD GAS TOTAL HGB 7.7 G/DL (12.0-16.0); TEMP CORR TO 98.6
[2017-01-16 05:41] LABS: CRITICAL VALUE YES; OXYGEN DEVICE VENT
[2017-01-16 05:42] LABS: DRAW SITE A; FIO2 100 %; STAT NO
[2017-01-16 06:02] LABS: BANDS 41 % (0-6); CORRECTED NUCLEATED RBC 1 /100 WBC (0-0); EOSINOPHILS 6 % (0-4); METAMYELOCYTES 25 % (0-1); MYELOCYTES 5 % (0-0); NEUTROPHIL # MANUAL DIFF 4.9 TH/MM3 (1.8-7.7); POLYS (SEG NEUTROPHILS) 7 % (16-70); WBC DIFF SAMPLE 100
[2017-01-16 06:03] LABS: KERATOCYTES 1+ (NORMAL); OVALOCYTES 1+ (NORMAL); TEARDROP RBCS 1+ (NORMAL)
[2017-01-16 06:04] LABS: PLATELET ESTIMATE SMEAR LOW (NORMAL); PLATELET MORPHOLOGY NORMAL (NORMAL); TOXIC VACUOLATION PRESENT (NONE SEEN)
[2017-01-16 06:05] LABS: SCAN/DIFF FINAL DIFF MANUAL
[2017-01-16 06:37] LABS: INTERNATIONAL NORMALIZED RATIO 3.1 RATIO; PROTHROMBIN TIME - PATIENT 31.7 SEC (9.8-11.6)
[2017-01-16 07:09] LABS: APTT (PATIENT) 110.5 SEC (24.3-30.1)
[2017-01-16] MEDS: CHLORHEXIDINE 0.12% (ORAL KIT) 15 ML CUP MT SCH (08:00)
[2017-01-16] MEDS ORDERED: SODIUM BICARBONATE 8.4% INJ 50 MEQ/50 ML SYR IV PUSH ONE (08:30)
[2017-01-16] MEDS ORDERED: LACTULOSE SYRUP 20 GM/30 ML CUP OG-TUBE SCH (08:30)
[2017-01-16] MEDS ORDERED: PROTHROMBIN COMPLEX CONC INJ 2,500 UNITS in SYRINGE/BAG 1 EA IV ONE (08:45)
[2017-01-16] MEDS ORDERED: CALCIUM CHLORIDE INJ 1 GM in SODIUM CHLORIDE 0.9% INJ 100 ML IV ONE (09:00)
[2017-01-16] MEDS ORDERED: MAGNESIUM SULFATE 1 GM PREMIX 100 ML IV ONE (09:00)
[2017-01-16] MEDS ORDERED: SODIUM CHLORIDE 0.9% FLUSH 10 ML FLUSH IV FLUSH SCH (09:00)
[2017-01-16] MEDS ORDERED: LANSOPRAZOLE SOLUTAB 30 MG TAB NG SCH (09:00)
[2017-01-16] MEDS ORDERED: MULTIVITAMIN TAB PO SCH (09:00)
[2017-01-16] MEDS ORDERED: FOLIC ACID 1 MG TAB PO SCH (09:00)
[2017-01-16] MEDS: SODIUM CHLORIDE 0.9% FLUSH 10 ML FLUSH IV FLUSH SCH (09:00)
[2017-01-16 09:04] LABS: BLOOD GAS BASE EXCESS -21.8 mmol/L (-2-2); BLOOD GAS HCO3 9 mmol/L (22-26); BLOOD GAS METHEMOGLOBIN 1.5 % (0-2); BLOOD GAS O2 HGB SATURATION 87 % (90-100); BLOOD GAS OXYGEN CONTENT 9.4 Vol % (12.0-20.0); BLOOD GAS PCO2 48 mmHg (38-42); BLOOD GAS PO2 76 mmHg (61-120); BLOOD GAS TOTAL HGB 7.6 G/DL (12.0-16.0); TEMP CORR TO 98.6
[2017-01-16 09:05] LABS: CRITICAL VALUE YES; OXYGEN DEVICE VENTILATOR
[2017-01-16 09:06] LABS: DRAW SITE ART LINE; FIO2 100 %; STAT YES; VENT SETTINGS PRVC/AC
[2017-01-16] MEDS: DOCUSATE SODIUM 50 MG/SENNA 8.6 MG TAB PO SCH (09:17)
[2017-01-16] MEDS: THIAMINE HCL 100 MG TAB PO SCH (09:17)
[2017-01-16] MEDS: RIFAXIMIN 550 MG TAB PO SCH (09:17)
[2017-01-16] MEDS: PANTOPRAZOLE SODIUM 40 MG VIAL IV PUSH SCH (09:17)
--- NOTE | 2017-01-16 09:41 | HHI.GIFU ---
Subjective Remarks Patient is nonresponsive, currently maintained on ventilator support, agonal respirations under ventilator Daughter in room with patient Abdomen very firm, taut, obvious petechiae noted, no bowel sounds, (Gayle Major) Objective Vitals I&O Vital Signs Date Time Temp Pulse Resp B/P (MAP) Pulse Ox O2 Delivery O2 Flow Rate FiO2 01/16/17 09:18 2801/16/17 09:18 01/16/17 08:41 80 100 01/16/17 06:51 99 65/38 01/16/17 06:00 102 01/16/17 05:23 108 91/46 01/16/17 05:18 90 87/46 01/16/17 04:00 110 01/16/17 04:00 97.9 109 7 87/58 (68) 83 94/48 (63) 01/16/17 04:00 100 01/16/17 03:38 86 100 01/16/17 03:13 109 78/43 01/16/17 02:29 113 86/46 01/16/17 02:29 114 85/46 01/16/17 02:00 113 01/16/17 01:36 116 79/43 01/16/17 00:26 90 100 01/16/17 00:00 118 01/16/17 00:00 98.7 118 14 86/50 (62) 88 92/50 (64) 01/16/17 00:00 100 01/15/17 23:22 117 79/47 01/15/17 22:00 120 01/15/17 21:06 120 87/50 01/15/17 20:00 100 01/15/17 20:00 123 01/15/17 20:00 98.2 123 28 96/53 (67) 88 99/53 (68) 01/15/17 19:00 89 Mechanical Ventilator 100 01/15/17 18:53 124 100/53 01/15/17 18:00 127 01/15/17 17:00 124 01/15/17 16:30 91 60 01/15/17 16:19 120 84/49 01/15/17 16:00 98.6 121 28 77/52 (60) 91 89/51 (64) 01/15/17 16:00 100 01/15/17 16:00 121 01/15/17 15:32 122 92/51 01/15/17 15:00 122 01/15/17 15:00 122 16 90/52 (65) 93 01/15/17 14:00 122 14 100/52 (68) 95 99/48 (65) 01/15/17 14:00 122 01/15/17 13:00 119 01/15/17 13:00 119 28 108/57 (74) 96 107/52 (70) 01/15/17 12:00 118 01/15/17 12:00 100 01/15/17 12:00 98.0 118 20 118/63 (81) 95 114/50 (71) 01/15/17 11:40 97 70 01/15/17 11:20 114 113/75 01/15/17 11:15 111 98/48 01/15/17 11:10 115 99/46 01/15/17 11:05 113 92/44 01/15/17 11:00 111 01/15/17 11:00 111 34 95/54 (68) 100 01/15/17 11:00 111 95/54 01/15/17 10:55 112 98/54 01/15/17 10:39 111 34 94/55 (68) 100 01/15/17 10:36 113 33 94/53 (67) 100 01/15/17 10:33 114 34 98/53 (68) 100 01/15/17 10:30 112 32 92/53 (66) 100 01/15/17 10:27 112 31 97/55 (69) 100 01/15/17 10:15 114 31 91/53 (66) 100 01/15/17 10:00 114 29 95/48 (64) 99 01/15/17 10:00 114 01/15/17 09:56 113 29 80/43 (55) 99 I/O 01/15/17 01/15/17 01/15/17 01/16/17 01/16/17 01/16/17 07:00 15:00 23:00 07:00 15:00 23:00 Intake Total 4574 ml 3887 ml 2570 ml Output Total 15 ml 10 ml Balance 4574 ml 3872 ml 2560 ml Intake IV Total 4236 ml 2590 ml 2450 ml FFP 308 ml 945 ml Platelets 312 ml Blood Product IV Normal Saline Flush 30 ml 40 ml Other 120 ml Output Urine Total 15 ml 10 ml # Bowel Movements 1 0 Laboratory Laboratory Tests Test 01/15/17 09:35 01/15/17 09:45 01/15/17 10:00 01/15/17 10:03 Peritoneal Fluid WBC 8342 Peritoneal Fluid RBC 1541 Peritoneal Fluid Neutrophils 85 Peritoneal Fluid Lymphocytes 12 Peritoneal Fluid Histiocytes 2 Peritoneal Fluid Mesothelial Cells 1 Peritoneal Fluid Total Protein 0.6 Peritoneal Fluid Albumin 0.3 Peritoneal Fluid LDH 67 Peritoneal Fluid Glucose 1 Urine Color DARK-BROWN Urine Turbidity HAZY Urine pH 5.0 Urine Specific [place] 1.018 Urine Protein 30 Urine Glucose (UA) NEG Urine Ketones TRACE Urine Occult Blood SMALL Urine Nitrite NEG Urine Bilirubin MOD Urine Urobilinogen 2.0 Urine Leukocyte Esterase TRACE Urine RBC 6 Urine WBC 5 Urine Squamous Epithelial Cells 2 Urine Amorphous Sediment MOD Urine Bacteria MANY Microscopic Urinalysis Comment CULTURE INDICATED Urine Eosinophils NONE SEEN Urine Random Creatinine 358.2 Urine Random Sodium 9 Nasal Screen MRSA (PCR) MRSA NOT DETECTED Blood Gas Puncture Site LT BRACHIAL Blood Gas Patient Temperature 37.0 Blood Gas HCO3 9 Blood Gas Base Excess -17.5 Blood Gas Oxygen Saturation 96 Arterial Blood pH 7.19 Arterial Blood Partial Pressure CO2 25 Arterial Blood Partial Pressure O2 111 Arterial Blood Oxygen Content 14.3 Arterial Blood Carboxyhemoglobin 0.8 Arterial Blood Methemoglobin 0.4 Blood Gas Hemoglobin 10.5 Oxygen Delivery Device BIPAP Blood Gas Ventilator Setting IPAP 12/EPAP 5 Blood Gas Inspired Oxygen 50 Phosphorus Level 3.8 Magnesium Level 1.6 Total Creatine Kinase 594 Creatine Kinase MB 2.6 Creatine Kinase MB % 0.4 Troponin I 0.03 Amylase Level 35 Lipase 70 Test 01/15/17 10:45 01/15/17 12:50 01/15/17 13:35 01/15/17 13:39 Prothrombin Time 23.0 Prothromb Time International Ratio 2.3 Activated Partial Thromboplast Time 66.0 Fibrinogen 128 Blood Gas Puncture Site ART LINE Blood Gas Patient Temperature 98.6 Blood Gas HCO3 9 Blood Gas Base Excess -19.9 Blood Gas Oxygen Saturation 96 Arterial Blood pH 6.97 Arterial Blood Partial Pressure CO2 43 Arterial Blood Partial Pressure O2 153 Arterial Blood Oxygen Content 14.3 Arterial Blood Carboxyhemoglobin 0.0 Arterial Blood Methemoglobin 1.1 Blood Gas Hemoglobin 10.4 Oxygen Delivery Device VENTILATOR Blood Gas Ventilator Setting PRVC/AC 600/20 Blood Gas Inspired Oxygen 70 Lactic Acid Level 11.9 Blood Urea Nitrogen 31 Creatinine 2.88 Random Glucose 136 Total Protein 4.2 Calcium Level 6.8 Sodium Level 138 Potassium Level 3.0 Chloride Level 105 Carbon Dioxide Level 13.7 Anion Gap 19 Estimat Glomerular Filtration Rate 22 Protein Corrected Calcium 8.4 Test 01/15/17 15:25 01/15/17 16:02 01/15/17 19:59 01/15/17 20:30 Blood Gas Puncture Site ART LINE ART LINE Blood Gas Patient Temperature 98.6 98.6 Blood Gas HCO3 9 11 Blood Gas Base Excess -19.9 -18.1 Blood Gas Oxygen Saturation 90 97 Arterial Blood pH 6.98 7.03 Arterial Blood Partial Pressure CO2 42 43 Arterial Blood Partial Pressure O2 85 139 Arterial Blood Oxygen Content 12.0 12.6 Arterial Blood Carboxyhemoglobin 0.2 0.2 Arterial Blood Methemoglobin 1.0 1.1 Blood Gas Hemoglobin 9.4 9.1 Oxygen Delivery Device VENTILATOR VENTILATOR Blood Gas Ventilator Setting [facility] Blood Gas Inspired Oxygen 60 100 Lactic Acid Level 14.7 Tumor Marker Alpha Fetoprotein 86.5 Test 01/16/17 00:20 01/16/17 05:00 01/16/17 05:35 01/16/17 06:10 Blood Urea Nitrogen 30 33 Creatinine 3.45 3.73 Random Glucose 57 38 Total Protein 4.4 4.1 Calcium Level 6.4 6.2 Sodium Level 139 138 Potassium Level 3.4 4.0 Chloride Level 102 100 Carbon Dioxide Level 13.1 10.1 Anion Gap 24 28 Estimat Glomerular Filtration Rate 18 16 Lactic Acid Level 16.2 Protein Corrected Calcium 7.8 7.7 Acetaminophen Level LESS THAN 2.0 White Blood Count 6.3 Red Blood Count 2.53 Hemoglobin 8.4 Hematocrit 26.5 Mean Corpuscular Volume 104.8 Mean Corpuscular Hemoglobin 33.3 Mean Corpuscular Hemoglobin Concent 31.8 Red Cell Distribution Width 16.7 Platelet Count 24 Mean Platelet Volume 10.3 Neutrophils (%) (Auto) 78.6 Lymphocytes (%) (Auto) 10.1 Monocytes (%) (Auto) 4.6 Eosinophils (%) (Auto) 6.6 Basophils (%) (Auto) 0.1 Neutrophils # (Auto) 5.0 Lymphocytes # (Auto) 0.6 Monocytes # (Auto) 0.3 Eosinophils # (Auto) 0.4 Basophils # (Auto) 0.0 CBC Comment AUTO DIFF Differential Total Cells Counted 100 Neutrophils % (Manual) 7 Band Neutrophils % 41 Lymphocytes % 11 Monocytes % 5 Eosinophils % 6 Neutrophils # (Manual) 4.9 Metamyelocytes 25 Myelocytes 5 Nucleated Red Blood Cells 1 Differential Comment FINAL DIFF MANUAL Toxic Vacuolation PRESENT Platelet Estimate LOW Platelet Morphology Comment NORMAL Tear Drop Cells 1+ Ovalocytes 1+ Keratocytes 1+ Albumin 1.7 Phosphorus Level 7.9 Magnesium Level 1.7 Alkaline Phosphatase 20 Aspartate Amino Transf (AST/SGOT) 427 Alanine Aminotransferase (ALT/SGPT) 114 Total Bilirubin 10.8 Ammonia 225 Troponin I 0.88 Blood Gas Puncture Site A Blood Gas Patient Temperature 98.6 Blood Gas HCO3 8 Blood Gas Base Excess -21.2 Blood Gas Oxygen Saturation 97 Arterial Blood pH 6.96 Arterial Blood Partial Pressure CO2 39 Arterial Blood Partial Pressure O2 157 Arterial Blood Oxygen Content 10.8 Arterial Blood Carboxyhemoglobin 0.0 Arterial Blood Methemoglobin 1.3 Blood Gas Hemoglobin 7.7 Oxygen Delivery Device VENT Blood Gas Ventilator Setting SEE COMMENT Blood Gas Inspired Oxygen 100 Prothrombin Time 31.7 Prothromb Time International Ratio 3.1 Activated Partial Thromboplast Time 110.5 Fibrinogen 95 Test 01/16/17 08:44 Blood Gas Puncture Site ART LINE Blood Gas Patient Temperature 98.6 Blood Gas HCO3 9 Blood Gas Base Excess -21.8 Blood Gas Oxygen Saturation 87 Arterial Blood pH 6.88 Arterial Blood Partial Pressure CO2 48 Arterial Blood Partial Pressure O2 76 Arterial Blood Oxygen Content 9.4 Arterial Blood Carboxyhemoglobin 0.0 Arterial Blood Methemoglobin 1.5 Blood Gas Hemoglobin 7.6 Oxygen Delivery Device VENTILATOR Blood Gas Ventilator Setting PRVC/AC Blood Gas Inspired Oxygen 100 Date/Time Source Procedure Growth Status 01/15/17 07:05 Blood Peripheral Aerobic Blood Culture - Preliminary Gram Negative Jesse Resulted 01/15/17 07:05 Anaerobic Blood Culture - Preliminary Gram Negative Jesse Resulted 01/15/17 09:35 Fluid Peritoneal Fluid Fungal Smear Pending Received 01/15/17 09:35 Fluid Peritoneal Fluid Fungal Culture Pending Received 01/16/17 06:10 Nasal Aspirate Influenza Types A,B Antigen (YAYA) Pending Ordered 01/15/17 09:45 Urine Catheterized Urine Legionella Antigen - Final PRESUMPTIVE NEGATIVE FOR LEGIONELLA P... Complete 01/15/17 09:45 Urine Catheterized Urine Streptococcus pneumoniae Antigen (M - Final PRESUMPTIVE NEGATIVE FOR STREPTOCOCCU... Complete Imaging Last Impressions Chest X-Ray 01/15/17 1105 Signed Impressions: Service Date/Time: Sunday, January 15, 2017 11:14 - CONCLUSION: 1. No pneumothorax following central venous catheter placement. Catheters in good position. Sudhakar Perea MD Abdomen X-Ray 01/15/17 0000 Signed Impressions: Service Date/Time: Sunday, January 15, 2017 12:24 - CONCLUSION: NG tube in the stomach Alberto Guallpa MD Abdomen Ultrasound 01/15/17 0000 Signed Impressions: Service Date/Time: Sunday, January 15, 2017 07:43 - CONCLUSION: Cirrhotic liver with splenomegaly and ascites. Alberto Guallpa MD Physical Exam HEENT: normocephalic; atraumatic; generalized jaundice, ET tube in NECK: Neck supple CHEST: Chest, rhonchi, decreased volumes, breath sounds CARDIAC: S1 and S2 distant heart sounds ABDOMEN: Abdomen firm, distended , mottled, petechiae , bright red blood minimal amount via paracentesis right upper quadrant bag intact, bowel sounds absent EXTREMITIES , cyanosis SKIN: [place], jaundice MARKING STITCHER: Nonresponsive (Gayle Major) Assessment and Plan Plan ASSESSMENT: - Acute liver failure, liver cirrhosis, ? alcoholic hepatitis component, hx Hep B. Pt with hx of known cirrhosis. He was drinking ETOH in November of this year. Currently patient's overall medical status has declined over the past 12 hours. Treatment regimen has been maxed with minimal to no response. Daughter is at the bedside and aware of prognosis. Doesn't want any further treatments initiated but is not ready to remove treatments. Initial LFT with T. Bilirubin 14.9, AST 107, ALT 58, Alk Phosph 58, Alk Phosph 83, and creat 2.33. It is unknown if he is currently drinking, US (01/15/17)---> Cirrhotic liver with splenomegaly and ascites. DF 65.500. MELD 34. Will get acetaminophen level. Will add Pentoxifylline in case there is any alcoholic hepatitis component. - Ascites with SBP. S/P bedside paracentesis with 5.2 L removed. Currently has paracentesis bag right upper quadrant, small minimal amount of bright red fluid in bag - Hepatic encephalopathy. Xifaxan and Lactulose. - Pancytopenia. 1 unit PRBC received on admission - Coagulopathy/thrombocytopenia. Later count remains low - Hepatitis B surface ag (+), Hep Be Ab (+), Undetectable viral load. - Hx elevated AFP.no liver masses were appreciated on MRI of abdomen at that time. - Respiratory failure, MILLY. Vent per CCM. - ARF, Minimal UOP, monitor per attending - Sepsis, Cx pending. Zosyn. ID following. PLAN: - NPO Patient's current condition has declined tremendously over the past 12 hours, daughter in room and wants to currently maintaining medications at their max rate which includes blood pressure medicine. Supportive care to daughter, patient's CODE STATUS is DO NOT RESUSCITATE, but remains active treatment for now GI available if needed. - Protonix 40mg IV daily - Pentoxifylline 400mg q8h - Cont. Xifaxan - Cont. Lactulose - Cont. Zosyn - AFP level - Monitor HH - Transfuse as necessary if daughter agrees and is warranted - Further recommendations to follow based on results of above - Pt seen and examined by Dr. Fernandez and myself and this note is written on her behalf (Gayle Major) Gayle Major Jan 16, 2017 09:41 Danae Fernandez MD Jan 16, 2017 16:28
--- NOTE | 2017-01-16 09:49 | HHI.DS ---
Summary Note Date of : Jan 16, 2017 Time Of : 09:33 Admission Date Jan 15, 2017 at 06:46 Admitting Diagnosis SEPSIS PNA LIVER FAILURE Diagnosis at Time of : (1) Severe sepsis with acute organ dysfunction ICD Code: A41.9 - Sepsis, unspecified organism; R65.20 - Severe sepsis without septic shock Diagnosis: Principal (2) Respiratory failure ICD Code: J96.90 - Respiratory failure, unspecified, unspecified whether with hypoxia or hypercapnia Diagnosis: Principal (3) Lactic acidosis ICD Code: E87.2 - Acidosis Diagnosis: Principal (4) Gastroesophageal reflux disease ICD Code: K21.9 - Gastro-esophageal reflux disease without esophagitis Diagnosis: Secondary (5) MILLY (obstructive sleep apnea) ICD Code: G47.33 - Obstructive sleep apnea (adult) (pediatric) Diagnosis: Secondary (6) History of CVA (cerebrovascular accident) ICD Code: Z86.73 - Personal history of transient ischemic attack (TIA), and cerebral infarction without residual deficits Diagnosis: Secondary (7) History of hypertension ICD Code: Z86.79 - Personal history of other diseases of the circulatory system Diagnosis: Secondary (8) Hypoalbuminemia ICD Code: E88.09 - Other disorders of plasma-protein metabolism, not elsewhere classified Diagnosis: Secondary (9) Acute kidney injury ICD Code: N17.9 - Acute kidney failure, unspecified Diagnosis: Principal (10) Diabetes mellitus ICD Code: E11.9 - Type 2 diabetes mellitus without complications Diagnosis: Secondary (11) Macrocytic anemia ICD Code: D53.9 - Nutritional anemia, unspecified Diagnosis: Principal (12) Leukopenia ICD Code: D72.819 - Decreased white blood cell count, unspecified Diagnosis: Principal (13) Hepatitis B ICD Code: B19.10 - Unspecified viral hepatitis B without hepatic coma Diagnosis: Secondary (14) Total bilirubin, elevated ICD Code: R17 - Unspecified jaundice Diagnosis: Principal (15) Abdominal pain ICD Code: R10.9 - Unspecified abdominal pain Diagnosis: Principal (16) Liver cirrhosis ICD Code: K74.60 - Unspecified cirrhosis of liver Diagnosis: Principal (17) Cellulitis ICD Code: L03.90 - Cellulitis, unspecified Diagnosis: Principal Procedures Paracentesis - Dr. Rosa Brief History 66-year-old male. Date of admission 01/15/2017. Past medical history includes hepatitis B, liver cirrhosis likely alcoholic, COPD, coronary disease, hypertension, dyslipidemia, CVA history, MILLY, gastric reflux disease, EtOH and prior tobaccoism., He presents to [facility] with a recent history of multiple paracentesis to drain fluid off he said only 2 days ago he had over 7 L drawn off. He presents today secondary to having shortness of breath and generalized abdominal pain he is very jaundiced in appearance and his abdomen is distended with ascites his skin is very yellow he is breathing and increased respiratory rate and saying he is having difficulty breathing Patient is a 63 L normal saline due to hypotension. Received 1 dose of vancomycin and piperacillin/tazobactam ED. Lactate elevated at 9. Patient has a leukopenia 0.9. Acute kidney injury 2.3 baseline is normal. Patient was transferred to the ICU. He is transferred from nasal cannula BiPAP due to acute respiratory failure. Patient had 5.2 L of brownish yellow cloudy ascitic fluid drained by Dr. Rosa ABG revealed significant metabolic/ respiratory acidosis. He received multiple ampules of bicarbonate. Due to underlying hypertension a central line and arterial line was placed. CBC/BMP: 01/16/17 0500 01/16/17 0500 Significant Findings Laboratory Tests Test 01/15/17 04:41 01/15/17 07:08 01/15/17 09:35 01/15/17 09:45 White Blood Count 0.9 TH/MM3 (4.0-11.0) Red Blood Count 3.42 MIL/MM3 (4.50-5.90) Hemoglobin 11.4 GM/DL (13.0-17.0) Hematocrit 34.2 % (39.0-51.0) Mean Corpuscular Volume 100.2 FL (80.0-100.0) Platelet Count 39 TH/MM3 (150-450) Band Neutrophils % 8 % (0-6) Monocytes % 12 % (0-8) Neutrophils # (Manual) 0.7 TH/MM3 (1.8-7.7) Metamyelocytes 12 % (0-1) Myelocytes 1 % (0-0) Promyelocytes 2 % (0-0) Blood Urea Nitrogen 30 MG/DL (7-18) Creatinine 2.33 MG/DL (0.60-1.30) Random Glucose 53 MG/DL (74-106) Total Protein 5.0 GM/DL (6.4-8.2) Albumin 2.0 GM/DL (3.4-5.0) Calcium Level 7.8 MG/DL (8.5-10.1) Aspartate Amino Transf (AST/SGOT) 107 U/L (15-37) Total Bilirubin 14.9 MG/DL (0.2-1.0) Sodium Level 134 MEQ/L (136-145) Carbon Dioxide Level 15.2 MEQ/L (21.0-32.0) Anion Gap 16 MEQ/L (5-15) Estimat Glomerular Filtration Rate 28 ML/MIN (>89) Lactic Acid Level 9.3 mmol/L (0.4-2.0) 8.9 mmol/L (0.4-2.0) Lactate Dehydrogenase 246 U/L (87-241) Peritoneal Fluid WBC 8342 /MM3 (0-10) Peritoneal Fluid RBC 1541 /MM3 (0-0) Urine Color DARK-BROWN (YELLW/STRAW) Urine Turbidity HAZY (CLEAR) Urine Protein 30 mg/dL (NEG-TRACE) Urine Ketones TRACE mg/dL (NEG) Urine Occult Blood SMALL (NEG) Urine Bilirubin MOD (NEG) Urine Leukocyte Esterase TRACE (NEG) Urine RBC 6 /hpf (0-3) Urine Bacteria MANY /hpf (NONE) Test 01/15/17 10:00 01/15/17 10:03 01/15/17 10:45 01/15/17 12:50 Blood Gas HCO3 9 mmol/L (22-26) 9 mmol/L (22-26) Blood Gas Base Excess -17.5 mmol/L (-2-2) -19.9 mmol/L (-2-2) Arterial Blood pH 7.19 (7.380-7.420) 6.97 (7.380-7.420) Arterial Blood Partial Pressure CO2 25 mmHg (38-42) 43 mmHg (38-42) Blood Gas Hemoglobin 10.5 G/DL (12.0-16.0) 10.4 G/DL (12.0-16.0) Total Creatine Kinase 594 U/L (39-308) Lipase 70 U/L (73-393) Prothrombin Time 23.0 SEC (9.8-11.6) Activated Partial Thromboplast Time 66.0 SEC (24.3-30.1) Fibrinogen 128 mg/dL (227-377) Arterial Blood Partial Pressure O2 153 mmHg (61-120) Test 01/15/17 13:35 01/15/17 13:39 01/15/17 15:25 01/15/17 16:02 Lactic Acid Level 11.9 mmol/L (0.4-2.0) Blood Urea Nitrogen 31 MG/DL (7-18) Creatinine 2.88 MG/DL (0.60-1.30) Random Glucose 136 MG/DL (74-106) Total Protein 4.2 GM/DL (6.4-8.2) Calcium Level 6.8 MG/DL (8.5-10.1) Potassium Level 3.0 MEQ/L (3.5-5.1) Carbon Dioxide Level 13.7 MEQ/L (21.0-32.0) Anion Gap 19 MEQ/L (5-15) Estimat Glomerular Filtration Rate 22 ML/MIN (>89) Protein Corrected Calcium 8.4 MG/DL (8.5-10.1) Blood Gas HCO3 9 mmol/L (22-26) Blood Gas Base Excess -19.9 mmol/L (-2-2) Arterial Blood pH 6.98 (7.380-7.420) Blood Gas Hemoglobin 9.4 G/DL (12.0-16.0) Test 01/15/17 19:59 01/15/17 20:30 01/16/17 00:20 01/16/17 05:00 Blood Gas HCO3 11 mmol/L (22-26) Blood Gas Base Excess -18.1 mmol/L (-2-2) Arterial Blood pH 7.03 (7.380-7.420) Arterial Blood Partial Pressure CO2 43 mmHg (38-42) Arterial Blood Partial Pressure O2 139 mmHg (61-120) Blood Gas Hemoglobin 9.1 G/DL (12.0-16.0) Lactic Acid Level 14.7 mmol/L (0.4-2.0) 16.2 mmol/L (0.4-2.0) Tumor Marker Alpha Fetoprotein 86.5 NG/ML (0.5-8.0) Blood Urea Nitrogen 30 MG/DL (7-18) 33 MG/DL (7-18) Creatinine 3.45 MG/DL (0.60-1.30) 3.73 MG/DL (0.60-1.30) Random Glucose 57 MG/DL (74-106) 38 MG/DL (74-106) Total Protein 4.4 GM/DL (6.4-8.2) 4.1 GM/DL (6.4-8.2) Calcium Level 6.4 MG/DL (8.5-10.1) 6.2 MG/DL (8.5-10.1) Potassium Level 3.4 MEQ/L (3.5-5.1) Carbon Dioxide Level 13.1 MEQ/L (21.0-32.0) 10.1 MEQ/L (21.0-32.0) Anion Gap 24 MEQ/L (5-15) 28 MEQ/L (5-15) Estimat Glomerular Filtration Rate 18 ML/MIN (>89) 16 ML/MIN (>89) Protein Corrected Calcium 7.8 MG/DL (8.5-10.1) 7.7 MG/DL (8.5-10.1) Acetaminophen Level LESS THAN 2.0 MCG/ML Red Blood Count 2.53 MIL/MM3 (4.50-5.90) Hemoglobin 8.4 GM/DL (13.0-17.0) Hematocrit 26.5 % (39.0-51.0) Mean Corpuscular Volume 104.8 FL (80.0-100.0) Mean Corpuscular Hemoglobin Concent 31.8 % (32.0-36.0) Platelet Count 24 TH/MM3 (150-450) Neutrophils (%) (Auto) 78.6 % (16.0-70.0) Eosinophils (%) (Auto) 6.6 % (0.0-4.0) Lymphocytes # (Auto) 0.6 TH/MM3 (1.0-4.8) Neutrophils % (Manual) 7 % (16-70) Band Neutrophils % 41 % (0-6) Eosinophils % 6 % (0-4) Metamyelocytes 25 % (0-1) Myelocytes 5 % (0-0) Nucleated Red Blood Cells 1 /100 WBC (0-0) Toxic Vacuolation PRESENT (NONE SEEN) Platelet Estimate LOW (NORMAL) Tear Drop Cells 1+ (NORMAL) Ovalocytes 1+ (NORMAL) Keratocytes 1+ (NORMAL) Albumin 1.7 GM/DL (3.4-5.0) Phosphorus Level 7.9 MG/DL (2.5-4.9) Alkaline Phosphatase 20 U/L (45-117) Aspartate Amino Transf (AST/SGOT) 427 U/L (15-37) Alanine Aminotransferase (ALT/SGPT) 114 U/L (12-78) Total Bilirubin 10.8 MG/DL (0.2-1.0) Ammonia 225 MCMOL/L (11-32) Troponin I 0.88 NG/ML (0.02-0.05) Test 01/16/17 05:35 01/16/17 06:10 01/16/17 08:44 Blood Gas HCO3 8 mmol/L (22-26) 9 mmol/L (22-26) Blood Gas Base Excess -21.2 mmol/L (-2-2) -21.8 mmol/L (-2-2) Arterial Blood pH 6.96 (7.380-7.420) 6.88 (7.380-7.420) Arterial Blood Partial Pressure O2 157 mmHg (61-120) Arterial Blood Oxygen Content 10.8 Vol % (12.0-20.0) 9.4 Vol % (12.0-20.0) Blood Gas Hemoglobin 7.7 G/DL (12.0-16.0) 7.6 G/DL (12.0-16.0) Prothrombin Time 31.7 SEC (9.8-11.6) Activated Partial Thromboplast Time 110.5 SEC (24.3-30.1) Fibrinogen 95 mg/dL (227-377) Blood Gas Oxygen Saturation 87 % (90-100) Arterial Blood Partial Pressure CO2 48 mmHg (38-42) Imaging Last Impressions Chest X-Ray 01/15/17 0000 Signed Impressions: Service Date/Time: Sunday, January 15, 2017 05:01 - CONCLUSION: Mild bibasilar opacity likely represents atelectasis given the underinflation. Otherwise, no acute finding is identified. Alberto Singh MD Hospital Course Assessment and Plan Neuro/Psych: Toxic metabolic encephalopathy Chronic benzodiazepine use Depression/anxiety History of EtOH History of CVA Chronic narcotic use Currently holding clonazepam 1 mg twice a day home medication Currently holding oxycodone 5 mill grams every 6 hours when necessary home medication for pain CT brain currently pending Ammonia level was 29 Continue thiamine 100 mg daily CV: Severe sepsis multisystem organ failure History of hypertension Dyslipidemia History of coronary artery disease Lactic acidosis Currently on sterile water with 3 ampules of bicarbonate 150 cc an hour Hold nadolol 20 mg by mouth daily Check CVP Use phenylephrine titrated to keep mean arterial pressure greater than 65 Arterial line is in place Serial lactates until cleared Resp: Acute hypoxic and hypercapnic respiratory failure History of obstructive sleep apnea History of tobaccoism Will likely be on intubated shortly Currently on BiPAP 10/5 at 40% Albuterol/ipratropium aerosols every 4 hours of albuterol aerosols every 2 hours. Dyspnea Follow-up on x-ray post intubation GI: Abdominal ascites Hepatitis B carrier History of gastric varices History of hiatal hernia Abdominal wall cellulitis Elevated total bilirubin Abdominal ascites status post 5-2 L Elevated LDH NG tube will be placed carefully LIWS lansoprazole for GI prophylaxis Docusate sodium/senna for bowel regimen Liver ultrasound revealed dental ascites Follow-up on paracentesis laboratories : Scrotal edema Crawford catheter has been placed for accurate I's and O's in a critically ill patient Endo: Diabetes mellitus Sliding-scale insulin with Accu-Cheks every 6 hours to maintain euglycemia Novulin R low regimen TSH in a.m. Renal: Acute kidney injury Abdominal ultrasound revealed no signs of hydronephrosis Hold nephrotoxic medications Urine eosinophils and electrolytes pending Heme: Pancytopenia including leukopenia, macrocytic anemia and thrombocytopenia Follow-up CBC and coags in AM. Monitor trends Transfuse 2 20 FFP and one pack platelets by Dr. Rosa ID: Sepsis unknown source Rule out SBP Broad-spectrum antibiotics include vancomycin and piperacillin/tazobactam Blood cultures 2, sputum, urine, influenza, urine pneumococcal and Legionella antigens and paracentesis studies all pending Infectious disease consultation MSK: Osteoarthritis PT evaluate and treat FEN: Replace electrolytes as clinically indicated Access - Utilize peripheral IV. Central line if indicated Peritoneal access - GI - pantoprazole - DVT - SCD/holding pharmacological prophylaxis in light of thrombocytopenia Critical Care: The total critical care time was 35 minutes. Time to perform other separately billable procedures was not included in the critical care time. Code Status Full code Discussed Condition With ED physician. Care plan discussed and all questions answered Discussed with healthcare proxy daughter Morenita Kellogg. discussed current medical situation which includes multisystem organ failure. Daughter requested DNR status. Will provide maximal medical therapy in the interim. Overnight, patient increasing vasopressor requirements on vasopressin, norepinephrine and for drips which were all at maximum dosages. Patient is also stress dose Solu-Cortef in 100 mg every 8 hours. Despite this his lactate continued to climb. Patient had no urine output. A.m. labs revealed a lactate of 16, shock liver, creatinine 3.8. ABG revealed a significant respiratory metabolic acidosis. Patient was a DNR per daughter request. No escalation of care despite 3 vasopressors. Patient had a asystole on his rhythm monitored 0928. Officially pronounced at 09 33. Gentry Yeung MD Jan 16, 2017 09:49
--- NOTE | 2017-01-16 09:53 | DEATH SUM ---
Summary Demographics Date Pronounced : Jan 16, 2017 Time Of : 09:33 Pronounced By: Dr. Yeung Preliminary Cause of : Sepsis Gentry Yeung MD Jan 16, 2017 09:53
[2017-01-16] MEDS ORDERED: RESP: ALBUTEROL 2.5 MG/IPRATROPIUM 0.5 MG NEB (SCH) NEB (10:00)
[2017-01-18 10:09] LABS: HEPATITIS B SURFACE ANTIBODY 0.1 mIU/mL
== END 2017-01-16 09:33 | disposition expired | DRG 871 ==
LOC: NEPC 03:38 → NEDA 06:46 → HIMN 08:45
PROVIDERS: ADMIT Internal Medicine Critical Care Medicine; ATTEND Internal Medicine Critical Care Medicine
PROC: 5A1935Z Respiratory Ventilation, Less than 24 Consecutive Hours (ICD-10-PCS; principal; 2017-01-15)
PROC: 04HY32Z Insertion of Monitoring Device into Lower Artery, Percutaneous Approach (ICD-10-PCS; 2017-01-15)
PROC: 0BH17EZ Insertion of Endotracheal Airway into Trachea, Via Natural or Artificial Opening (ICD-10-PCS; 2017-01-15)
PROC: 0W9G3ZZ Drainage of Peritoneal Cavity, Percutaneous Approach (ICD-10-PCS; 2017-01-15)
PROC: 30233K1 Transfusion of Nonautologous Frozen Plasma into Peripheral Vein, Percutaneous Approach (ICD-10-PCS; 2017-01-15)
PROC: 30233R1 Transfusion of Nonautologous Platelets into Peripheral Vein, Percutaneous Approach (ICD-10-PCS; 2017-01-15)
PROC: B543ZZA Ultrasonography of Right Jugular Veins, Guidance (ICD-10-PCS; 2017-01-15)
PROC: 02HV33Z Insertion of Infusion Device into Superior Vena Cava, Percutaneous Approach (ICD-10-PCS; 2017-01-15)
DX: A41.51 Sepsis due to Escherichia coli [E. coli] (principal); G92 Toxic encephalopathy; K72.00 Acute and subacute hepatic failure without coma; R65.21 Severe sepsis with septic shock; J69.0 Pneumonitis due to inhalation of food and vomit; J96.01 Acute respiratory failure with hypoxia; J96.02 Acute respiratory failure with hypercapnia; N17.9 Acute kidney failure, unspecified; E87.2 Acidosis; D68.9 Coagulation defect, unspecified; K65.2 Spontaneous bacterial peritonitis; D61.818 Other pancytopenia; L03.311 Cellulitis of abdominal wall; B18.1 Chronic viral hepatitis B without delta-agent; E11.9 Type 2 diabetes mellitus without complications; D53.9 Nutritional anemia, unspecified; I25.10 Atherosclerotic heart disease of native coronary artery without angina pectoris; E78.5 Hyperlipidemia, unspecified; I10 Essential (primary) hypertension; K70.31 Alcoholic cirrhosis of liver with ascites; K21.9 Gastro-esophageal reflux disease without esophagitis; I25.2 Old myocardial infarction; E88.09 Other disorders of plasma-protein metabolism, not elsewhere classified; J44.9 Chronic obstructive pulmonary disease, unspecified; K42.9 Umbilical hernia without obstruction or gangrene; K70.11 Alcoholic hepatitis with ascites; G47.33 Obstructive sleep apnea (adult) (pediatric); M19.90 Unspecified osteoarthritis, unspecified site; F32.9 Major depressive disorder, single episode, unspecified; F41.1 Generalized anxiety disorder; Z66 Do not resuscitate; Z79.84 Long term (current) use of oral hypoglycemic drugs; Z86.73 Personal history of transient ischemic attack (TIA), and cerebral infarction without residual deficits; Z87.891 Personal history of nicotine dependence
CPT/HCPCS: 31500; 36430; 36556; 36600; 49082; 71010; 74000; 76700; 76937; 80048; 80053; 80307; 81001; 82042; 82105; 82140; 82150; 82550; 82552; 82570; 82805; 82945; 82948; 83605; 83615; 83690; 83735; 84100; 84155; 84157; 84300; 84484; 85007; 85027; 85384; 85610; 85730; 86317; 86704; 86850; 86900; 86901; 86927; 87015; 87040; 87070; 87077; 87086; 87102; 87116; 87186; 87205; 87206; 87340; 87350; 87449; 87517; 87641; 88112; 89051; 93005; 94002; 94003; 94664; 96365; 96367; 96375; C9113; C9132; J1720; J2250; J2270; J2370; J2405; J2543; J3010; J3370; J3475; J7030; J7050; J7060; P9017; P9035; P9045; P9047; Q9963